=== PATIENT | female | born 1940 | race Caucasian/White ===

== ENCOUNTER 2017-11-03 13:00 | Outpatient (RCR) | payer MEDICARE, SELFPAY ==
--- NOTE | 2017-10-14 14:42 | HMH.PTOPWND ---
Rehab Outpt Wound Evaluation Rehab OP Wound Evaluation Start: 10/14/17 13:56 Freq: Status: Active Protocol: Document 10/14/17 14:34 PHOMICA (Rec: 10/14/17 14:42 PHORNE [id number]) Electronically Signed By Jan Nichols, PT 10/14/17 14:34 Subjective/History History History Pt presents with c/o right lower leg increased edema and itching x ~2 wks. She reports she has had several episodes of these symptoms and previously has a fissure in her right lower leg that was leaking fluid. She reports PMH of CCY, SHANE, left breast lumpectomy x 2 due to breast cancer, rectal cancer treated with chemo and radiation, DVT in left LE, CVI, pulmonary embolism sedrick, Pacemaker, A-fib with nerve ablation performed , pulmonary HTN. Subjective Subjective Currently no c/o pain. Lymphedema Eval Classification of Lymphedema Secondary Lymphedema Yes Stemmer's sign Stemmer's Sign no Stage of Lymphedema Lymphedema stages Stage I (Pitting edema, reduces w/ elevation, no fibrosis) Skin Changes Dry Skin Yes Taut, Shiny Skin Yes Redness Yes Affected Extremities Areas Affected by Lymphedema/Edema Right Lower Extremity Manual Lymphatic Drainage Treatment Area MLD Treatment Area Right Lower Extremity Wound Problems/Impairments Impairments Problems/Impairmments Palpation Tenderness Impaired Endurance Impaired Gait Pattern Impaired Walking Impaired Standing Increased Edema Lymphedema Present Wound Care Needs Impaired Self Care/Self Management Prognosis Rehab Potential Fair Clinical Impression Consistent with Diagnosis Yes Short Term Goals Number of Weeks 4 Decreased Palpation Tenderness Yes: to min Patient to Understand Lymphedema Yes Treatment and Exercises Decrease Girth Measurments by (cm) Yes: 5 cm 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
== END 2017-11-03 13:01 | disposition home or self-care (01) ==
LOC: PT 13:00
PROVIDERS: Family Provider Family Medicine; PCP Family Medicine; Visit Provider Internal Medicine
DX: I87.2 Venous insufficiency (chronic) (peripheral) (principal)
CPT/HCPCS: 97140; 97162; 97760

== ENCOUNTER → 2018-07-09 10:50 | Outpatient (CLI) | payer MEDICARE, SELFPAY ==
[2018-07-10 17:19] LABS: C difficile Toxins AB, EIA Negative (Negative)
== END ==
PROVIDERS: Visit Provider Internal Medicine
DX: R19.7 Diarrhea, unspecified (principal)
CPT/HCPCS: 87324

== ENCOUNTER → 2018-10-13 13:54 | Outpatient (CLI) | payer MEDICARE, SELFPAY ==
--- NOTE | 2018-10-13 13:56 | XR_ITS ---
XR DEXA axial skeleton HISTORY: ITS.REASON: POST MENOAPSUAL ORDERING PHYSICIAN: Jose Bernal PATIENT AGE: 78 years COMPARISON: None FINDINGS: The BMD measured at the Left femoral neck is 0.657 g/cm squared with a T score of -2.7. This is considered Osteoporotic according to the World Health Organization criteria. Fracture risk is High. Treatment is advised. The L1 L4 density has a T score of 3.0 likely secondary to osteosclerosis of the endplates. IMPRESSION: Osteoporosis with high fracture risk. Treatment is advised. Recommend follow-up exam september 2019
== END ==
PROVIDERS: PCP Internal Medicine; Visit Provider Internal Medicine
DX: Z78.0 Asymptomatic menopausal state (principal)
CPT/HCPCS: 77080

== ENCOUNTER → 2019-02-19 13:44 | Outpatient (CLI) | payer MEDICARE, SELFPAY ==
[2019-02-19 13:55] LABS: Basophils # 0.1 K/mm3 (0-0.2); Basophils % 0.7 % (0.1-2.0); Eosinophils # 0.1 K/mm3 (0.0-0.4); Eosinophils % 2.1 % (0.1-12.0); Hematocrit 41.4 % (37.0-47.0); Hemoglobin 12.3 g/dL (12.2-16.2); Lymphocytes # 1.2 K/mm3 (0.7-4.5); Lymphocytes % 18.5 % (10-50); Mean Corpuscular HGB Conc 29.8 g/dL (31.8-35.4); Mean Corpuscular Hemoglobin 29.9 pg (27.0-31.2); Mean Corpuscular Volume 100.5 fl (81-99); Monocytes # 0.4 K/mm3 (0.1-1.0); Monocytes % 6.4 % (1.7-9.3); Neutrophils # 4.8 K/mm3 (1.8-7.8); Neutrophils % 72.3 % (37.0-80.0); Platelet Count 247 K/mm3 (142-424); Red Blood Count 4.12 M/mm3 (4.20-5.40); Red Cell Distribution Width 15.1 % (11.5-17.5); White Blood Count 6.6 K/mm3 (4.8-10.8)
== END ==
PROVIDERS: Visit Provider Internal Medicine
DX: K92.1 Melena (principal)
CPT/HCPCS: 36415; 85025

== ENCOUNTER → 2019-11-01 11:21 | Outpatient (CLI) | payer MEDICARE, SELFPAY ==
[2019-11-01 15:24] LABS: Coronavirus 19 IgG Antibody Negative (Negative); Coronavirus 19 IgM Antibody Negative (Negative)
== END ==
PROVIDERS: Visit Provider Ophthalmology
DX: Z01.818 Encounter for other preprocedural examination (principal)
CPT/HCPCS: 36415; 86328

== ENCOUNTER 2019-11-02 07:49 | Day surgery (SDC) | payer MEDICARE, SELFPAY ==
[2019-10-27 10:17] VITALS: BMI 40.4
--- NOTE | 2019-10-29 09:46 | SUR.PREOP ---
10/29/2019 @ 5795--PHONE CALL MADE TO PATIENT. PATIENT UNDERSTANDS THAT LAB WORK AND COVID TESTING NEEDS TO BE COMPLETED @ 1130 ON 11/01/2019. PATIENT UNDERSTANDS IF LAB WORK AND COVID-19 TESTS ARE NOT COMPLETED BY 12PM ON THAT DATE, THE SURGERY SCHEDULED WILL BE CANCELLED AND RESCHEDULED FOR ANOTHER TIME.
[2019-11-02 08:18] VITALS: BP 137/66; PULSE 90; RESP 18; TEMP 36.1; O2SAT 96
[2019-11-02 09:15] VITALS: BP 113/75; PULSE 77; RESP 22; O2SAT 100
[2019-11-02 09:20] VITALS: BP 138/75; PULSE 75; RESP 22; O2SAT 99
[2019-11-02 09:25] VITALS: BP 134/75; PULSE 75; RESP 20; O2SAT 100
[2019-11-02 09:30] VITALS: BP 135/65; PULSE 76; RESP 20; O2SAT 100
[2019-11-02 09:34] VITALS: BP 142/69; PULSE 93; RESP 18; TEMP 36.2; O2SAT 98
== END 2019-11-02 09:45 | disposition home or self-care (01) ==
LOC: OR 07:51
PROVIDERS: PCP Internal Medicine; Visit Provider Ophthalmology
DX: H25.813 Combined forms of age-related cataract, bilateral (principal); H53.8 Other visual disturbances; H02.839 Dermatochalasis of unspecified eye, unspecified eyelid; Z79.899 Other long term (current) drug therapy; Z79.01 Long term (current) use of anticoagulants; Z88.1 Allergy status to other antibiotic agents; Z88.5 Allergy status to narcotic agent; Z88.2 Allergy status to sulfonamides
CPT/HCPCS: 66984; V2632

== ENCOUNTER → 2019-12-06 11:19 | Outpatient (CLI) | payer MEDICARE, SELFPAY ==
[2019-12-06 12:52] LABS: Coronavirus 19 IgG Antibody Negative (Negative); Coronavirus 19 IgM Antibody Negative (Negative)
== END ==
PROVIDERS: Visit Provider Ophthalmology
DX: Z01.818 Encounter for other preprocedural examination (principal)
CPT/HCPCS: 36415; 86328

== ENCOUNTER 2019-12-07 06:44 | Day surgery (SDC) | payer MEDICARE, SELFPAY ==
[2019-12-02 16:26] VITALS: BMI 40.3
[2019-12-07 07:26] VITALS: BP 115/59; PULSE 78; RESP 18; TEMP 36.8; O2SAT 97
[2019-12-07 07:49] VITALS: BP 166/76; PULSE 75; RESP 20; O2SAT 100
[2019-12-07 07:54] VITALS: BP 171/85; PULSE 76; RESP 20; O2SAT 100
[2019-12-07 07:59] VITALS: BP 166/92; PULSE 75; RESP 18; O2SAT 99
[2019-12-07 08:04] VITALS: BP 160/86; PULSE 74; RESP 18; O2SAT 99
[2019-12-07 08:08] VITALS: BP 145/86; PULSE 75; RESP 16; TEMP 36.2; O2SAT 99
== END 2019-12-07 08:23 | disposition home or self-care (01) ==
LOC: OR 06:46
PROVIDERS: PCP Internal Medicine; Visit Provider Ophthalmology
DX: H26.9 Unspecified cataract (principal); I48.91 Unspecified atrial fibrillation; Z95.0 Presence of cardiac pacemaker; Z90.710 Acquired absence of both cervix and uterus; Z90.10 Acquired absence of unspecified breast and nipple; Z90.49 Acquired absence of other specified parts of digestive tract; Z90.6 Acquired absence of other parts of urinary tract; Z88.2 Allergy status to sulfonamides; Z88.1 Allergy status to other antibiotic agents; Z88.5 Allergy status to narcotic agent; Z88.8 Allergy status to other drugs, medicaments and biological substances; Z79.899 Other long term (current) drug therapy
CPT/HCPCS: 66984; V2632

== ENCOUNTER → 2020-01-27 06:50 | Outpatient (CLI) | payer MEDICARE, SELFPAY ==
--- NOTE | 2020-01-27 06:51 | CA_ITS ---
APPROVED REPORT EXAM: Comprehensive 2D, Doppler, and color-flow Echocardiogram Patient Accounting Representative: Vida Eldridge RDCS Ht: 5 ft 8 in Wt: 268lbs BSA: 2.31 BP: 119/74 mmHg Indications: PP,AF,SOA 2D Dimensions LVOT 2.27 cm (M/F) 1.5-2.5 M-Mode Dimensions RVDd 3.18 cm (0.9-2.6) LVDd 5.38 cm (3.5-5.7) LVDs 4.39 cm (3.5-5.7) IVSd 0.99 cm (0.6-1.1) PWd 0.76 cm (0.6-1.1) EF (Teich) 37.80% FS 18.40% EDV (Teich) 140.10 mL ESV (Teich) 87.20 mL Aortic Valve LVOT Max 98.00 (70-110 cm/s) LVOT VTI 16.17 cm Left Ventricle Technically difficult study because of the patient factors and poor acoustic windows. Endocardial surfaces are poorly visualized. Left atrium is mildly enlarged, left ventricle is normal size, mild concentric left ventricular hypertrophy, visually estimated ejection fraction approximately 45 to 50%, there is no obvious regional wall motion abnormality. Diastolic parameters are inconclusive. Right Ventricle Right atrium and right ventricular normal size and contractility, there is pacemaker leads in right ventricle. Aortic Valve Aortic valve is thickened and calcified leaflet, display good mobility, there is no aortic stenosis or aortic insufficiency. Mitral Valve Mitral valve is minimally thickened, there is mild mitral regurgitation. Tricuspid Valve Tricuspid valve is grossly normal, there is mild tricuspid regurgitation, tricuspid regurgitation jet loss is inadequate for calculation of the right ventricular systolic pressure. Pulmonic Valve Pulmonic valve is poorly visualized. Great Vessels Aortic root is normal size. Pericardium No significant pericardial effusion noted. Conclusion 1. Mildly enlarged left atrium, normal left ventricular size, mild concentric left ventricular hypertrophy, visually estimated ejection fraction 45 to 50%, endocardial surfaces are very poorly visualized, diastolic parameters are inconclusive. 2. Mild mitral and tricuspid regurgitation. 3. No significant pericardial effusion noted. Electronically signed by : Mateo Be, 01/27/2020 15:51:57
--- NOTE | 2020-01-27 06:51 | NM_ITS ---
APPROVED REPORT Exam: Nuclear Stress Test Indication: a-fib Patient Location: Outpatient Stress Tech: Keyanna Carternkson NM Tech:GEOVANNI Torres RT(R)(N) Ht: 5 ft 8 in Wt: 271 lbs Bra Size: 50DDD HR: 75 bpm BP: 123/65 mmHg BSA: 2.33 m2 BMI: 41.2 History: A-FIB Procedure: Patient received a 0.4 mg of intravenous Lexiscan, resting heart rate 75 bpm, resting blood pressure 123/65 mmHg, with Lexiscan maximum heart rate achived was 75 bpm which is Less than 85 % of the maximum predicted heart rate and blood pressure was 118/50 mmHg. With Lexiscan, patient denied any complaint of chest pain. Electrocardiogram Resting electrocardiogram showed electronically paced rhythm, with Lexiscan there is less than 1.[address] segment depression noted from the baseline EKG. The EKG portion of the Lexiscan is nondiagnostic. Cardiac Stress and Resting SPECT Images: Cardiac Stress and Resting SPECT images were obtained using technetium 99m Myoview 29.9 mCi stress and 10.58 mCi at rest. Gated SPECT with analysis of segmental wall motion and calculation of the ejection fraction also done. Cardiac stress and resting SPECT images show a fixed defect involving the posterolateral wall is likely secondary to prior myocardial infarction, computer ejection fraction is 32% with marked posterolateral wall hypokinesis. Right ventricle is normal size and contractility. Conclusion: 1. The EKG portion of the Lexiscan Myoview is nondiagnostic. 2. Scintigraphic evidence of myocardial scarring involving the posterolateral wall. Computer ejection fraction is 32% with segmental wall motion abnormality described above, right ventricle is normal size and contractility. 3. Abnormal Lexiscan Myoview study. Electronically signed by : Mateo Be, 01/27/2020 15:43:10
--- NOTE | 2020-01-27 06:51 | CA_ITS ---
APPROVED REPORT Exam: Pharmacologic Technologist: Federica Red, Ht: 5 ft 8 in Wt: 268 lbs BSA: 2.31 m2 HR: 75 bpm BP: 123/65 mmHg Rhythm: VENTRICULAR PACED RHYTHM Medical History Medical History: Atrial Fibrillation, HTN Medications: Levothyroxine,,,,, Warfarin,,,,, Metoprolol,,,,, TopIRAMATE,,,,, SyMBICORT,,,,, Vit D3,,,,, TorSEMIDE,,,,, DOcusate,,,,, ANASTROZOLE,,,,, Calicum,,,,, Alendronate,,,,, DiOSMIN,,,,, Allergies: METAXALONE, ATROPINE, HYCOSAMINE, LIDOCAINE, OXYCODONE, MORPHINE Previous Cardiac Procedures: Ablation, Pacemaker Stress Test Details Test: LEXISCAN HR Resting HR: 75 bpm Max Heart Rate (APMHR): 140 bpm Max HR Achieved: 86 bpm Target HR (85% APMHR): 119 bpm % of APMHR: 61 Recovery HR: 75 bpm BP Resting BP: 123.0/65.0 mmHg Max BP: 123.0/65.0 mmHg Recovery BP: 112.0/45.0 mmHg ECG Resting ECG: V. PACED RHYTHM Clinical Exercise duration: 04:03 min Highest Stage Achieved: Exercise capacity: 1.0 METs Stress ECG Conclusion DURING INFUSION PATIENT HAD HEADACHE AND MALAISE BUT NO CHEST PAIN. OCCASIONAL PVC. NO SIGNIFICANT ST-T CHANGES. UNREMARKABLE LEXISCAN STRESS. MYOVIEW IMAGES REPORTED SEPARATELY Electronically signed by : Mateo Be, 01/27/2020 15:38:51
--- NOTE | 2020-01-27 09:26 | HMH.ITSHM ---
Current Home Medications as stated by this patient Sofía Alonzo or account maintenance representative. [] alendrnate anastrozole symbicort levothyroxine ildefonso
== END ==
PROVIDERS: PCP Internal Medicine; Visit Provider Urology
DX: I10 Essential (primary) hypertension (principal); I48.91 Unspecified atrial fibrillation; R06.00 Dyspnea, unspecified; Z86.711 Personal history of pulmonary embolism; Z95.0 Presence of cardiac pacemaker
CPT/HCPCS: 78452; 93017; 93306; A9502; J2785

== ENCOUNTER → 2020-02-03 10:25 | Outpatient (CLI) | payer MEDICARE, SELFPAY ==
--- NOTE | 2020-02-03 10:27 | MM_ITS ---
PROCEDURE: MM DIG SCREENING MAMM BI W/CAD Digital Breast Tomosynthesis Included CLINICAL INDICATION: SCREENING There is a history of lumpectomy left breast for malignancy with follow-up radiation therapy and chemotherapy. There is a history of breast cancer patient's 2 sisters. COMPARISON: MG MAMMO DIAGNOSTIC DIGITAL TOMOSYNTHESIS LEFT W CAD from 02/21/2017 MG MAMMO DIAGNOSTIC DIGITAL TOMOSYNTHESIS BILATERAL W CAD from 08/21/2017 MG MAMMO DIAGNOSTIC LEFT W CAD from 02/23/2018 MG MAMMO DIAGNOSTIC DIGITAL TOMOSYNTHESIS BILATERAL W CAD from 08/24/2018 TECHNIQUE: Standard CC and MLO images and 3D Tomosynthesis was obtained. R2 CAD reviewed. FINDINGS: Moderate somewhat heterogenic fibroglandular densities are seen in the central portions of both breasts. There is moderate postlumpectomy scarring upper outer quadrant left breast with at least 4 biopsy clips seen tube which are likely from the previous lumpectomy the other 2 from additional biopsies were which were performed. Stable multiple calcification are seen in left breast most of which are secondary to previous secretory disease. There are few benign-appearing microcalcifications right breast. There is a biopsy clip right breast. There are wires from a cardiac device left axilla seen at the edge of the field of view. There is no new or suspicious lesion in either breast. Too numerous to count microcalcifications are seen left breast but kayla images are most helpful in evaluation of the calcifications and also the postlumpectomy scarring. IMPRESSION: Stable exam with stable multiple calcifications and postlumpectomy scarring left breast and no new suspicious lesions seen BI-RAD Category: 2 Benign Finding(s) FOLLOW-UP: 1YR 1 Year Follow-up (A letter has been sent to the patient regarding results of the study.) Dictated by: Dr. Axel Alcaraz MD 02/06/2020 20:18 Dr. Axel Alcaraz MD in [place] 02/06/2020 20:18
== END ==
PROVIDERS: PCP Internal Medicine; Visit Provider Internal Medicine
DX: Z12.31 Encounter for screening mammogram for malignant neoplasm of breast (principal)
CPT/HCPCS: 77063; 77067

== ENCOUNTER 2020-02-08 08:16 | Day surgery (SDC) | payer MEDICARE, SELFPAY ==
[2020-02-08] VITALS (13 sets, daily range): BP systolic 132–179; BP diastolic 69–94; PULSE 75–85; RESP 16–20; TEMP 36.6; O2SAT 94–100; BMI 41.9
--- NOTE | 2020-02-08 09:00 | IR_ITS ---
APPROVED REPORT Patient Location: Outpatient PROCEDURES Left heart catheterization Left ventriculogram Selective coronary angiogram INDICATION Systolic congestive heart failure with ejection fraction of 32%, High risk abnormal Myoview Informed consent was obtained prior to the procedure. COMPLICATIONS NONE Estimated Blood Loss: LESS THAN 10 ML TECHNIQUE One percent lidocaine used to anesthetize the right anterior aspect of the wrist. The right radial artery was accessed via the Seldinger technique. A 6 Guine[place] sheath was placed in the right radial artery. 2.5 mg of verapamil, 800 mcg of nitroglycerin, 1mg Lidocaine and 5000 U Heparin were given through the arterial sheath. The trap catheter was also used to perform left heart catheterization, left ventriculogram and selective coronary angiogram. At the end of the procedure the sheath was removed good hemostasis was achieved using Traclet band, patient was transferred to the postop holding area in stable condition. 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 Schedule patient for biventricular pacemaker/cardiac resynchronization therapy Electronically signed by : Bashir Mckay, 02/08/2020 11:12:56
[2020-02-08 09:42] LABS: Basophils % 0.5 % (0.1-2.0); Eosinophils # 0.2 K/mm3 (0.0-0.4); Eosinophils % 2.2 % (0.1-12.0); Hemoglobin 13.2 g/dL (12.2-16.2); Lymphocytes # 1.1 K/mm3 (0.7-4.5); Lymphocytes % 15.9 % (10-50); Mean Corpuscular HGB Conc 34.6 g/dL (31.8-35.4); Mean Corpuscular Hemoglobin 33.9 pg (27.0-31.2); Mean Corpuscular Volume 97.9 fl (81-99); Mean Platelet Volume 8.5 fl (7.4-10.4); Monocytes # 0.4 K/mm3 (0.1-1.0); Monocytes % 6.3 % (1.7-9.3); Neutrophils # 5.3 K/mm3 (1.8-7.8); Neutrophils % 75.2 % (37.0-80.0); Platelet Count 155 K/mm3 (142-424); Red Blood Count 3.88 M/mm3 (4.20-5.40); Red Cell Distribution Width 14.4 % (11.5-17.5)
[2020-02-08 09:49] LABS: Chloride 105 mmol/L (98-107); Potassium 4.3 mmoL/L (3.5-5.1); Sodium 141 mmol/L (136-145)
[2020-02-08 09:52] LABS: Anion Gap 14.3 mEq/L (5-15); Blood Urea Nitrogen 24 mg/dl (7-17); Carbon Dioxide 26 mmol/L (22.0-30.0); Creatinine Clearance Estimated 32 mL/min (50-200); Estimated Glomerular Filt Rate 36 ml/min (>60); GFR (African American) 44 ML/MIN (>60)
[2020-02-08 09:53] LABS: Calcium 9.9 mg/dl (8.4-10.2); Glucose 112 mg/dl (74-100)
[2020-02-08 10:23] LABS: Coronavirus 19 IgG Antibody Negative (Negative)
[2020-02-08 11:59] LABS: Coronavirus 19 IgM Antibody Negative (Negative)
== END 2020-02-08 14:08 | disposition home or self-care (01) ==
LOC: CATHLAB 08:17
PROVIDERS: PCP Internal Medicine; Visit Provider Internal Medicine
DX: I11.0 Hypertensive heart disease with heart failure; I50.22 Chronic systolic (congestive) heart failure; G47.33 Obstructive sleep apnea (adult) (pediatric); I42.9 Cardiomyopathy, unspecified; I48.20 Chronic atrial fibrillation, unspecified; R06.00 Dyspnea, unspecified; R94.31 Abnormal electrocardiogram [ECG] [EKG]; R94.39 Abnormal result of other cardiovascular function study; Z82.49 Family history of ischemic heart disease and other diseases of the circulatory system; Z85.3 Personal history of malignant neoplasm of breast; Z86.39 Personal history of other endocrine, nutritional and metabolic disease; Z86.711 Personal history of pulmonary embolism; Z95.0 Presence of cardiac pacemaker
CPT/HCPCS: 80048; 85025; 86328; 93458; 99152; C1725; C1760; C1769; J1644; Q9967

== ENCOUNTER → 2020-02-21 12:40 | Outpatient (CLI) | payer MEDICARE, SELFPAY ==
--- NOTE | 2020-02-21 12:40 | NM_ITS ---
APPROVED REPORT NM Technologist: GEOVANNI Miller, RT (R)(N) Indication Abnormal ECG Dyspnea Hypertension/HCVD Cardiomyopathy Procedure The above named patient was injected with 26.8 mCi of Tc99m tagged red blood cells. Impression Resting MUGA scan showed an ejection fraction of 54% with no regional wall motion abnormality. Conclusion Resting MUGA scan showed an ejection fraction of 54% with no regional wall motion abnormality. Electronically signed by : Mateo Be, 02/21/2020 17:37:10
== END ==
PROVIDERS: PCP Internal Medicine; Visit Provider Nurse Practitioner Family
DX: G47.33 Obstructive sleep apnea (adult) (pediatric) (principal); I10 Essential (primary) hypertension; I42.9 Cardiomyopathy, unspecified; I48.91 Unspecified atrial fibrillation; R06.00 Dyspnea, unspecified; R94.31 Abnormal electrocardiogram [ECG] [EKG]; R94.39 Abnormal result of other cardiovascular function study; Z01.810 Encounter for preprocedural cardiovascular examination; Z82.49 Family history of ischemic heart disease and other diseases of the circulatory system; Z85.3 Personal history of malignant neoplasm of breast; Z86.39 Personal history of other endocrine, nutritional and metabolic disease; Z86.711 Personal history of pulmonary embolism; Z95.0 Presence of cardiac pacemaker
CPT/HCPCS: 78473; A9512; A9560; J1642

== ENCOUNTER → 2020-03-23 10:18 | Outpatient (CLI) | payer MEDICARE, SELFPAY ==
[2020-03-23 11:06] LABS: Basophils # 0.1 K/mm3 (0-0.2); Basophils % 0.6 % (0.1-2.0); Eosinophils # 0.2 K/mm3 (0.0-0.4); Eosinophils % 2.7 % (0.1-12.0); Hematocrit 39.2 % (37.0-47.0); Hemoglobin 12.9 g/dL (12.2-16.2); Lymphocytes # 1.7 K/mm3 (0.7-4.5); Lymphocytes % 21.3 % (10-50); Mean Corpuscular HGB Conc 32.8 g/dL (31.8-35.4); Mean Corpuscular Hemoglobin 32.5 pg (27.0-31.2); Mean Corpuscular Volume 98.9 fl (81-99); Mean Platelet Volume 7.9 fl (7.4-10.4); Monocytes # 0.5 K/mm3 (0.1-1.0); Monocytes % 6.6 % (1.7-9.3); Neutrophils # 5.5 K/mm3 (1.8-7.8); Neutrophils % 68.9 % (37.0-80.0); Platelet Count 234 K/mm3 (142-424); Red Blood Count 3.96 M/mm3 (4.20-5.40); Red Cell Distribution Width 14.5 % (11.5-17.5)
[2020-03-23 12:03] LABS: NT Pro Brain Natriuretic Pep. 1470 pg/mL (0-450)
[2020-03-23 16:26] LABS: Chloride 107 mmol/L (98-107); Potassium 4.3 mmoL/L (3.5-5.1); Sodium 142 mmol/L (136-145)
[2020-03-23 16:29] LABS: Anion Gap 13.3 mEq/L (5-15); Blood Urea Nitrogen 39 mg/dl (7-17); Carbon Dioxide 26 mmol/L (22.0-30.0); Estimated Glomerular Filt Rate 33 ml/min (>60); GFR (African American) 40 ML/MIN (>60)
[2020-03-23 16:30] LABS: Calcium 9.7 mg/dl (8.4-10.2); Glucose 111 mg/dl (74-100)
== END ==
PROVIDERS: Urology; Visit Provider Internal Medicine Cardiovascular Disease
DX: R06.00 Dyspnea, unspecified (principal); R60.9 Edema, unspecified; I10 Essential (primary) hypertension; I48.91 Unspecified atrial fibrillation; R60.0 Localized edema; Z86.711 Personal history of pulmonary embolism; Z95.0 Presence of cardiac pacemaker; Z01.810 Encounter for preprocedural cardiovascular examination
CPT/HCPCS: 36415; 80048; 83880; 85025

== ENCOUNTER → 2020-10-04 10:31 | Outpatient (CLI) | payer MEDICARE, SELFPAY | PROVIDERS: Visit Provider Internal Medicine Gastroenterology | DX: Z01.812 Encounter for preprocedural laboratory examination (principal); Z11.52 Encounter for screening for COVID-19; Z85.048 Personal history of other malignant neoplasm of rectum, rectosigmoid junction, and anus | CPT/HCPCS: U0003 ==

== ENCOUNTER 2020-10-06 10:18 | Day surgery (SDC) | payer MEDICARE, SELFPAY ==
[2020-09-26 08:31] VITALS: BMI 40.8
[2020-10-06] VITALS (7 sets, daily range): BP systolic 84–143; BP diastolic 40–95; PULSE 74–77; RESP 18; TEMP 36.3–36.5; O2SAT 93–100
--- NOTE | 2020-10-06 11:59 | P.PN_ITS ---
[facility] Anesthesia Checklist - Structural Data Admitted From: Home Planned Operative Procedure/s: colonoscopy Consent for Planned Operative Procedure(s) Verified: Yes - Airway Assessment C-Spine Mobility Assessed: Yes TMJ Mobility Assessed: Yes Dentition: Poor Dentition - Neurological Assessment Level of Consciousness: Awake, Alert, Appropriate - Anesthesia Plan Anesthesia Risk discussed: Yes Anesthesia Plan: Verified ASA Class: III Anesthesia Type: MAC [facility] History I have reviewed the patient's past medical history: Yes Medical History: Reports:: Atrial Fibrillation, Cancer (breast, anus), Deep Vein Thrombosis, Hypertension, Internal Pacemaker, Pulmonary Embolism Denies:: Diabetes Mellitus Type 1, Diabetes Mellitus Type 2, MRSA, Seizures *Have you ever received a pneumonia vaccine?: Yes *Have you received a flu vaccine this season?: Yes Other Medical History: Reports: Arthritis, Cataracts (right and left eye ), Hypothyroidism, Radiation Therapy, Thyroid Disease Anesthesia experience/problems:: none Laterality Cases: Left: Lumpectomy, Bilateral: Cataract, Other Other Surgeries: Yes: Cardiac Catheterization, Cardiac Surgery (cardiac ablation), Cholecystectomy, Colonoscopy, Hysterectomy-Total, Pacemaker Amputation: No Fractures: No - *Social History Last grade of school completed: High school graduate Smoking Status: Never smoker Alcohol Intake: never Alcohol Intake Frequency:: other Substance Use Type: denies use *Occupational Status:: retired Housing: apartment Household Members: none *Travel in the last 8 weeks: None Family Hx:: Coronary Artery Disease, Hyperlipidemia
--- NOTE | 2020-10-06 12:19 | HMH.PROC ---
[facility] Procedure Note Procedure Note:: Colonoscopy Procedure Report: Colonoscopy with cold biopsies and cold snare polypectomy Endoscopist: Zak Bello II, MD Referring physician: Jose Bernal MD Date of Procedure: October 06, 2020 Equipment: Olympus 190 variable stiffness pediatric colonoscope Sedation: MAC sedation Indication: Mrs. Alonzo is an 80-year-old female with a history of anal cell carcinoma. She did have surgery followed by radiation therapy and chemotherapy. She remains on a single chemotherapeutic drug. She was treated by Dr. Halima Finn MD (colorectal surgery) and Dr. Phillip (oncology) in [place]. She is transferring care to [facility]. The patient does have chronic diarrhea. She does have bowel and bladder control issues which have been longstanding. She did have InterStim twice that failed. She reports no rectal bleeding, weight loss or family history of colon cancer. Her last colonoscopy was in 2014 (6 years ago) at which time the anal cancer was discovered and this was prior to her treatment. Procedure: Prior to the procedure, a history and physical exam was performed, and patient's medications and allergies were reviewed. The risks, benefits and alternatives of the sedation and procedure were discussed with the patient. All questions were answered and informed consent was obtained. The patient was brought to the procedure room. Patient identification and proposed procedure were verified by the physician and the nurse. The patient was placed in a left lateral decubitus position and the scope was passed under direct vision. Throughout the procedure, the patient's blood pressure, pulse, and oxygen saturations were monitored continuously. The colonoscopy was accomplished without difficulty. The patient tolerated the procedure well. Findings: On digital rectal examination there was normal to slightly decreased rectal tone. There were no external hemorrhoids. There was no palpable mass, polyp or significant anal fibrosis. The colonoscope was introduced through the anal canal to the rectum and advanced to the cecum. The ileocecal valve and appendiceal orifice were identified. The scope was advanced a short distance into the ileum which appeared grossly normal. The scope was then withdrawn into the colon. There was a single diminutive 3 to 4 mm polyp in the ascending colon removed via cold snare polypectomy. Cold biopsies were taken from the right colon x4 to rule out microscopic colitis. The remaining cecum, ascending, transverse, descending and sigmoid: Were grossly normal. Within the rectum there was loss of vascular pattern with reduced rectal vault (stiffness) and distal telangiectasias consistent with radiation proctitis. There were grade 1-2 internal hemorrhoids. There was mild serration at the pectinate line but no masses or polyps. Because of the stiffness in the rectum, retroflexion was difficult and retroflexion was performed but there were changes of radiation proctitis on the retroflexed view. The preparation was excellent throughout with [place] Preparation Score of 9. The cecal time was 12 minutes. Impression: 1. Diminutive ascending colon polyp 2. Radiation proctitis Plan: I will follow-up the biopsies. I do feel that the patient has bowel and bladder control issues that are probably pelvic floor/neuromuscular. She has failed sacral nerve modulation/InterStim. I would encourage bulk fiber supplementation (FiberCon). If the biopsies show evidence of microscopic colitis, I would initiate additional treatment. I am not convinced that she will require any further surveillance colonoscopy.
== END 2020-10-06 13:35 | disposition home or self-care (01) ==
LOC: OUTP 10:21
PROVIDERS: PCP Internal Medicine; Visit Provider Internal Medicine Gastroenterology
PROC: 0DJD8ZZ Inspection of Lower Intestinal Tract, Via Natural or Artificial Opening Endoscopic (ICD-10-PCS; CPT 45378; principal; 2020-10-06 11:30)
DX: K63.5 Polyp of colon (principal); K62.7 Radiation proctitis; Z85.040 Personal history of malignant carcinoid tumor of rectum; K64.0 First degree hemorrhoids; Z85.3 Personal history of malignant neoplasm of breast; I48.91 Unspecified atrial fibrillation; I10 Essential (primary) hypertension; Z86.718 Personal history of other venous thrombosis and embolism; Z95.0 Presence of cardiac pacemaker; Z86.711 Personal history of pulmonary embolism; Z90.49 Acquired absence of other specified parts of digestive tract; Z90.710 Acquired absence of both cervix and uterus
CPT/HCPCS: 45380; 45385; 88305

== ENCOUNTER → 2021-01-15 14:40 | Outpatient (POV) | payer MEDICARE, SELFPAY | PROVIDERS: Visit Provider Nurse Practitioner Family | DX: Z00.00 Encounter for general adult medical examination without abnormal findings (principal) ==

== ENCOUNTER → 2021-02-01 09:12 | Outpatient (CLI) | payer MEDICARE, MEDICAID, SELFPAY ==
--- NOTE | 2021-02-01 09:15 | XR_ITS ---
PROCEDURE: XR DEXA AXIAL SKELETON CLINICAL HISTORY: POST-MENOPAUSAL COMPARISON: CR DEXAAX XR DEXA axial skeleton from 10/13/2018 FINDINGS: The right hip BMD is 0.69 with a T-score of -1.4. The left hip BMD is 0.703 with a T-score of -1.3. The lumbar spine BMD is 1.258 with a T-score of 1.9. Previously the lowest density was within the left femoral neck with T-score of -2.7 IMPRESSION: This patient is considered osteopenic according to the World Health Organization criteria. Bone density is between 10 and 25 percent below young normal. Fracture risk is moderate. Treatment is advised. Based on these results a follow-up exam is recommended in 2 year. Dictated by: Aly Beavers MD 02/01/2021 14:23 Aly Beavers MD in [place] 02/01/2021 14:23
--- NOTE | 2021-02-01 09:15 | MM_ITS ---
PROCEDURE: MM DIG SCREENING MAMM BI W/CAD Digital Breast Tomosynthesis Included The CLINICAL INDICATION: SCREENING COMPARISON: MG MAMMO DIAGNOSTIC DIGITAL TOMOSYNTHESIS LEFT W CAD from 02/22/2016 MG MAMMO DIAGNOSTIC LEFT W CAD from 02/23/2018 MG MAMMO DIAGNOSTIC DIGITAL TOMOSYNTHESIS BILATERAL W CAD from 08/24/2018 MG MM DIG SCREENING MAMM BI W/CAD from 02/03/2020 TECHNIQUE: Standard CC and MLO images and 3D Tomosynthesis was obtained. R2 CAD reviewed. FINDINGS: The breasts are heterogeneously dense which may obscure small masses.. There are numerous areas of calcification in the left breast with post lumpectomy scarring in the upper outer quadrant and multiple biopsy clips present. Biopsy clip right breast also noted. Wires from a pacemaker noted in the left axillary region. Architectural distortion noted in the biopsy site in the upper outer quadrant. Overall no significant change with no evidence of malignancy IMPRESSION: No change with no evidence of malignancy BI-RAD Category: 2 Benign Finding FOLLOW-UP: 1 YR 1 Year Follow-up (A letter has been sent to the patient regarding results of the study.) Dictated by: Aly Beavers MD 02/14/2021 13:46 Aly Beavers MD in [place] 02/14/2021 13:46
== END ==
PROVIDERS: PCP Internal Medicine; Visit Provider Internal Medicine
DX: Z12.31 Encounter for screening mammogram for malignant neoplasm of breast (principal); Z13.820 Encounter for screening for osteoporosis; Z78.0 Asymptomatic menopausal state
CPT/HCPCS: 77063; 77067; 77080

== ENCOUNTER → 2021-03-27 12:20 | Outpatient (CLI) | payer MEDICARE, MEDICAID, SELFPAY ==
[2021-03-27 13:19] LABS: Basophils # 0.1 K/mm3 (0-0.2); Basophils % 0.8 % (0.1-2.0); Eosinophils # 0.2 K/mm3 (0.0-0.4); Eosinophils % 2.3 % (0.1-12.0); Hematocrit 37.7 % (37.0-47.0); Hemoglobin 12.1 g/dL (12.2-16.2); Lymphocytes # 1.5 K/mm3 (0.7-4.5); Lymphocytes % 20.7 % (10-50); Mean Corpuscular HGB Conc 32.1 g/dL (31.8-35.4); Mean Corpuscular Hemoglobin 32.2 pg (27.0-31.2); Mean Corpuscular Volume 100.5 fl (81-99); Mean Platelet Volume 9.2 fl (7.4-10.4); Monocytes # 0.4 K/mm3 (0.1-1.0); Monocytes % 5.2 % (1.7-9.3); Neutrophils # 5.3 K/mm3 (1.8-7.8); Neutrophils % 71.1 % (37.0-80.0); Platelet Count 220 K/mm3 (142-424); Red Blood Count 3.75 M/mm3 (4.20-5.40); Red Cell Distribution Width 14.4 % (11.5-17.5); White Blood Count 7.4 K/mm3 (4.8-10.8)
[2021-03-27 21:27] LABS: Anion Gap 16.5 mEq/L (5-15); Blood Urea Nitrogen 22 mg/dl (7-17); Calcium 9.6 mg/dl (8.4-10.2); Carbon Dioxide 23 mmol/L (22.0-30.0); Chloride 108 mmol/L (98-107); Estimated Glomerular Filt Rate 39 ml/min (>60); GFR (African American) 48 ML/MIN (>60); Glucose 116 mg/dl (74-100); Potassium 4.5 mmoL/L (3.5-5.1); Sodium 143 mmol/L (136-145)
== END ==
PROVIDERS: Visit Provider Urology
DX: R06.00 Dyspnea, unspecified (principal); Z45.018 Encounter for adjustment and management of other part of cardiac pacemaker; Z01.812 Encounter for preprocedural laboratory examination; Z11.52 Encounter for screening for COVID-19
CPT/HCPCS: 36415; 80048; 85025; C9803; U0003; U0005

== ENCOUNTER 2021-03-28 09:57 | Day surgery (SDC) | payer MEDICARE, MEDICAID, SELFPAY ==
[2021-03-28] VITALS (11 sets, daily range): BP systolic 106–149; BP diastolic 55–78; PULSE 60–76; RESP 16–20; TEMP 36.2–36.8; O2SAT 91–98; BMI 44.2
--- NOTE | 2021-03-28 | IR_ITS ---
APPROVED REPORT Patient Location: Outpatient Voice And Data Technician: GEOVANNI Smith RT (R) PROCEDURES Pocket Revision Removal of old Pacemaker Implant of Permanent Pacemaker INDICATION Recall of Emery Generator Informed consent was obtained prior to the procedure. COMPLICATIONS NONE Estimated Blood Loss: LESS THAN 10 ML TECHNIQUE 1% lidocaine with epinephrine used to anesthetize the left anterior aspect of the chest. Scalpel was used to make the initial cutaneous incision and then used to dissect down to the existing pacemaker generator. The generator was removed from the existing pocket. Digital manipulation was required along with intermittent usage of scalpel in order to revise the pocket. The leads were removed from the old generator. The new generator was screwed to the existing leads and secured into place. Electronic interrogation proved acceptable thresholds and voltage within the lead. Antibiotics were used to flush the pocket and the pacemaker was secured using 3-0 silk into the newly revised pocket. Monocryl was used to close the subcutaneous tissue and then saravanan were placed on the cutaneous area in order to approximate the incision. Patient was transferred to the postop holding area in stable condition. INTERROGATION Generator Model number: Triblio MRI DR IS-1 L311 Generator Serial number: [id number] Atrial lead model number: 4470 Atrial lead serial number: [id number] P-wave: 1.0 mv Impedence: 554 ohlms Threshold: 2.0 @ 0.4 ms Left Ventricular lead model number: 4457 Left Ventricular lead serial number: [id number] R-wave: Impedence: Threshold: Pacing Parameters: Mode: VVIR Base/Max Track: 70/PM No diaphragmatic stimulation at 10 volts. IMPRESSION 1% lidocaine with epinephrine used to anesthetize the left anterior aspect of the chest. Scalpel was used to make the initial cutaneous incision and then used to dissect down to the existing pacemaker generator. The generator was removed from the existing pocket. Digital manipulation was required along with intermittent usage of scalpel in order to revise the pocket. The leads were removed from the old generator. The new generator was screwed to the existing leads and secured into place. Electronic interrogation proved acceptable thresholds and voltage within the lead. Antibiotics were used to flush the pocket and the pacemaker was secured using 3-0 silk into the newly revised pocket. Monocryl was used to close the subcutaneous tissue and then saravanan were placed on the cutaneous area in order to approximate the incision. Patient was transferred to the postop holding area in stable condition. PLAN 1. Post Op Wound Care Electronically signed by : Bashir Mckay MD 04/05/2021 09:48:55
== END 2021-03-28 13:59 | disposition home or self-care (01) ==
LOC: CATHLAB 09:58
PROVIDERS: PCP Internal Medicine; Visit Provider Internal Medicine
DX: Z45.010 Encounter for checking and testing of cardiac pacemaker pulse generator [battery] (principal); I42.9 Cardiomyopathy, unspecified; G47.33 Obstructive sleep apnea (adult) (pediatric); I48.20 Chronic atrial fibrillation, unspecified; Z79.01 Long term (current) use of anticoagulants
CPT/HCPCS: 33228; C1785; J2704

== ENCOUNTER → 2021-04-04 13:51 | Outpatient (CLI) | payer MEDICARE, MEDICAID, SELFPAY ==
[2021-04-04 14:37] LABS: INR 1.11 (0.9-1.1); Prothrombin Time 12.4 seconds (10.1-12.5)
== END ==
PROVIDERS: Visit Provider Internal Medicine
DX: Z51.81 Encounter for therapeutic drug level monitoring (principal); Z79.01 Long term (current) use of anticoagulants; I48.91 Unspecified atrial fibrillation
CPT/HCPCS: 36415; 85610

== ENCOUNTER → 2021-04-09 14:01 | Outpatient (CLI) | payer MEDICARE, MEDICAID, SELFPAY ==
[2021-04-09 14:28] LABS: INR 2.29 (0.9-1.1); Prothrombin Time 24.3 seconds (10.1-12.5)
[2021-04-09 16:27] LABS: Basophils # 0.1 K/mm3 (0-0.2); Basophils % 0.7 % (0.1-2.0); Eosinophils # 0.1 K/mm3 (0.0-0.4); Eosinophils % 1.5 % (0.1-12.0); Hematocrit 32.5 % (37.0-47.0); Hemoglobin 10.1 g/dL (12.2-16.2); Lymphocytes # 0.8 K/mm3 (0.7-4.5); Lymphocytes % 9.8 % (10-50); Mean Corpuscular HGB Conc 31.2 g/dL (31.8-35.4); Mean Corpuscular Hemoglobin 31.5 pg (27.0-31.2); Monocytes # 0.5 K/mm3 (0.1-1.0); Monocytes % 5.7 % (1.7-9.3); Neutrophils # 6.8 K/mm3 (1.8-7.8); Neutrophils % 82.2 % (37.0-80.0); Platelet Count 347 K/mm3 (142-424); Red Blood Count 3.22 M/mm3 (4.20-5.40); Red Cell Distribution Width 14.9 % (11.5-17.5); White Blood Count 8.3 K/mm3 (4.8-10.8)
== END ==
PROVIDERS: Visit Provider Internal Medicine
DX: R06.09 Other forms of dyspnea (principal); R53.82 Chronic fatigue, unspecified; Z51.81 Encounter for therapeutic drug level monitoring; Z79.01 Long term (current) use of anticoagulants
CPT/HCPCS: 36415; 85025; 85610

== ENCOUNTER → 2021-04-11 14:20 | Outpatient (CLI) | payer MEDICARE, MEDICAID, SELFPAY ==
[2021-04-11 16:11] LABS: Reticulocyte % (Auto) 2.9 % (0.9-3.2)
[2021-04-11 19:24] LABS: Vitamin B12 599 pg/mL (239-931)
[2021-04-11 19:41] LABS: Folate 9.44 ng/mL
== END ==
PROVIDERS: Visit Provider Internal Medicine
DX: R71.8 Other abnormality of red blood cells
CPT/HCPCS: 36415; 82607; 82746; 85044

== ENCOUNTER → 2021-04-16 12:29 | Outpatient (CLI) | payer MEDICARE, MEDICAID, SELFPAY ==
[2021-04-16 13:35] LABS: INR 3.58 (0.9-1.1); Prothrombin Time 36.8 seconds (10.1-12.5)
== END ==
PROVIDERS: Visit Provider Internal Medicine
DX: Z51.81 Encounter for therapeutic drug level monitoring (principal); Z79.01 Long term (current) use of anticoagulants; I48.91 Unspecified atrial fibrillation
CPT/HCPCS: 36415; 85610

== ENCOUNTER → 2021-04-30 12:31 | Outpatient (CLI) | payer MEDICARE, MEDICAID, SELFPAY ==
--- NOTE | 2021-04-30 13:25 | XR_ITS ---
PROCEDURE: XR CHEST 2V CLINICAL HISTORY: dyspnea COMPARISON: CR CXR CHEST(2 VIEWS-NOT PORTABLE) from 06/24/2014 FINDINGS: There is cardiomegaly without failure. No lobar consolidation or collapse. There is a bipolar pacemaker present from left subclavian approach. There are degenerative changes of the thoracic spine. The lungs are clear without infiltrates, suspicious nodules, or pleural effusions. No acute bony abnormalities. IMPRESSION: Cardiomegaly otherwise negative Dictated by: Aly Beavers MD 04/30/2021 14:22 Aly Beavers MD in [place] 04/30/2021 14:22
[2021-04-30 13:45] LABS: INR 2.14 (0.9-1.1); Prothrombin Time 22.9 seconds (10.1-12.5)
== END ==
PROVIDERS: PCP Internal Medicine; Referring Provider Nurse Practitioner Family; Visit Provider Internal Medicine
DX: R06.00 Dyspnea, unspecified (principal); Z51.81 Encounter for therapeutic drug level monitoring; Z79.01 Long term (current) use of anticoagulants; I48.91 Unspecified atrial fibrillation
CPT/HCPCS: 36415; 71046; 85610

== ENCOUNTER → 2021-06-15 13:46 | Outpatient (CLI) | payer MEDICARE, MEDICAID, SELFPAY ==
[2021-06-15 14:37] LABS: Basophils % 0.5 % (0.1-2.0); Eosinophils # 0.1 K/mm3 (0.0-0.4); Eosinophils % 1.5 % (0.1-12.0); Hematocrit 41.7 % (37.0-47.0); Hemoglobin 12.5 g/dL (12.2-16.2); Lymphocytes # 0.8 K/mm3 (0.7-4.5); Lymphocytes % 12.2 % (10-50); Mean Corpuscular HGB Conc 30.1 g/dL (31.8-35.4); Mean Corpuscular Hemoglobin 31.3 pg (27.0-31.2); Mean Platelet Volume 8.7 fl (7.4-10.4); Monocytes # 0.4 K/mm3 (0.1-1.0); Monocytes % 5.5 % (1.7-9.3); Neutrophils # 5.3 K/mm3 (1.8-7.8); Neutrophils % 80.3 % (37.0-80.0); Platelet Count 204 K/mm3 (142-424); Red Cell Distribution Width 15.5 % (11.5-17.5); White Blood Count 6.6 K/mm3 (4.8-10.8)
[2021-06-15 14:47] LABS: INR 1.86 (0.9-1.1); Prothrombin Time 20.1 seconds (10.1-12.5)
== END ==
PROVIDERS: Visit Provider Internal Medicine
DX: Z51.81 Encounter for therapeutic drug level monitoring (principal); Z79.01 Long term (current) use of anticoagulants; I48.0 Paroxysmal atrial fibrillation
CPT/HCPCS: 36415; 85025; 85610

== ENCOUNTER → 2021-07-04 13:42 | Outpatient (CLI) | payer MEDICARE, MEDICAID, SELFPAY ==
[2021-07-04 14:33] LABS: INR 4.69 (0.9-1.1)
[2021-07-04 15:03] LABS: Prothrombin Time 47.3 seconds (10.1-12.5)
== END ==
PROVIDERS: PCP Internal Medicine; Visit Provider Internal Medicine
DX: Z51.81 Encounter for therapeutic drug level monitoring (principal); Z79.01 Long term (current) use of anticoagulants; I48.91 Unspecified atrial fibrillation
CPT/HCPCS: 36415; 85610

== ENCOUNTER → 2021-07-06 13:36 | Outpatient (CLI) | payer MEDICARE, MEDICAID, SELFPAY ==
[2021-07-06 14:51] LABS: INR 2.63 (0.9-1.1); Prothrombin Time 27.7 seconds (10.1-12.5)
== END ==
PROVIDERS: PCP Internal Medicine; Visit Provider Internal Medicine
DX: Z51.81 Encounter for therapeutic drug level monitoring (principal); Z79.01 Long term (current) use of anticoagulants; I48.91 Unspecified atrial fibrillation
CPT/HCPCS: 36415; 85610

== ENCOUNTER → 2021-08-15 14:42 | Outpatient (CLI) | payer MEDICARE, MEDICAID, SELFPAY ==
[2021-08-15 15:09] LABS: INR 4.42 (0.9-1.1); Prothrombin Time 44.7 seconds (10.1-12.5)
== END ==
PROVIDERS: Visit Provider Internal Medicine
DX: Z51.81 Encounter for therapeutic drug level monitoring (principal); Z79.01 Long term (current) use of anticoagulants; I48.91 Unspecified atrial fibrillation
CPT/HCPCS: 36415; 85610

== ENCOUNTER → 2021-08-17 13:16 | Outpatient (CLI) | payer MEDICARE, MEDICAID, SELFPAY ==
[2021-08-17 13:56] LABS: INR 3.72 (0.9-1.1); Prothrombin Time 38.1 seconds (10.1-12.5)
== END ==
PROVIDERS: Visit Provider Internal Medicine
DX: Z51.81 Encounter for therapeutic drug level monitoring (principal); Z79.01 Long term (current) use of anticoagulants; I48.91 Unspecified atrial fibrillation
CPT/HCPCS: 36415; 85610

== ENCOUNTER → 2021-08-20 14:56 | Outpatient (CLI) | payer MEDICARE, MEDICAID, SELFPAY ==
[2021-08-20 15:57] LABS: INR 1.68 (0.9-1.1); Prothrombin Time 18.3 seconds (10.1-12.5)
== END ==
PROVIDERS: Visit Provider Internal Medicine
DX: Z51.81 Encounter for therapeutic drug level monitoring (principal); Z79.01 Long term (current) use of anticoagulants; I48.91 Unspecified atrial fibrillation
CPT/HCPCS: 36415; 85610

== ENCOUNTER → 2021-08-24 14:16 | Outpatient (CLI) | payer MEDICARE, MEDICAID, SELFPAY ==
[2021-08-24 15:35] LABS: INR 1.31 (0.9-1.1); Prothrombin Time 14.5 seconds (10.1-12.5)
== END ==
PROVIDERS: PCP Internal Medicine; Visit Provider Internal Medicine
DX: Z51.81 Encounter for therapeutic drug level monitoring (principal); Z79.01 Long term (current) use of anticoagulants; I48.91 Unspecified atrial fibrillation
CPT/HCPCS: 36415; 85610

== ENCOUNTER → 2021-08-27 14:17 | Outpatient (CLI) | payer MEDICARE, MEDICAID, SELFPAY ==
[2021-08-27 15:18] LABS: INR 2.26 (0.9-1.1)
== END ==
PROVIDERS: PCP Internal Medicine; Visit Provider Internal Medicine
DX: Z51.81 Encounter for therapeutic drug level monitoring (principal); Z79.01 Long term (current) use of anticoagulants; I48.91 Unspecified atrial fibrillation
CPT/HCPCS: 36415; 85610

== ENCOUNTER → 2021-09-04 13:36 | Outpatient (CLI) | payer MEDICARE, MEDICAID, SELFPAY ==
[2021-09-04 14:44] LABS: Prothrombin Time 41.7 seconds (10.1-12.5)
== END ==
PROVIDERS: Visit Provider Internal Medicine
DX: Z51.81 Encounter for therapeutic drug level monitoring (principal); Z79.01 Long term (current) use of anticoagulants; I48.91 Unspecified atrial fibrillation
CPT/HCPCS: 36415; 85610

== ENCOUNTER → 2021-09-18 14:02 | Outpatient (CLI) | payer MEDICARE, MEDICAID, SELFPAY ==
[2021-09-18 14:50] LABS: INR 1.73 (0.9-1.1); Prothrombin Time 18.8 seconds (10.1-12.5)
== END ==
PROVIDERS: Visit Provider Internal Medicine
DX: Z51.81 Encounter for therapeutic drug level monitoring (principal); Z79.01 Long term (current) use of anticoagulants; I48.91 Unspecified atrial fibrillation
CPT/HCPCS: 36415; 85610

== ENCOUNTER → 2021-10-02 14:34 | Outpatient (CLI) | payer MEDICARE, MEDICAID, SELFPAY ==
[2021-10-02 15:34] LABS: INR 1.49 (0.9-1.1); Prothrombin Time 16.3 seconds (10.1-12.5)
== END ==
PROVIDERS: Internal Medicine
DX: Z51.81 Encounter for therapeutic drug level monitoring (principal); Z79.01 Long term (current) use of anticoagulants; I48.91 Unspecified atrial fibrillation
CPT/HCPCS: 36415; 85610

== ENCOUNTER → 2021-10-09 15:10 | Outpatient (CLI) | payer MEDICARE, MEDICAID, SELFPAY ==
[2021-10-09 15:46] LABS: INR 3.21 (0.9-1.1); Prothrombin Time 33.3 seconds (10.1-12.5)
[2021-10-09 17:06] LABS: Chol/HDL Ratio 4.2 (1-3.5); Cholesterol 135 mg/dl (140-200); HDL Cholesterol 32 mg/dl (40-60); Triglycerides 92 mg/dl (30-150); VLDL Cholesterol 18 mg/dL (0-40)
[2021-10-09 17:17] LABS: Direct LDL Cholesterol 71.39 mg/dL (100-129)
[2021-10-09 17:37] LABS: Thyroid Stimulating Hormone 4.27 uIU/mL (0.465-4.68)
== END ==
PROVIDERS: PCP Internal Medicine; Visit Provider Internal Medicine
DX: I50.32 Chronic diastolic (congestive) heart failure (principal); I11.0 Hypertensive heart disease with heart failure; E03.9 Hypothyroidism, unspecified; N19 Unspecified kidney failure
CPT/HCPCS: 36415; 80061; 84443; 85610

== ENCOUNTER → 2021-10-23 14:27 | Outpatient (CLI) | payer MEDICARE, MEDICAID, SELFPAY ==
[2021-10-23 15:30] LABS: INR 2.69 (0.9-1.1); Prothrombin Time 28.2 seconds (10.1-12.5)
== END ==
PROVIDERS: PCP Internal Medicine; Visit Provider Internal Medicine
DX: Z51.81 Encounter for therapeutic drug level monitoring (principal); Z79.01 Long term (current) use of anticoagulants; I48.91 Unspecified atrial fibrillation
CPT/HCPCS: 36415; 85610

== ENCOUNTER → 2021-11-22 13:14 | Outpatient (CLI) | payer MEDICARE, MEDICAID, SELFPAY ==
[2021-11-22 14:11] LABS: INR 1.89 (0.9-1.1); Prothrombin Time 20.4 seconds (10.1-12.5)
[2021-11-22 14:31] LABS: Alanine Aminotransferase 22 U/L (12-78); Albumin Level 3.9 g/dl (3.5-5.0); Albumin/Globulin Ratio 1.3 (1.1-1.8); Alkaline Phosphatase 73 U/L (38-126); Anion Gap 12.4 mEq/L (5-15); Aspartate Amino Transferase 29 U/L (14-36); Bilirubin,Total 0.5 mg/dl (0.2-1.3); Blood Urea Nitrogen 24 mg/dl (7-17); Calcium 9.5 mg/dl (8.4-10.2); Carbon Dioxide 28 mmol/L (22.0-30.0); Chloride 105 mmol/L (98-107); Estimated Glomerular Filt Rate 43 ml/min (>60); GFR (African American) 52 ML/MIN (>60); Globulin 2.9 g/dL (1.3-3.2); Glucose 124 mg/dl (74-100); Potassium 4.4 mmoL/L (3.5-5.1); Sodium 141 mmol/L (136-145); Total Protein,Serum 6.8 g/dl (6.3-8.2)
[2021-11-22 14:47] LABS: Free T4 (Free Thyroxine) 1.19 ng/dl (0.78-2.19)
[2021-11-22 16:00] LABS: Hemoglobin A1C 5.5 % (4.0-6.0)
== END ==
PROVIDERS: PCP Internal Medicine; Visit Provider Internal Medicine
DX: I48.0 Paroxysmal atrial fibrillation (principal); I87.2 Venous insufficiency (chronic) (peripheral); N18.30 Chronic kidney disease, stage 3 unspecified; I11.0 Hypertensive heart disease with heart failure; I50.22 Chronic systolic (congestive) heart failure; Z51.81 Encounter for therapeutic drug level monitoring; Z79.01 Long term (current) use of anticoagulants; Z79.899 Other long term (current) drug therapy
CPT/HCPCS: 36415; 80053; 83036; 84439; 85610

== ENCOUNTER → 2021-11-27 14:01 | Outpatient (CLI) | payer MEDICARE, MEDICAID, SELFPAY | PROVIDERS: PCP Internal Medicine; Visit Provider Internal Medicine | DX: I11.0 Hypertensive heart disease with heart failure (principal); I50.32 Chronic diastolic (congestive) heart failure; I48.0 Paroxysmal atrial fibrillation; R60.9 Edema, unspecified; I87.2 Venous insufficiency (chronic) (peripheral); N18.30 Chronic kidney disease, stage 3 unspecified | CPT/HCPCS: 36415; 82533 ==

== ENCOUNTER → 2021-12-14 13:16 | Outpatient (CLI) | payer MEDICARE, MEDICAID, SELFPAY ==
[2021-12-14 14:19] LABS: Basophils % 0.6 % (0.1-2.0); Eosinophils # 0.2 K/mm3 (0.0-0.4); Eosinophils % 2.7 % (0.1-12.0); Hematocrit 39.1 % (37.0-47.0); Hemoglobin 12.6 g/dL (12.2-16.2); Lymphocytes # 1.1 K/mm3 (0.7-4.5); Lymphocytes % 18.1 % (10-50); Mean Corpuscular HGB Conc 32.1 g/dL (31.8-35.4); Mean Corpuscular Hemoglobin 32.4 pg (27.0-31.2); Mean Corpuscular Volume 100.8 fl (81-99); Mean Platelet Volume 8.4 fl (7.4-10.4); Monocytes # 0.4 K/mm3 (0.1-1.0); Neutrophils # 4.5 K/mm3 (1.8-7.8); Neutrophils % 72.7 % (37.0-80.0); Platelet Count 206 K/mm3 (142-424); Red Blood Count 3.88 M/mm3 (4.20-5.40); Red Cell Distribution Width 13.4 % (11.5-17.5); White Blood Count 6.2 K/mm3 (4.8-10.8)
[2021-12-14 14:23] LABS: Prothrombin Time 25.4 seconds (10.1-12.5)
[2021-12-14 14:51] LABS: Blood Urea Nitrogen 19 mg/dl (7-17); Calcium 9.5 mg/dl (8.4-10.2); Carbon Dioxide 29 mmol/L (22.0-30.0); Chloride 106 mmol/L (98-107); Chol/HDL Ratio 4.9 (1-3.5); Cholesterol 171 mg/dl (140-200); Estimated Glomerular Filt Rate 43 ml/min (>60); GFR (African American) 52 ML/MIN (>60); Glucose 109 mg/dl (74-100); HDL Cholesterol 35 mg/dl (40-60); Magnesium 1.9 mg/dl (1.6-2.3); Sodium 139 mmol/L (136-145); Triglycerides 95 mg/dl (30-150); VLDL Cholesterol 19 mg/dL (0-40)
[2021-12-14 15:02] LABS: Direct LDL Cholesterol 97.13 mg/dL (100-129)
== END ==
PROVIDERS: Nurse Practitioner; PCP Internal Medicine; Visit Provider Internal Medicine
DX: I10 Essential (primary) hypertension (principal); Z51.81 Encounter for therapeutic drug level monitoring; Z79.01 Long term (current) use of anticoagulants; I48.91 Unspecified atrial fibrillation
CPT/HCPCS: 36415; 80048; 80061; 83735; 85025; 85610

== ENCOUNTER → 2022-01-17 14:39 | Outpatient (CLI) | payer MEDICARE, MEDICAID, SELFPAY ==
[2022-01-17 15:47] LABS: INR 3.82 (0.9-1.1); Prothrombin Time 39.1 seconds (10.1-12.5)
== END ==
PROVIDERS: PCP Internal Medicine; Visit Provider Internal Medicine
DX: Z51.81 Encounter for therapeutic drug level monitoring (principal); Z79.01 Long term (current) use of anticoagulants; I48.91 Unspecified atrial fibrillation
CPT/HCPCS: 36415; 85610

== ENCOUNTER → 2022-02-06 13:41 | Outpatient (CLI) | payer MEDICARE, MEDICAID, SELFPAY ==
--- NOTE | 2022-02-06 13:45 | MM_ITS ---
PROCEDURE INFORMATION: Exam: MG Bilateral Screening 3D Mammography Exam date and time: 02/06/2022 1:39 PM Age: 82 years old Clinical indication: Screening examination . Personal history of left breast cancer.Positive family history of breast cancer: Sister TECHNIQUE: Imaging protocol: Bilateral Screening tomosynthesis and 2D mammography including computer-aided detection (CAD) when performed. COMPARISON: 1. MG MM DIG SCREENING MAMM BI W/CAD 02/01/2021 10:02 AM 2. MG MM DIG SCREENING MAMM BI W/CAD 02/03/2020 10:31 AM FINDINGS: MAMMOGRAPHY: Breast composition: The breasts are heterogeneously dense, which may obscure small masses. Mass: None. Architectural distortion: Stable post operative architectural distortion in the left upper outer quadrant due to prior lumpectomy for carcinoma. Calcifications: No suspicious calcifications. Asymmetric density: None. Skin thickening: None. Axillary adenopathy: None. Other findings: . IMPRESSION: No mammographic evidence of malignancy. Annual screening is recommended unless otherwise clinically indicated. ASSESSMENT: BI-RADS Category 2: Benign
== END ==
PROVIDERS: PCP Internal Medicine; Visit Provider Internal Medicine
DX: Z12.31 Encounter for screening mammogram for malignant neoplasm of breast (principal)
CPT/HCPCS: 77063; 77067

== ENCOUNTER → 2022-02-13 13:44 | Outpatient (CLI) | payer MEDICARE, MEDICAID, SELFPAY ==
[2022-02-13 15:02] LABS: INR 2.92 (0.9-1.1); Prothrombin Time 29.7 seconds (10.1-12.5)
== END ==
PROVIDERS: PCP Internal Medicine; Visit Provider Internal Medicine
DX: Z51.81 Encounter for therapeutic drug level monitoring (principal); Z79.01 Long term (current) use of anticoagulants; I48.91 Unspecified atrial fibrillation
CPT/HCPCS: 36415; 85610

== ENCOUNTER 2022-02-13 14:00 | Outpatient (RCR) | payer MEDICARE, MEDICAID, SELFPAY | END 2022-02-13 15:00 | disposition home or self-care (01) | LOC: PT 14:00 | PROVIDERS: PCP Internal Medicine; Visit Provider Internal Medicine | DX: R60.0 Localized edema (principal); I89.0 Lymphedema, not elsewhere classified | CPT/HCPCS: 29580; 97140; 97163; 97164; 97597; 97760 ==

== ENCOUNTER → 2022-03-19 13:37 | Outpatient (CLI) | payer MEDICARE, MEDICAID, SELFPAY ==
[2022-03-19 14:43] LABS: INR 3.26 (0.9-1.1); Prothrombin Time 32.9 seconds (10.1-12.5)
[2022-03-19 15:18] LABS: Magnesium 1.8 mg/dl (1.6-2.3)
[2022-03-19 15:23] LABS: Hemoglobin A1C 5.5 % (4.0-6.0)
[2022-03-19 15:31] LABS: Free T4 (Free Thyroxine) 1.21 ng/dl (0.78-2.19)
== END ==
PROVIDERS: PCP Internal Medicine; Visit Provider Internal Medicine
DX: E03.9 Hypothyroidism, unspecified (principal); I48.0 Paroxysmal atrial fibrillation; I50.32 Chronic diastolic (congestive) heart failure; R60.9 Edema, unspecified; I11.0 Hypertensive heart disease with heart failure; Z79.899 Other long term (current) drug therapy
CPT/HCPCS: 36415; 82533; 83036; 83735; 84439; 85610

== ENCOUNTER → 2022-04-02 14:02 | Outpatient (CLI) | payer MEDICARE, MEDICAID, SELFPAY ==
[2022-04-02 14:37] LABS: INR 2.47 (0.9-1.1); Prothrombin Time 25.3 seconds (10.1-12.5)
== END ==
PROVIDERS: PCP Internal Medicine; Visit Provider Internal Medicine
DX: Z51.81 Encounter for therapeutic drug level monitoring (principal); Z79.01 Long term (current) use of anticoagulants; I48.91 Unspecified atrial fibrillation
CPT/HCPCS: 36415; 85610

== ENCOUNTER → 2022-05-01 13:42 | Outpatient (CLI) | payer MEDICARE, MEDICAID, SELFPAY ==
[2022-05-01 14:44] LABS: Prothrombin Time 18.8 seconds (10.1-12.5)
== END ==
PROVIDERS: PCP Internal Medicine; Visit Provider Internal Medicine
DX: Z51.81 Encounter for therapeutic drug level monitoring (principal); Z79.01 Long term (current) use of anticoagulants; I48.91 Unspecified atrial fibrillation
CPT/HCPCS: 36415; 85610

== ENCOUNTER → 2022-05-15 14:28 | Outpatient (CLI) | payer MEDICARE, MEDICAID, SELFPAY ==
[2022-05-15 17:10] LABS: Prothrombin Time 50.7 seconds (10.1-12.5)
[2022-05-15 17:11] LABS: INR 5.15 (0.9-1.1)
== END ==
PROVIDERS: PCP Internal Medicine; Visit Provider Internal Medicine
DX: Z51.81 Encounter for therapeutic drug level monitoring (principal); Z79.01 Long term (current) use of anticoagulants; I48.91 Unspecified atrial fibrillation
CPT/HCPCS: 36415; 85610

== ENCOUNTER → 2022-05-29 13:38 | Outpatient (CLI) | payer MEDICARE, MEDICAID, SELFPAY ==
[2022-05-29 14:17] LABS: INR 1.96 (0.9-1.1); Prothrombin Time 20.4 seconds (10.1-12.5)
== END ==
PROVIDERS: PCP Internal Medicine; Visit Provider Internal Medicine
DX: Z51.81 Encounter for therapeutic drug level monitoring (principal); Z79.01 Long term (current) use of anticoagulants; I48.91 Unspecified atrial fibrillation
CPT/HCPCS: 36415; 85610

== ENCOUNTER → 2022-06-05 17:09 | Outpatient (CLI) | payer MEDICARE, MEDICAID, SELFPAY | PROVIDERS: PCP Internal Medicine; Visit Provider Internal Medicine | DX: N39.0 Urinary tract infection, site not specified (principal); B96.29 Other Escherichia coli [E. coli] as the cause of diseases classified elsewhere | CPT/HCPCS: 87086; 87088; 87186 ==

== ENCOUNTER → 2022-06-12 13:22 | Outpatient (CLI) | payer MEDICARE, MEDICAID, SELFPAY ==
[2022-06-12 14:21] LABS: INR 2.98 (0.9-1.1); Prothrombin Time 30.3 seconds (10.1-12.5)
== END ==
PROVIDERS: PCP Internal Medicine; Visit Provider Internal Medicine
DX: Z51.81 Encounter for therapeutic drug level monitoring (principal); Z79.01 Long term (current) use of anticoagulants; I48.91 Unspecified atrial fibrillation
CPT/HCPCS: 36415; 85610

== ENCOUNTER → 2022-06-21 13:24 | Outpatient (CLI) | payer MEDICARE, MEDICAID, SELFPAY ==
--- NOTE | 2022-06-21 13:32 | CA_ITS ---
FINAL REPORT TECHNIQUE: Color Doppler, duplex Doppler and sauceda scale sonography of the bilateral neck arterial vasculature was performed. Velocities were measured in the carotid arteries. Stenosis evaluation based on the validated velocity criteria. CLINICAL HISTORY: DIZZINESS,HTN,OBESITY FINDINGS: The peak systolic velocity of the right common carotid artery is 121 cm/s. The peak systolic velocity of the right internal carotid artery is 55 cm/s and end diastolic velocity 14 cm/s. The ICA/CCA ratio is 0.5. A mild amount of plaque is present. The right external carotid artery is patent. The right vertebral artery is patent with antegrade flow. The peak systolic velocity of the left common carotid artery is 96 cm/s. The peak systolic velocity of the left internal carotid artery is 83 cm/s and end diastolic velocity 21 cm/s. The ICA/CCA ratio is 0.9. A mild amount of plaque is present. The left external carotid artery is patent.The left vertebral artery is patent with antegrade flow. IMPRESSION: Less than 50% bilateral carotid stenosis. Bilateral patent vertebral arteries with antegrade flow. If indicated, CTA or MRA could further evaluate. Reviewed, Interpreted and Dictated by Vanesa Dixon MD Transcribed by Amanda Villa Authenticated and [facility]
== END ==
PROVIDERS: PCP Internal Medicine; Visit Provider Internal Medicine
DX: I48.0 Paroxysmal atrial fibrillation (principal); I50.32 Chronic diastolic (congestive) heart failure; R09.89 Other specified symptoms and signs involving the circulatory and respiratory systems; R06.09 Other forms of dyspnea
CPT/HCPCS: 93880

== ENCOUNTER → 2022-07-16 14:46 | Outpatient (CLI) | payer MEDICARE, MEDICAID, SELFPAY ==
[2022-07-16 15:32] LABS: INR 1.61 (0.9-1.1); Prothrombin Time 16.9 seconds (10.1-12.5)
== END ==
PROVIDERS: PCP Internal Medicine; Visit Provider Internal Medicine
DX: Z51.81 Encounter for therapeutic drug level monitoring (principal); Z79.01 Long term (current) use of anticoagulants; I48.91 Unspecified atrial fibrillation
CPT/HCPCS: 36415; 85610

== ENCOUNTER → 2022-08-15 13:05 | Outpatient (CLI) | payer MEDICARE, MEDICAID, SELFPAY ==
[2022-08-15 14:43] LABS: INR 1.77 (0.9-1.1); Prothrombin Time 18.5 seconds (10.1-12.5)
[2022-08-15 15:12] LABS: 25-OH Vitamin D, Total 39.6 ng/mL (30-100)
[2022-08-15 15:46] LABS: Vitamin B12 477 pg/mL (239-931)
== END ==
PROVIDERS: PCP Internal Medicine; Visit Provider Internal Medicine
DX: R53.83 Other fatigue (principal); E56.9 Vitamin deficiency, unspecified; I48.91 Unspecified atrial fibrillation; Z51.81 Encounter for therapeutic drug level monitoring; Z79.01 Long term (current) use of anticoagulants
CPT/HCPCS: 36415; 82306; 82607; 85610

== ENCOUNTER → 2022-08-29 13:30 | Outpatient (CLI) | payer MEDICARE, MEDICAID, SELFPAY ==
[2022-08-29 14:05] LABS: INR 2.65 (0.9-1.1); Prothrombin Time 27.1 seconds (10.1-12.5)
== END ==
PROVIDERS: PCP Internal Medicine; Visit Provider Internal Medicine
DX: Z51.81 Encounter for therapeutic drug level monitoring (principal); Z79.01 Long term (current) use of anticoagulants; I48.91 Unspecified atrial fibrillation
CPT/HCPCS: 36415; 85610

== ENCOUNTER → 2022-10-02 14:23 | Outpatient (CLI) | payer MEDICARE, MEDICAID, SELFPAY ==
[2022-10-02 15:49] LABS: INR 2.06 (0.9-1.1); Prothrombin Time 21.4 seconds (10.1-12.5)
[2022-10-02 15:55] LABS: Basophils % 0.3 % (0.1-2.0); Eosinophils # 0.2 K/mm3 (0.0-0.4); Eosinophils % 3.3 % (0.1-12.0); Hematocrit 38.7 % (37.0-47.0); Hemoglobin 12.2 g/dL (12.2-16.2); Lymphocytes # 1.2 K/mm3 (0.7-4.5); Lymphocytes % 19.7 % (10-50); Mean Corpuscular HGB Conc 31.4 g/dL (31.8-35.4); Mean Corpuscular Hemoglobin 31.3 pg (27.0-31.2); Mean Corpuscular Volume 99.5 fl (81-99); Mean Platelet Volume 8.7 fl (7.4-10.4); Monocytes # 0.4 K/mm3 (0.1-1.0); Monocytes % 6.7 % (1.7-9.3); Neutrophils # 4.3 K/mm3 (1.8-7.8); Neutrophils % 70.1 % (37.0-80.0); Platelet Count 201 K/mm3 (142-424); Red Blood Count 3.89 M/mm3 (4.20-5.40); Red Cell Distribution Width 14.3 % (11.5-17.5); White Blood Count 6.1 K/mm3 (4.8-10.8)
[2022-10-02 16:44] LABS: Alanine Aminotransferase 21 U/L (12-78); Albumin Level 3.8 g/dl (3.5-5.0); Albumin/Globulin Ratio 1.4 (1.1-1.8); Alkaline Phosphatase 99 U/L (38-126); Anion Gap 17.2 mEq/L (5-15); Aspartate Amino Transferase 33 U/L (14-36); Bilirubin,Total 0.3 mg/dl (0.2-1.3); Blood Urea Nitrogen 20 mg/dl (7-17); Calcium 9.3 mg/dl (8.4-10.2); Carbon Dioxide 27 mmol/L (22.0-30.0); Chloride 99 mmol/L (98-107); Chol/HDL Ratio 4.6 (1-3.5); Cholesterol 138 mg/dl (140-200); Estimated Glomerular Filt Rate 53 ml/min (>60); GFR (African American) 64 ML/MIN (>60); Globulin 2.8 g/dL (1.3-3.2); Glucose 103 mg/dl (74-100); HDL Cholesterol 30 mg/dl (40-60); Magnesium 1.9 mg/dl (1.6-2.3); Potassium 4.2 mmoL/L (3.5-5.1); Sodium 139 mmol/L (136-145); Total Protein,Serum 6.6 g/dl (6.3-8.2); Triglycerides 122 mg/dl (30-150); VLDL Cholesterol 24 mg/dL (0-40)
[2022-10-02 16:55] LABS: Direct LDL Cholesterol 74.98 mg/dL (100-129)
[2022-10-02 17:16] LABS: Thyroid Stimulating Hormone 4.93 uIU/mL (0.465-4.68)
== END ==
PROVIDERS: PCP Internal Medicine; Visit Provider Internal Medicine
DX: I50.32 Chronic diastolic (congestive) heart failure (principal); I87.2 Venous insufficiency (chronic) (peripheral); E03.9 Hypothyroidism, unspecified; I48.0 Paroxysmal atrial fibrillation; I10 Essential (primary) hypertension; R60.9 Edema, unspecified; E78.5 Hyperlipidemia, unspecified
CPT/HCPCS: 36415; 80053; 80061; 83735; 84443; 85025; 85610

== ENCOUNTER → 2022-11-01 15:16 | Outpatient (CLI) | payer MEDICARE, MEDICAID, SELFPAY ==
[2022-11-01 16:25] LABS: INR 1.82 (0.9-1.1)
== END ==
PROVIDERS: PCP Internal Medicine; Visit Provider Internal Medicine
DX: Z51.81 Encounter for therapeutic drug level monitoring (principal); Z79.01 Long term (current) use of anticoagulants; I48.91 Unspecified atrial fibrillation
CPT/HCPCS: 36415; 85610

== ENCOUNTER 2022-11-12 15:28 | Emergency (ER) | payer MEDICARE, MEDICAID, SELFPAY ==
[2022-11-12] VITALS (9 sets, daily range): BP systolic 121–175; BP diastolic 39–84; PULSE 56–64; RESP 19–20; TEMP 36.7–36.8; O2SAT 95–98; BMI 42.5
[2022-11-12 15:55] LABS: Basophils % 0.5 % (0.1-2.0); Eosinophils # 0.2 K/mm3 (0.0-0.4); Eosinophils % 2.7 % (0.1-12.0); Hematocrit 39.7 % (37.0-47.0); Hemoglobin 12.5 g/dL (12.2-16.2); Lymphocytes # 1.8 K/mm3 (0.7-4.5); Lymphocytes % 24.4 % (10-50); Mean Corpuscular HGB Conc 31.4 g/dL (31.8-35.4); Mean Corpuscular Hemoglobin 30.9 pg (27.0-31.2); Mean Corpuscular Volume 98.4 fl (81-99); Mean Platelet Volume 8.8 fl (7.4-10.4); Monocytes # 0.5 K/mm3 (0.1-1.0); Monocytes % 6.6 % (1.7-9.3); Neutrophils # 4.9 K/mm3 (1.8-7.8); Neutrophils % 65.7 % (37.0-80.0); Platelet Count 201 K/mm3 (142-424); Red Blood Count 4.03 M/mm3 (4.20-5.40); Red Cell Distribution Width 14.7 % (11.5-17.5); White Blood Count 7.4 K/mm3 (4.8-10.8)
[2022-11-12 16:01] LABS: Chloride 104 mmol/L (98-107); Potassium 4.1 mmoL/L (3.5-5.1); Sodium 141 mmol/L (136-145)
[2022-11-12 16:03] LABS: Alanine Aminotransferase 26 U/L (12-78); Amylase 73 U/L (30-110); Aspartate Amino Transferase 36 U/L (14-36); Blood Urea Nitrogen 21 mg/dl (7-17); Creatinine Clearance Estimated 36 mL/min (50-200); Estimated Glomerular Filt Rate 43 ml/min (>60); GFR (African American) 52 ML/MIN (>60)
[2022-11-12 16:04] LABS: Albumin Level 3.9 g/dl (3.5-5.0); Albumin/Globulin Ratio 1.1 (1.1-1.8); Alkaline Phosphatase 87 U/L (38-126); Anion Gap 17.1 mEq/L (5-15); Bilirubin,Total 0.4 mg/dl (0.2-1.3); Calcium 9.4 mg/dl (8.4-10.2); Carbon Dioxide 24 mmol/L (22.0-30.0); Globulin 3.4 g/dL (1.3-3.2); Glucose 120 mg/dl (74-100); Lipase 144 U/L (23-300); Total Protein,Serum 7.3 g/dl (6.3-8.2)
[2022-11-12 16:05] LABS: Lactic Acid 3.1 mmol/L (0.7-2.1)
[2022-11-12 16:07] LABS: Activated Partial Thrombo Time 52.9 seconds (22.8-30.6); INR 4.58 (0.9-1.1)
[2022-11-12 16:10] LABS: Microscopic, Urine URINE MICROSCOPIC (MICROSCOPIC)
[2022-11-12 16:12] LABS: Prothrombin Time 45.4 seconds (10.1-12.5)
--- NOTE | 2022-11-12 16:15 | CT_ITS ---
PROCEDURE INFORMATION: Exam: CT Abdomen And Pelvis With Contrast Exam date and time: 11/12/2022 5:13 PM Age: 82 years old Clinical indication: Prior surgery; Surgery date: 6+ months; Surgery type: Hysterectomy, cholecystectomy, appendectomy, urinary stent in bladder, abdominal aortic stent; Patient HX: Bloody stool just lighter captain, pain w bowel movement; Additional info: Brbpr TECHNIQUE: Imaging protocol: Computed tomography of the abdomen and pelvis with contrast. Radiation optimization: All CT scans at this facility use at least one of these dose optimization techniques: automated exposure control; mA and/or kV adjustment per patient size (includes targeted exams where dose is matched to clinical indication); or iterative reconstruction. Contrast material: ISOVUE; Contrast volume: 100 ml; Contrast route: IV; REPORTING DATA: Count of CT and Cardiac NM exams in prior 12 months: This patient has received 0 known CTs and 0 known cardiac nuclear medicine studies in the 12 months prior to the current study. COMPARISON: CR XR CHEST 2V 04/30/2021 1:56 PM FINDINGS: Liver: Heterogeneous liver. Gallbladder and bile ducts: Surgically absent gallbladder Pancreas: Normal. No ductal dilation. Spleen: Normal. No splenomegaly. Adrenal glands: Normal. No mass. 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 Stomach and bowel: Moderate colonic stool burden. Stool in rectal vault. Nonobstructive bowel gas pattern. No conspicuous rectal wall thickening, perirectal fat stranding or fluid collection. Appendix: No evidence of appendicitis. Intraperitoneal space: Unremarkable. No free air. No significant fluid collection. Vasculature: Inferior vena cava filter grossly in place. Atherosclerotic calcification of aortoiliac arteries. Lymph nodes: Unremarkable. No enlarged lymph nodes. Urinary bladder: Unremarkable as visualized. Reproductive: Unremarkable as visualized. Bones/joints: Degenerative changes at multiple levels of thoracolumbar spine. Soft tissues: Unremarkable. IMPRESSION: 1. 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 2. Stool in rectal vault. Otherwise visualized rectum grossly unremarkable. 3. Inferior vena cava filter grossly in place. COMMENTS: For patients with an IVC filter, recommend assessment for a management plan for the patient's IVC filter. If there is no established management plan, recommend referral to an interventional clinician on a nonemergent basis for evaluation.
--- NOTE | 2022-11-12 16:17 | HMH.EDGENADL ---
Discharge Plan Disposition Patient Disposition: Home, Self-Care Condition: Fair Chief Complaint: Abdominal Pain Prescriptions Prescriptions: No Action torsemide 20 mg tablet 40 mg PO DAILY topiramate 50 mg tablet 50 mg PO DAILY 90 Days levothyroxine 88 mcg tablet 88 mcg PO DAILY 90 Days warfarin 4 mg tablet 5 mg PO WEEKLY 90 Days Rx Instructions: takes Lvd-Lqy-Kvx-Fri-Friday anastrozole 1 mg tablet 1 mg PO DAILY 90 Days cholecalciferol (vitamin D3) 1,000 unit capsule 1,000 unit PO ONCE warfarin 3 MG tablet 3 mg PO WEEKLY Rx Instructions: takesn Friday- docusate sodium 100 MG capsule 100 mg PO DAILY alendronate 10 mg tablet 70 mg PO WEEKLY enoxaparin 40 mg/0.4 mL syringe 120 mg SQ DAILY PRN (Reason: Blood thinner) Label Comments: bridge for procedure losartan 50 mg tablet See Rx Instructions .ROUTE .COMPLEX Rx Instructions: TAKE 1 TABLET EVERY DAY metoprolol succinate 50 mg tablet extended release 24 hr See Rx Instructions .ROUTE .COMPLEX Rx Instructions: TAKE 1 TABLET EVERY DAY spironolactone 25 mg tablet 25 mg PO DAILY Referrals Follow up/Referrals: Jose Bernal MD [Primary Care Provider] - See instructions Activity Restrictions/Add. Instructions Additional Instructions/Restrictions: Hold your Coumadin for the next 2 days follow-up with your doctor in 2 days Clinical Impressions Clinical Impression: Warfarin toxicity, Hematochezia due to medication Instructions Patient Instructions: Gastrointestinal Bleeding Discharge ED Provider: Oscar Parmar General Adult HPI General Chief complaint: Abdominal Pain Stated complaint: abd pain, bloody stool Time Seen by Provider: 11/12/22 17:56 Mode of Arrival: Ambulatory Source of Information: Patient Limitations: No Limitations Description of Symptoms (Recalled from ER Triage Doc. by RN): 82 F presents from home with her home health aid with c/o rectal bleeding that began this AM while straining for a BM. She reports rectal pain, lower abdominal pain, and she does take blood thinner daily. Patient denies nausea, vomiting, fever, chills, dysuria. History of Present Illness HPI narrative: This is an 82-year-old female who is taking warfarin for atrial fibrillation who presents to the emergency room with an episode of bright red blood per rectum. According to her aide she has had several episodes in the recent past melanotic stool. No abdominal pain no nausea vomiting no fevers or chills no hematuria. Related Data Home Medications Medication Instructions Recorded Confirmed anastrozole 1 mg tablet 1 mg PO DAILY chemotherapy 90 days 12/30/17 11/12/22 cholecalciferol (vitamin D3) 25 1,000 unit PO ONCE Supplement 12/30/17 11/12/22 mcg (1,000 unit) capsule levothyroxine 88 mcg tablet 88 mcg PO DAILY thyroid 90 days 12/30/17 11/12/22 topiramate 50 mg tablet 50 mg PO DAILY migraines 90 days 12/30/17 11/12/22 warfarin 4 mg tablet 5 mg PO WEEKLY Blood thinner 90 12/30/17 11/12/22 days warfarin 3 mg tablet 3 mg PO WEEKLY Blood thinner 10/27/19 11/12/22 docusate sodium 100 mg capsule 100 mg PO DAILY constipation' 12/07/19 11/12/22 alendronate 10 mg tablet 70 mg PO WEEKLY bones 02/15/20 11/12/22 enoxaparin 40 mg/0.4 mL 120 mg SQ DAILY PRN Blood thinner 03/09/21 11/12/22 subcutaneous syringe torsemide 20 mg tablet 40 mg PO DAILY swelling 04/30/21 11/12/22 losartan 50 mg tablet See Rx Instructions .Route 11/12/22 11/12/22 .COMPLEX High blood pressure metoprolol succinate 50 mg See Rx Instructions .Route 11/12/22 11/12/22 tablet,extended release 24 hr .COMPLEX Heart rhythm spironolactone 25 mg tablet 25 mg PO DAILY Fluid 11/12/22 11/12/22 Allergies Allergy/AdvReac Type Severity Reaction Status Date / Time atropine [From ] Allergy Unknown Verified 06/14/22 14:28 hyoscyamine [From ] Allergy Unknown Veri
[2022-11-12 16:19] LABS: Appearance,Urine CLOUDY (Clear); Blood, Urine 3+ (Negative); Color,Urine DK YELLOW (Yellow); Glucose,Urine (UA) TRACE (Negative); Ketones,Urine TRACE (Negative); Leukocyte Esterase,Urine 2+ (Negative); Nitrate,Urine Negative (Negative); PH,Urine 5.5 (5.0-8.5); Protein,Urine 3+ (Negative); Specific Gravity, Urine >= 1.030 (1.005-1.030)
[2022-11-12 16:32] LABS: Bacteria,Urine 3+ /lpf; Bilirubin,Urine 1+ (Negative); WBC,Urine 20-50 #/hpf (0-3)
--- NOTE | 2022-11-12 18:35 | PC.NURSE ---
radiology states that scan is in lock status
[2022-11-12 19:52] LABS: Reflex Lactic Add Lactic Reflex
== END 2022-11-12 19:13 | disposition home or self-care (01) ==
PROVIDERS: Emergency Provider Emergency Medicine; PCP Internal Medicine
DX: T45.511A Poisoning by anticoagulants, accidental (unintentional), initial encounter (principal); K92.1 Melena; N39.0 Urinary tract infection, site not specified; R82.79 Other abnormal findings on microbiological examination of urine; R74.02 Elevation of levels of lactic acid dehydrogenase [LDH]; I48.91 Unspecified atrial fibrillation; Z79.01 Long term (current) use of anticoagulants
CPT/HCPCS: 74177; 80053; 81001; 82150; 83605; 83690; 85025; 85610; 85730; 87086; 96360; 99285; Q9967

== ENCOUNTER → 2022-11-15 15:37 | Outpatient (CLI) | payer MEDICARE, MEDICAID, SELFPAY ==
[2022-11-15 16:21] LABS: Basophils % 0.2 % (0.1-2.0); Eosinophils # 0.2 K/mm3 (0.0-0.4); Eosinophils % 1.7 % (0.1-12.0); Hematocrit 37.7 % (37.0-47.0); Hemoglobin 11.9 g/dL (12.2-16.2); Lymphocytes # 1.2 K/mm3 (0.7-4.5); Lymphocytes % 13.3 % (10-50); Mean Corpuscular HGB Conc 31.4 g/dL (31.8-35.4); Mean Corpuscular Hemoglobin 30.5 pg (27.0-31.2); Mean Corpuscular Volume 97.2 fl (81-99); Mean Platelet Volume 8.4 fl (7.4-10.4); Monocytes # 0.5 K/mm3 (0.1-1.0); Monocytes % 5.7 % (1.7-9.3); Neutrophils # 6.9 K/mm3 (1.8-7.8); Neutrophils % 79.1 % (37.0-80.0); Platelet Count 184 K/mm3 (142-424); Red Blood Count 3.88 M/mm3 (4.20-5.40); Red Cell Distribution Width 14.8 % (11.5-17.5); White Blood Count 8.7 K/mm3 (4.8-10.8)
[2022-11-15 16:34] LABS: INR 2.28 (0.9-1.1); Prothrombin Time 23.5 seconds (10.1-12.5)
== END ==
PROVIDERS: PCP Internal Medicine; Visit Provider Internal Medicine
DX: I48.0 Paroxysmal atrial fibrillation (principal); K62.5 Hemorrhage of anus and rectum; T45.511A Poisoning by anticoagulants, accidental (unintentional), initial encounter
CPT/HCPCS: 36415; 85025; 85610

== ENCOUNTER → 2022-11-18 14:20 | Outpatient (CLI) | payer MEDICARE, MEDICAID, SELFPAY ==
[2022-11-18 15:46] LABS: INR 1.51 (0.9-1.1); Prothrombin Time 15.9 seconds (10.1-12.5)
== END ==
PROVIDERS: PCP Internal Medicine; Visit Provider Internal Medicine
DX: Z51.81 Encounter for therapeutic drug level monitoring (principal); Z79.01 Long term (current) use of anticoagulants; I48.91 Unspecified atrial fibrillation
CPT/HCPCS: 36415; 85610

== ENCOUNTER → 2022-12-19 10:41 | Outpatient (CLI) | payer MEDICARE, MEDICAID, SELFPAY ==
--- NOTE | 2022-12-19 10:46 | CA_ITS ---
APPROVED REPORT EXAM: Comprehensive 2D, Doppler, and color-flow Echocardiogram Retinal Surgeon: Marie Recio RT(R) Ht: 5 ft 8 in Wt: 265lbs BSA: 2.30 BP: 152/70 mmHg Indications: BATRES, HTN, CM, abn EKG, pacemaker, AFIB, ARIN, CHF, BATRES, morbid obesity. 2D Dimensions LVOT 1.85 cm (M/F) 1.5-2.5 M-Mode Dimensions RVDd 2.56 cm (0.9-2.6) LA Diam 4.84 cm (1.9-4.0) LVDd 5.56 cm (3.5-5.7) Ao Diam 2.78 cm (2.0-3.7) LVDs 4.13 cm (3.5-5.7) IVSd 0.85 cm (0.6-1.1) PWd 0.90 cm (0.6-1.1) EF (Teich) 50.10% FS 25.70% EDV (Teich) 151.20 mL ESV (Teich) 75.50 mL Tricuspid Valve TR P. Velocity 253.00 cm/s RAP Estimate 10.00 mmHg RVSP 35.50 mmHg Left Ventricle The left ventricle is normal size. The left ventricular systolic function is normal. The left ventricular ejection fraction is within the normal range. There is normal left ventricular wall thickness. Regional wall motion abnormalities are difficult to estimate due to technically difficult study LVEF is 55%. Right Ventricle The right ventricle is mildly dilated. The right ventricular systolic function is normal. Atria Left atrium is mildly dilated. The right atrium size is normal. Aortic Valve The aortic valve leaflets are mildly thickened. There is no aortic valvular stenosis. No aortic regurgitation is present. Mitral Valve The mitral valve is normal in structure. Mild mitral regurgitation. Tricuspid Valve The tricuspid valve leaflets are thin and pliable. Mild tricuspid regurgitation. RVSP = 25 - 30 mmHg Pulmonic Valve The pulmonary valve is normal in structure. Trace pulmonic regurgitation. Great Vessels The aortic root is normal in size. IVC is normal in size and collapses >50% with inspiration. Pericardium There is no pericardial effusion. Other Information Technically limited study due to difficult accoustic windows. Conclusion Normal biventricular systolic function. Mildly dilated RV. Mild TR and MR. Electronically signed by : Lisa Johnson, 12/20/2022 10:45:51
== END ==
PROVIDERS: PCP Internal Medicine; Visit Provider Internal Medicine
DX: G47.33 Obstructive sleep apnea (adult) (pediatric) (principal); I42.8 Other cardiomyopathies; I48.91 Unspecified atrial fibrillation; I50.30 Unspecified diastolic (congestive) heart failure; R94.31 Abnormal electrocardiogram [ECG] [EKG]; Z86.711 Personal history of pulmonary embolism; Z95.0 Presence of cardiac pacemaker; R06.09 Other forms of dyspnea; I11.0 Hypertensive heart disease with heart failure
CPT/HCPCS: 93306

== ENCOUNTER → 2022-12-27 15:17 | Outpatient (CLI) | payer MEDICARE, MEDICAID, SELFPAY ==
[2022-12-27 16:44] LABS: Thyroid Stimulating Hormone 2.22 uIU/mL (0.465-4.68)
== END ==
PROVIDERS: PCP Internal Medicine; Visit Provider Internal Medicine
DX: E03.9 Hypothyroidism, unspecified (principal)
CPT/HCPCS: 84443

== ENCOUNTER → 2023-02-11 12:58 | Outpatient (CLI) | payer MEDICARE, MEDICAID, SELFPAY ==
--- NOTE | 2023-02-11 13:01 | CA_ITS ---
FINAL REPORT TECHNIQUE: Arterial duplex Doppler evaluation of the right lower extremity with spectral analysis. CLINICAL HISTORY: Edema RLE, pain in RLE COMPARISON: None FINDINGS: The exam was technically difficult due to patient's size. Right lower extremity, flow velocities (cm per second): Common femoral artery: 159.3 Proximal SFA: 175.4 Distal SFA: 104 Popliteal: 86.5 Anterior tibial artery: 75.4 Posterior tibial artery: 79 The ankle-brachial index is 0.87, which indicates peripheral vascular disease in the leg. IMPRESSION: No levels of stenosis or occlusion are identified visually. However the depressed GAVIN suggests mild to moderate arterial occlusive disease, and the waveform in the popliteal arteries and distal vessels are either monophasic or biphasic, also suggestive of distal peripheral arterial vascular disease. Reviewed, Interpreted and Dictated by Magdiel Parish MD Transcribed by Nay Vicente Authenticated and [facility]
--- NOTE | 2023-02-11 13:01 | CA_ITS ---
FINAL REPORT TECHNIQUE: Multiple transverse and longitudinal images were performed of the right femoral-popliteal deep venous system with augmentation and compression maneuvers. CLINICAL HISTORY: edema RLE, pain in RLE, obesity, lymph edema FINDINGS: Right lower extremity duplex ultrasound demonstrates normal flow in the deep venous system. There is no abnormal echogenicity to suggest thrombus. There is normal compression and augmentation. IMPRESSION: No evidence of right DVT. Reviewed, Interpreted and Dictated by Magdiel Parish MD Transcribed by Sil Powers Authenticated and [facility]
== END ==
PROVIDERS: PCP Internal Medicine; Visit Provider Internal Medicine
DX: I73.9 Peripheral vascular disease, unspecified (principal); M79.604 Pain in right leg; R60.9 Edema, unspecified; Z86.711 Personal history of pulmonary embolism
CPT/HCPCS: 93926; 93971

== ENCOUNTER → 2023-02-13 12:53 | Outpatient (POV) | payer MEDICARE, MEDICAID, SELFPAY | PROVIDERS: Visit Provider Specialist/Technologist | DX: Z00.00 Encounter for general adult medical examination without abnormal findings (principal) ==

== ENCOUNTER → 2023-02-20 09:21 | Outpatient (CLI) | payer MEDICARE, MEDICAID, SELFPAY ==
--- NOTE | 2023-02-20 09:24 | MM_ITS ---
PROCEDURE INFORMATION: Exam: MG Bilateral Screening 3D Mammography Exam date and time: 02/20/2023 9:48 AM Age: 83 years old Clinical indication: Screening examination. History of left breast cancer.Positive family history of breast cancer TECHNIQUE: Imaging protocol: Bilateral Screening tomosynthesis and 2D mammography including computer-aided detection (CAD) when performed. COMPARISON: MG MM DIG SCREENING MAMM BI W/CAD 02/06/2022 1:45 PM FINDINGS: MAMMOGRAPHY: Breast composition: The breasts are heterogeneously dense, which may obscure small masses. Mass: None. Architectural distortion: Stable post operative architectural distortion in the left upper outer quadrant due to prior lumpectomy for carcinoma. Calcifications: No suspicious calcifications. Asymmetric density: None. Skin thickening: None. Axillary adenopathy: None. IMPRESSION: No mammographic evidence of malignancy. Annual screening is recommended unless otherwise clinically indicated. ASSESSMENT: BI-RADS Category 2: Benign
--- NOTE | 2023-02-20 09:25 | XR_ITS ---
FINAL REPORT TECHNIQUE: Bone densitometry calculations of the lumbar spine and left hip were obtained. CLINICAL HISTORY: POST MENOPAUSAL COMPARISON: 02/01/2021 FINDINGS: Using L1-4, the bone mineral density of the spine is 1.261 g/cm2, corresponding to T-score of 1.9 and a Z score of four-point. This is within the range of normal. Using the left hip, the bone mineral density of the femoral neck is 0.679 g/cm2, corresponding to a T-score of -1.5 and a Z-score of 0.9 this is within the range of osteopenia. Using the right hip, the bone mineral density of the femoral neck is 0.562 g/cm2, corresponding to a T-score of -2.6 and a Z-score of -0.1. This is within the range of osteoporosis. NOTE: T-score: Standard deviation compared with peak bone mass of young adult mean. *Following the recommendations of the International Society of Bone densitometry, classification of hip BMD is based on the lower of two T-scores; total hip or femoral neck. IMPRESSION: 1. Bone mineral density of the lumbar spine within the range of normal. 2. Bone mineral density of the left femoral neck within the range of osteopenia. 3. Bone mineral density of the right femoral neck within the range of osteoporosis. Reviewed, Interpreted and Dictated by Mary Abreu MD Transcribed by Danni Giraldo Authenticated and . [facility]
== END ==
PROVIDERS: PCP Internal Medicine; Visit Provider Internal Medicine
DX: Z12.31 Encounter for screening mammogram for malignant neoplasm of breast (principal); Z78.0 Asymptomatic menopausal state
CPT/HCPCS: 77063; 77067; 77080

== ENCOUNTER → 2023-03-19 07:59 | Day surgery (SDC) | payer MEDICARE, MEDICAID, SELFPAY ==
[2023-03-19 08:05] VITALS: BMI 42.5
== END ==
PROVIDERS: PCP Internal Medicine; Visit Provider Internal Medicine
DX: Z53.09 Procedure and treatment not carried out because of other contraindication (principal)

== ENCOUNTER 2023-03-26 08:54 | Day surgery (SDC) | payer MEDICARE, MEDICAID, SELFPAY ==
[2023-03-26] VITALS (16 sets, daily range): BP systolic 143–233; BP diastolic 26–125; PULSE 58–61; RESP 16–18; TEMP 37; O2SAT 95–99; BMI 42.5
--- NOTE | 2023-03-26 07:12 | IR_ITS ---
APPROVED REPORT Patient Location: Outpatient Temperature Regulator: GEOVANNI No RT (R) PROCEDURES Catheter placed in the abdominal aorta Abdominal aortography Repositioning of the catheter in the abdominal aorta Bilateral iliofemoral runoff INDICATION Mando class III claudication, Abnormal GAVIN Informed consent was obtained prior to the procedure. COMPLICATIONS None Estimated Blood Loss: Less than 10 mls TECHNIQUE 1% lidocaine used to anesthetize the left femoral groin. The left femoral artery was accessed via the Seldinger technique. Under fluoroscopic guidance a pigtail catheter was placed in the distal abdominal aorta were distal abdominal aortography was performed. The catheter was then repositioned and bilateral iliofemoral runoff was performed. Following this the apparatus was removed the patient was transferred to the postop holding in stable condition for sheath removal ANGIOGRAPHIC RESULTS Distal abdominal aorta is normal Bilateral common internal and external iliac arteries are widely patent Bilateral common femoral arteries are widely patent Bilateral profunda femoris arteries are widely patent Bilateral superficial femoral arteries are widely patent Bilateral popliteal arteries are widely patent The right leg infrageniculate vasculature comprises of a patent proximal anterior tibialis artery and peroneal artery. The posterior tibialis artery appears to be occluded in its proximal mid segment. Distally the posterior tibialis artery reconstitutes via collaterals from the peroneal artery and then supplies the the right foot The left infrageniculate vasculature consists of approximately patent anterior and posterior tibialis arteries and peroneal arteries. There is slow flow down all 3 vessels but there appears to be two-vessel runoff into the left foot from the posterior tibialis artery and the peroneal artery IMPRESSION Peripheral artery disease as described above which the disease is confined to the infrageniculate level. PLAN 1. Medical management. There is nothing percutaneous nor surgical which would be appropriate to revascularize the bilateral infrageniculate disease. 2. Physical therapy with risk factor modification Electronically signed by : Bashir Mckay MD 03/26/2023 11:59:51
[2023-03-26 09:33] LABS: Basophils % 0.3 % (0.1-2.0); Eosinophils # 0.2 K/mm3 (0.0-0.4); Eosinophils % 2.5 % (0.1-12.0); Hematocrit 39.1 % (37.0-47.0); Hemoglobin 13.1 g/dL (12.2-16.2); Lymphocytes # 1.4 K/mm3 (0.7-4.5); Lymphocytes % 17.3 % (10-50); Mean Corpuscular HGB Conc 33.5 g/dL (31.8-35.4); Mean Corpuscular Volume 101.2 fl (81-99); Mean Platelet Volume 8.6 fl (7.4-10.4); Monocytes # 0.5 K/mm3 (0.1-1.0); Monocytes % 6.2 % (1.7-9.3); Neutrophils # 5.8 K/mm3 (1.8-7.8); Neutrophils % 73.6 % (37.0-80.0); Platelet Count 195 K/mm3 (142-424); Red Blood Count 3.87 M/mm3 (4.20-5.40); Red Cell Distribution Width 13.9 % (11.5-17.5); White Blood Count 7.9 K/mm3 (4.8-10.8)
[2023-03-26 09:42] LABS: Anion Gap 16.9 mEq/L (5-15); Blood Urea Nitrogen 21 mg/dl (7-17); Calcium 9.7 mg/dl (8.4-10.2); Carbon Dioxide 26 mmol/L (22.0-30.0); Chloride 100 mmol/L (98-107); Creatinine Clearance Estimated 36 mL/min (50-200); Estimated Glomerular Filt Rate 43 ml/min (>60); GFR (African American) 52 ML/MIN (>60); Glucose 131 mg/dl (74-100); Potassium 3.9 mmoL/L (3.5-5.1); Sodium 139 mmol/L (136-145)
== END 2023-03-26 15:22 | disposition home or self-care (01) ==
PROVIDERS: PCP Internal Medicine; Visit Provider Internal Medicine
DX: G47.33 Obstructive sleep apnea (adult) (pediatric) (principal); I11.0 Hypertensive heart disease with heart failure; I42.9 Cardiomyopathy, unspecified; I48.91 Unspecified atrial fibrillation; I50.33 Acute on chronic diastolic (congestive) heart failure; M79.604 Pain in right leg; R06.00 Dyspnea, unspecified; R60.9 Edema, unspecified; R93.89 Abnormal findings on diagnostic imaging of other specified body structures; R94.31 Abnormal electrocardiogram [ECG] [EKG]; Z95.0 Presence of cardiac pacemaker; Z79.899 Other long term (current) drug therapy; I70.213 Atherosclerosis of native arteries of extremities with intermittent claudication, bilateral legs; I77.1 Stricture of artery
CPT/HCPCS: 36247; 36248; 75716; 80048; 85025; 99152; C1725; C1769; C1894; J1644; Q9966

== ENCOUNTER 2023-04-03 08:54 | Outpatient (CLI) | payer MEDICARE, MEDICAID, SELFPAY ==
[2023-04-03 10:09] VITALS: BMI 42.5
[2023-04-03 10:45] LABS: Albumin Level 4.7 g/dl (3.5-5.0)
[2023-04-03 11:22] VITALS: BP 128/50; PULSE 60; RESP 16; TEMP 36.8; O2SAT 98
[2023-04-03 11:45] VITALS: BP 128/54; PULSE 60; RESP 16; TEMP 36.8; O2SAT 99
== END 2023-04-03 12:00 | disposition home or self-care (01) ==
LOC: INF 08:56
PROVIDERS: PCP Internal Medicine; Visit Provider Internal Medicine
DX: M81.0 Age-related osteoporosis without current pathological fracture (principal)
CPT/HCPCS: 82040; 96374; J3489

== ENCOUNTER 2023-04-08 09:16 | Day surgery (SDC) | payer MEDICARE, MEDICAID, SELFPAY ==
[2023-04-08] VITALS (9 sets, daily range): BP systolic 111–152; BP diastolic 64–100; PULSE 60–86; RESP 15–18; TEMP 37; O2SAT 95–100; BMI 37.6
--- NOTE | 2023-04-08 07:06 | IR_ITS ---
APPROVED REPORT Patient Location: Outpatient Home Health Billing Specialist: GEOVANNI Erwin RT (R) PROCEDURES 1. Pocket Revision 2. Placement of left ventricular sensing pacing lead into the coronary sinus. 3. Placement of biventricular pacemaker generator with cardiac resynchronization therapy. INDICATION Wide QRS > 120 ms, Pacemaker induced cardiomyopathy, Worsening congestive heart failure [place] Heart Association class III-IV Informed consent was obtained prior to the procedure. COMPLICATIONS None Estimated Blood Loss: Less than 10 mls TECHNIQUE 1% lidocaine with epinephrine used to anesthetize the left anterior aspect of the chest. Scalpel was used to make the initial cutaneous incision and to dissect down into the fascia. The generator was removed from the existing pocket. Digital manipulation was required along with intermittent usage of scalpel in order to revise the pocket. The leads were removed from the old generator. The patient was then placed in Trendelenburg position and the subclavian vein was accessed 1 time via the Selinger technique. A 9.5 Thai sheath was placed under fluoroscopic guidance into the subclavian vein. The dilator was removed from the sheath. Under fluoroscopic guidance the coronary sinus was cannulated and confirmed with an injection of contrast. An 0.014 wire was then placed distally in the inferior posterior segment of the left ventricle via the coronary sinus and the left ventricular lead was advanced. After achieving excellent thresholds and interrogation numbers the sheath was then peeled away and the lead was then secured into place using silk suture. Ancef was used to flush the pocket and the 3 leads were attached to the [employer]-P generator. The generator was then secured into place by heavy silk suture. Monocryl was used to close the subcutaneous layers while saravanan were used to close the subcutaneous layers while saravanan were used to close the cutaneous layer. A pressure dressing was placed and the patient was transferred to the postop holding area in stable condition for postoperative care. INTERROGATION Generator Model number: Jen Martinez EDGAR, [id number] Generator Serial number: [id number] Atrial lead model number: 4470 Atrial lead serial number: [id number] Right Ventricular lead model number: 4457 Right Ventricular lead serial number: [id number] R-wave: 2.0mV Impedence: 360 ohms Threshold: 0.75V@0.4ms Left Ventricular lead model number: Cherie 86 cm, 1458Q Left Ventricular lead serial number: [id number] R-wave: Impedence: 840 ohms Threshold: 1.25V@1.0ms Pacing Parameters: Mode: VVI Base/Max Track: 70 ppm / 130 ppm No diaphragmatic stimulation at 10 volts. IMPRESSION 1. Successful pocket revision for biventricular pacemaker generator with cardiac resynchronization therapy. 2. Successful placement of left ventricular sensing pacing lead via the coronary sinus. 3. Successful permanent cardiac resynchronization therapy pacemaker device. PLAN 1. post op wound care, follow up office visit Electronically signed by : Bashir Mckay MD 04/14/2023 14:57:05
[2023-04-08 09:55] LABS: Basophils % 0.3 % (0.1-2.0); Eosinophils # 0.2 K/mm3 (0.0-0.4); Eosinophils % 2.3 % (0.1-12.0); Hematocrit 40.3 % (37.0-47.0); Hemoglobin 13.4 g/dL (12.2-16.2); Lymphocytes # 1.4 K/mm3 (0.7-4.5); Lymphocytes % 17.9 % (10-50); Mean Corpuscular HGB Conc 33.2 g/dL (31.8-35.4); Mean Corpuscular Hemoglobin 33.2 pg (27.0-31.2); Mean Platelet Volume 7.4 fl (7.4-10.4); Monocytes # 0.4 K/mm3 (0.1-1.0); Monocytes % 5.1 % (1.7-9.3); Neutrophils % 74.4 % (37.0-80.0); Platelet Count 232 K/mm3 (142-424); Red Blood Count 4.03 M/mm3 (4.20-5.40); Red Cell Distribution Width 13.6 % (11.5-17.5); White Blood Count 8.1 K/mm3 (4.8-10.8)
[2023-04-08 09:56] LABS: Chloride 100 mmol/L (98-107)
[2023-04-08 09:57] LABS: Potassium 3.7 mmoL/L (3.5-5.1); Sodium 138 mmol/L (136-145)
[2023-04-08 10:00] LABS: Anion Gap 13.7 mEq/L (5-15); Blood Urea Nitrogen 21 mg/dl (7-17); Carbon Dioxide 28 mmol/L (22.0-30.0); Creatinine Clearance Estimated 53 mL/min (50-200); Estimated Glomerular Filt Rate 33 ml/min (>60); GFR (African American) 40 ML/MIN (>60); Glucose 126 mg/dl (74-100)
--- NOTE | 2023-04-08 14:03 | XR_ITS ---
FINAL REPORT CLINICAL HISTORY: Confirm pacemaker/AID placement COMPARISON: 04/30/2021 FINDINGS: SINGLE-VIEW CHEST The heart size is normal. The mediastinum is normal. Left chest wall pacer is identified. There are overlying skin saravanan. There is mild bibasilar atelectasis. There is no pneumothorax. IMPRESSION: Mild bibasilar atelectasis. Pacemaker as above. Reviewed, Interpreted and Dictated by Magdiel Parish MD Transcribed by Sil Powers Authenticated and [facility]
== END 2023-04-08 15:38 | disposition home or self-care (01) ==
PROVIDERS: PCP Internal Medicine; Visit Provider Internal Medicine
DX: Z45.018 Encounter for adjustment and management of other part of cardiac pacemaker (principal); I48.20 Chronic atrial fibrillation, unspecified; I50.22 Chronic systolic (congestive) heart failure; D68.51 Activated protein C resistance; Z95.828 Presence of other vascular implants and grafts; I87.2 Venous insufficiency (chronic) (peripheral); Z79.01 Long term (current) use of anticoagulants; I42.9 Cardiomyopathy, unspecified; I11.0 Hypertensive heart disease with heart failure
CPT/HCPCS: 33225; 33229; 71045; 80048; 85025; 99152; 99153; C1713; C1769; C1894; C2621; J2704; Q9967

== ENCOUNTER 2023-07-16 10:25 | Outpatient (CLI) | payer MEDICARE, MEDICAID, SELFPAY ==
--- NOTE | 2023-07-16 10:35 | XR_ITS ---
FINAL REPORT TECHNIQUE: Chest PA & Lateral CLINICAL HISTORY: Pacemaker check. PATIENT STATES SHE FEELS LIKE IT STICKING OUT. COMPARISON: 04/08/2023 FINDINGS: 2 views of the chest were performed. The heart size is normal. The mediastinum is within normal limits. There is a biventricular pacemaker present, as seen on the prior film. There is no acute cardiopulmonary process. There are no pleural effusions. There is no pneumothorax. The bony thorax appears intact. IMPRESSION: No acute cardiopulmonary process. Reviewed, Interpreted and Dictated by Magdiel Parish MD Transcribed by Nay Vicente Authenticated and [facility]
== END 2023-07-16 23:59 ==
LOC: RAD 10:27
PROVIDERS: PCP Internal Medicine; Visit Provider Nurse Practitioner Family
DX: I48.91 Unspecified atrial fibrillation (principal); Z95.0 Presence of cardiac pacemaker
CPT/HCPCS: 71046

== ENCOUNTER 2023-09-16 14:03 | Outpatient (CLI) | payer MEDICARE, MEDICAID, SELFPAY ==
[2023-09-16 14:48] LABS: Basophils # 0.1 K/mm3 (0-0.2); Basophils % 1.1 % (0.1-2.0); Eosinophils # 0.2 K/mm3 (0.0-0.4); Eosinophils % 2.9 % (0.1-12.0); Hematocrit 39.4 % (37.0-47.0); Hemoglobin 12.2 g/dL (12.2-16.2); Lymphocytes % 15.9 % (10-50); Mean Corpuscular Hemoglobin 32.6 pg (27.0-31.2); Mean Corpuscular Volume 105.1 fl (81-99); Mean Platelet Volume 9.6 fl (7.4-10.4); Monocytes # 0.5 K/mm3 (0.1-1.0); Monocytes % 7.1 % (1.7-9.3); Neutrophils # 4.7 K/mm3 (1.8-7.8); Platelet Count 185 K/mm3 (142-424); Red Blood Count 3.75 M/mm3 (4.20-5.40); Red Cell Distribution Width 14.8 % (11.5-17.5); White Blood Count 6.4 K/mm3 (4.8-10.8)
[2023-09-16 15:05] LABS: Alanine Aminotransferase 18 U/L (12-78); Albumin/Globulin Ratio 1.4 (1.1-1.8); Alkaline Phosphatase 60 U/L (38-126); Aspartate Amino Transferase 28 U/L (14-36); Bilirubin,Total 0.7 mg/dl (0.2-1.3); Blood Urea Nitrogen 12 mg/dl (7-17); Calcium 9.7 mg/dl (8.4-10.2); Carbon Dioxide 29 mmol/L (22.0-30.0); Chloride 105 mmol/L (98-107); Chol/HDL Ratio 3.6 (1-3.5); Cholesterol 120 mg/dl (140-200); Estimated Glomerular Filt Rate 47 ml/min (>60); GFR (African American) 57 ML/MIN (>60); Globulin 2.8 g/dL (1.3-3.2); Glucose 97 mg/dl (74-100); HDL Cholesterol 33 mg/dl (40-60); Sodium 142 mmol/L (136-145); Total Protein,Serum 6.8 g/dl (6.3-8.2); Triglycerides 118 mg/dl (30-150); VLDL Cholesterol 24 mg/dL (0-40)
[2023-09-16 15:17] LABS: Direct LDL Cholesterol 60.32 mg/dL (100-129)
[2023-09-17 19:34] LABS: Vitamin B12 299 pg/mL (239-931)
[2023-09-17 19:37] LABS: Folate 8.86 ng/mL
== END 2023-09-16 23:59 | disposition home or self-care (01) ==
LOC: LAB.DROPOF 14:04
PROVIDERS: PCP Internal Medicine; Visit Provider Internal Medicine
DX: I50.32 Chronic diastolic (congestive) heart failure (principal); I48.91 Unspecified atrial fibrillation; I87.2 Venous insufficiency (chronic) (peripheral); I10 Essential (primary) hypertension; E03.9 Hypothyroidism, unspecified; J45.30 Mild persistent asthma, uncomplicated; Z85.3 Personal history of malignant neoplasm of breast
CPT/HCPCS: 80053; 80061; 82607; 82746; 84443; 85025

== ENCOUNTER 2023-09-23 09:36 | Outpatient (CLI) | payer MEDICARE, MEDICAID, SELFPAY | END 2023-09-23 23:59 | disposition home or self-care (01) | PROVIDERS: PCP Internal Medicine; Visit Provider Internal Medicine | DX: R05.9 Cough, unspecified (principal); R06.2 Wheezing | CPT/HCPCS: 94010 ==

== ENCOUNTER 2023-12-01 08:14 | Outpatient (CLI) | payer MEDICARE, MEDICAID, SELFPAY ==
[2023-12-01] MEDS: ALBUTEROL 0.083% 2.5 MG/3 ML NEB IH (08:58)
== END 2023-12-01 23:59 | disposition home or self-care (01) ==
LOC: RT 08:15
PROVIDERS: PCP Internal Medicine; Visit Provider Internal Medicine
DX: R06.00 Dyspnea, unspecified (principal); R06.2 Wheezing; I48.20 Chronic atrial fibrillation, unspecified
CPT/HCPCS: 94060; J7613

== ENCOUNTER 2024-03-03 10:02 | Outpatient (CLI) | payer MEDICARE, MEDICAID, SELFPAY ==
--- NOTE | 2024-03-03 10:02 | MM_ITS ---
PROCEDURE INFORMATION: Exam: MG Bilateral Screening 3D Mammography Exam date and time: 03/03/2024 9:50 AM Age: 84 years old Clinical indication: Screening mammogram TECHNIQUE: Imaging protocol: Bilateral Screening tomosynthesis and 2D mammography including computer-aided detection (CAD) when performed. COMPARISON: 1. MG MM DIG SCREENING MAMM BI W/CAD 02/20/2023 9:48 AM 2. MG MM DIG SCREENING MAMM BI W/CAD 02/06/2022 1:45 PM 3. MG MM DIG SCREENING MAMM BI W/CAD 02/01/2021 10:02 AM FINDINGS: MAMMOGRAPHY: Breast composition: Mass: None. Architectural distortion: Stable postoperative architectural distortion in the left upper outer quadrant. Calcifications: Stable benign-appearing calcifications are present. No new or suspicious cluster of microcalcifications have developed. Asymmetric density: No new or suspicious asymmetric density is present Skin thickening: None. Axillary adenopathy: None. Other findings: Left cardiac pacemaker IMPRESSION: No mammographic evidence of malignancy. Recommend annual screening mammography unless otherwise clinically indicated. ASSESSMENT: BI-RADS category 2: Benign.
[2024-03-03 10:46] VITALS: BMI 39.5
[2024-03-03 10:47] VITALS: BP 145/77; PULSE 62; RESP 20; TEMP 36.6; O2SAT 97
[2024-03-03] MEDS: ZOLEDRONIC ACID/MANNITOL-WATER 5 MG/100 ML PGGYBK.BTL 400 MG IV (10:48)
[2024-03-03] MEDS: SODIUM CHLORIDE 0.9% 50ML BAG 50 ML IV (11:03)
[2024-03-03] MEDS: SODIUM CHLORIDE 0.9% 10ML FLUSH SYRINGE 10 ML IV (11:04)
[2024-03-03 11:16] LABS: Albumin Level 4.2 g/dl (3.5-5.0)
[2024-03-03 11:19] LABS: Calcium 9.7 mg/dl (8.4-10.2); Creatinine Clearance Estimated 71 mL/min (50-200); Estimated Glomerular Filt Rate 47 ml/min (>60); GFR (African American) 57 ML/MIN (>60)
[2024-03-03 11:20] VITALS: BP 138/79; PULSE 59; RESP 20; O2SAT 98
== END 2024-03-03 11:20 | disposition home or self-care (01) ==
LOC: RAD 10:02
PROVIDERS: PCP Internal Medicine; Visit Provider Internal Medicine
DX: Z12.31 Encounter for screening mammogram for malignant neoplasm of breast (principal); M81.0 Age-related osteoporosis without current pathological fracture; Z79.899 Other long term (current) drug therapy
CPT/HCPCS: 77063; 77067; 82040; 82310; 82565; 96374; J3489

== ENCOUNTER 2024-03-21 05:57 | Observation (INO) | payer MEDICARE, MEDICAID, SELFPAY ==
[2024-03-21] VITALS (18 sets, daily range): BP systolic 96–130; BP diastolic 48–73; PULSE 67–80; RESP 18–20; TEMP 36.6–36.8; O2SAT 87–100; BMI 39.8; BMI 41.2
--- NOTE | 2024-03-21 05:59 | XR_ITS ---
PROCEDURE INFORMATION: Exam: XR Chest Exam date and time: 03/21/2024 6:10 AM Age: 84 years old Clinical indication: Pain; Chest pressure; Additional info: Cp TECHNIQUE: Imaging protocol: Radiologic exam of the chest. Views: 1 view. COMPARISON: CR XR CHEST 2V 07/16/2023 10:41 AM FINDINGS: Tubes, catheters and devices: Two lead right heart pacemaker. Lungs: Chronic interstitial changes. No acute process noted. Pleural spaces: Unremarkable. No pleural effusion. No pneumothorax. Heart/Mediastinum: Unremarkable. No cardiomegaly. Diaphragm: Elevation the right hemidiaphragm. Bones/joints: Unremarkable. IMPRESSION: Two lead right heart pacemaker. Elevation the right hemidiaphragm. Chronic interstitial changes. No acute process noted.
--- NOTE | 2024-03-21 06:02 | ECG_ITS ---
APPROVED REPORT Exam: Resting ECG HR:69 bpm ECG Measurements Heart Rate 69 AXES QRSd 138 QRS 269 QT 433 T 71 QTc 453 Conclusion ELECTRONIC VENTRICULAR PACEMAKER ABNORMAL RHYTHM ECG UNCONFIRMED REPORT Electronically signed by : SUMAN MARTELL, 03/22/2024 06:37:39
--- NOTE | 2024-03-21 06:11 | [facility].EDCP ---
Discharge Plan Disposition Patient Disposition: Admitted Chief Complaint: Chest Pain Prescriptions Prescriptions: No Action cefdinir 300 mg capsule 300 mg PO BID Qty: 30 1RF triamcinolone acetonide 0.1 % cream 1 applic topical TID PRN (Reason: Dermatitis on legs) Qty: 453.6 0RF albuterol sulfate 90 mcg/actuation HFA aerosol inhaler 2 puff inhalation Q6H PRN (Reason: shortness of breath or wheezing) Qty: 8.5 2RF ceftriaxone 500 mg recon soln 500 mg IM ONCE Qty: 1 0RF anastrozole 1 mg tablet See Rx Instructions .ROUTE .COMPLEX Qty: 90 1RF Dose Instruction: TAKE 1 TABLET EVERY DAY Rx Instructions: TAKE 1 TABLET EVERY DAY betamethasone dipropionate 0.05 % cream 1 applic topical BID PRN (Reason: skin irritation) Qty: 45 5RF nystatin-triamcinolone 100,000-0.1 unit/g-% cream 1 applic topical TID PRN (Reason: Buttock irritation) Qty: 60 3RF Eliquis 5 mg tablet 5 mg PO BID Qty: 180 1RF cholecalciferol (vitamin D3) 25 mcg (1,000 unit) capsule 2,000 unit PO ONCE Qty: 90 1RF dapagliflozin propanediol [Farxiga] 10 mg tablet 10 mg PO DAILY 90 Days Qty: 90 1RF levothyroxine 112 mcg tablet 112 mcg PO DAILY Qty: 90 1RF losartan 50 mg tablet See Rx Instructions .ROUTE .COMPLEX Qty: 90 1RF Rx Instructions: TAKE 1 TABLET EVERY DAY metolazone 5 mg tablet 5 mg PO DIRECTED 90 Days Qty: 90 1RF Rx Instructions: Take one tab on MON/WED/FRI only metoprolol succinate [Toprol XL] 25 mg tablet extended release 24 hr 25 mg PO DAILY Qty: 90 1RF rosuvastatin 20 mg tablet 20 mg PO DAILY Qty: 90 1RF spironolactone 25 mg tablet 25 mg PO DAILY Qty: 90 1RF Referrals Follow up/Referrals: Jose Bernal MD [Primary Care Provider] - See instructions Clinical Impressions Clinical Impression: Unstable angina Print Language Print Language: Citizen Of [place] Discharge ED Provider: Davin Lancaster <Davin Lancaster MD - Last Filed: 03/21/24 07:00> General Chief Complaint: Chest Pain Stated Complaint: CP Time Seen by Provider: 03/21/24 05:57 History of Present Illness HPI narrative: 84-year-old female with history of hyperlipidemia, atrial fibrillation, cardiac pacemaker, factor V Leiden, HFpEF, on 2 L nasal cannula at home presents to the ER with concerns of chest pain. 3 hours prior to arrival patient woke up with sudden onset stabbing sharp chest pain and nausea. The pain was nonradiating. Patient reports she waited to call EMS until nearly 5:30 AM. On EMS arrival, her blood pressure was in the 160s and she reported 10 out of 10 pain. I reviewed the ECGs from EMS which do not demonstrate acute ischemic changes, rate was 69, paced, on both ECGs. EMS reports they administered 3 to 24 mg of aspirin as well as 2 doses of nitro spray, the last of which was administered 10 minutes prior to arrival. Patient reported steady improvement of her chest pain, and on my assessment is reporting pain 4 out of 10. Her blood pressure with EMS and also improved and on arrival in the ER is 122/63. Patient reports she is not having vomiting or diarrhea, no dizziness, she states since getting the nitro she has developed a mild headache. She is not having any neurologic deficits. She reports she has been taking her home medications as prescribed, has not missed any doses. She reports she takes metaxalone for fluid 3 days a week. Patient reports no symptoms of being ill recently, no fevers or chills, no dysuria or hematuria, no other associated symptoms. She is a patient of Dr. Alonso. Related Data Previous Rx's ?Medication ?Instructions ?Recorded albuterol sulfate 90 mcg/actuation 2 puff inhalation Q6H PRN 12/31/23 aerosol inhaler shortness of breath or wheezing #8.5 grams anastrozole 1 mg tablet See Rx Instructions .Route 02/02/24 .COMPLEX #90 tabs betamethasone dipropionate 0.05 % 1 applic topical BID PRN skin 02/02/24 topical cream irritation #45 grams nystatin-triamcinolone 100,000 1 applic topical TID PRN Buttock 02/02/24 unit/g-0.1 % topical cream irritation #60 grams apixaban 5 mg tablet (Eliquis) 5 mg PO BID #180 tabs 02/06/24 cholecalciferol (vitamin D3) 25 2,000 unit PO ONCE Supplement #90 02/06/24 mcg (1,000 unit) capsule caps dapagliflozin propanediol 10 mg 10 mg PO DAILY 90 days #90 tabs 02/06/24 tablet (Farxiga) levothyroxine 112 mcg tablet 112 mcg PO DAILY #90 tabs 02/06/24 losartan 50 mg tablet See Rx Instructions .Route 02/06/24 .COMPLEX High blood pressure #90 tabs metolazone 5 mg tablet 5 mg PO DIRECTED 90 days #90 02/06/24 tabs metoprolol succinate 25 mg 25 mg PO DAILY #90 tabs 02/06/24 tablet,extended release 24 hr (Toprol XL) rosuvastatin 20 mg tablet 20 mg PO DAILY #90 tabs 02/06/24 spironolactone 25 mg tablet 25 mg PO DAILY #90 tabs 02/06/24 cefdinir 300 mg capsule 300 mg PO BID #30 caps 02/12/24 triamcinolone acetonide 0.1 % 1 applic topical TID PRN 02/12/24 topical cream Dermatitis on legs #453.6 grams Allergies Allergy/AdvReac Type Severity Reaction Status Date / Time atropine [From ] Allergy Unknown Verified 02/12/24 11:43 hyoscyamine [From ] Allergy Unknown Verified 02/12/24 11:43 lidocaine [LIDOCAINE] Allergy Unknown I-RASH Verified 02/12/24 11:43 metaxalone [METAXALONE] Allergy Unknown I-RASH Verified 02/12/24 11:43 morphine [MORPHINE] Allergy Unknown I-RASH Verified 02/12/24 11:43 oxycodone [OXYCODONE] Allergy Unknown I-RASH Verified 02/12/24 11:43 oxytetracycline Allergy Unknown I-RASH Verified 02/12/24 11:43 [From TERRAMYCIN] phenobarbital [From ] Allergy Unknown Verified 02/12/24 11:43 scopolamine [From ] Allergy Unknown Verified 02/12/24 11:43 Sulfa (Sulfonamide Allergy Unknown I-RASH Verified 02/12/24 11:43 Antibiotics) [SULFA (SULFONAMIDE ANTIBIOTICS)] [facility] <Davin Lancaster MD - Last Filed: 03/21/24 07:00> [facility] Disclaimer: The information contained in this section may have been updated after the patient was seen, as this information can be updated by other users. Medical History Hyperlipidemia Factor V Leiden Claudication Abnormal Doppler ultrasound of carotid artery Pain in right leg Edema (HFpEF) heart failure with preserved ejection fraction Hematoma Dyspnea Abnormal EKG Abnormal cardiovascular stress test Cardiomyopathy Social History Smoking Status: Never smoker second hand exposure: No alcohol intake: never substance use type: denies use current occupational status: retired Travel in the last 8 weeks: Inside the [place] household members: none housing: house current occupational exposures/hazards: No caffeine: Yes Other Medical History Have you received the Flu Vaccine for this season: Yes Have you received the Pneumonia Vaccine: Yes <Davin Lancaster MD - Last Filed: 03/21/24 07:00> ROS Obtained: Yes All systems reviewed & no additional complaints except as documented Positive ROS per HPI. Physical Exam <Davin Lancaster MD - Last Filed: 03/21/24 07:00> General General appearance: alert, in no apparent distress and obese Head Head exam: atraumatic and normocephalic Eye Eye exam: Present PERRL and EOMI ENT ENT exam: Present mucous membranes moist Neck Neck exam: Present normal inspection and full ROM Chest Chest inspection: Present symmetric chest wall rise; Absent tenderness Respiratory Respiratory exam: Present normal lung sounds bilaterally; Absent respiratory distress, wheezes or stridor Cardiovascular Cardiovascular exam: Present regular rate and normal rhythm Abdominal Exam Abdominal exam: Present soft; Absent distention, tenderness, guarding or rebound Extremities Exam Extremities exam: Present full ROM; Absent edema Neurological Exam Neurological exam: Present alert and oriented X3; Absent motor sensory deficit Psychiatric Psychiatric exam: Present normal affect and normal mood Skin Skin exam: Present warm and dry HEART Score <Davin Lancaster MD - Last Filed: 03/21/24 07:00> HEART Score HEART Score assessment performed?: Yes History (anamnesis): Moderately suspicious ECG: Non-specific disturbance Age: >65 years Risk factors: 3 or more risk factors Troponin: </= normal limit HEART Score: 6 <Constantine Marquez MD - Last Filed: 03/21/24 08:05> HEART Score HEART Score: 6 Critical Care <Davin Lancaster MD - Last Filed: 03/21/24 07:00> Critical Care Time Critical Care Time: No Medical Decision Making <Davin Lancaster MD - Last Filed: 03/21/24 07:00> Medical Records Medical records reviewed: Yes I reviewed the patient's medical records. MR Comment: Most recent cardiology progress note with Nida Gonzáles from October 2023 was reviewed. At that visit, patient reported occasional shortness of breath when she walks, but improving. Plan at that time was to continue anticoagulation on Eliquis, IVC filter in place with no plans for removal since patient is high risk for recurrence and it is likely endothelialized, no change of her medications, return to clinic in 6 months Serjio Inquiry Pt receiving controlled substance: No Vital Signs Vital Signs: 03/21/24 05:57 03/21/24 06:07 03/21/24 06:18 Temperature 98.1 F Temperature Source Oral Pulse Rate 70 70 Pulse Rate [Right Radial] 70 Respiratory Rate 18 Blood Pressure 122/63 Blood Pressure [Right Arm] 122/63 Blood Pressure Mean [Right Arm] 82 Blood Pressure Source [Right Arm] Automatic Cuff Blood Pressure Position [Right Arm] Supine 02 Sat by Pulse Oximetry 98 87 L Oxygen Delivery Method Room Air Oxygen Flow Rate (LPM) 03/21/24 06:30 03/21/24 07:01 03/21/24 07:31 Temperature Temperature Source Pulse Rate 71 70 67 Pulse Rate [Right Radial] Respiratory Rate Blood Pressure 118/66 124/65 115/69 Blood Pressure [Right Arm] Blood Pressure Mean [Right Arm] Blood Pressure Source [Right Arm] Blood Pressure Position [Right Arm] 02 Sat by Pulse Oximetry 98 100 96 Oxygen Delivery Method Nasal Cannula Nasal Cannula Oxygen Flow Rate (LPM) 2 Lab Data Labs: Lab Results 03/21/24 06:07: WBC 9.7, RBC 3.78 L, Hgb 12.1 L, Hct 37.2, MCV 98.4, MCH 31.9 H, MCHC 32.4, RDW 14.1, Plt Count 173, MPV 8.5, Neut % (Auto) 83.4 H, Lymph % (Auto) 10.4, [place] % (Auto) 4.8, Eos % (Auto) 1.0, Baso % (Auto) 0.4, Neut # (Auto) 8.1 H, Lymph # (Auto) 1.0, [place] # (Auto) 0.5, Eos # (Auto) 0.1, Baso # (Auto) 0.0, Sodium 141, Potassium 4.5, Chloride 106, Carbon Dioxide 28, Anion Gap 11.5, BUN 28 H, Creatinine 1.20 H, Estimated Creat Clear 65, Estimated GFR 43 L, Est GFR ( Amer) 52 L, Glucose 135 H, Calcium 9.4, Total Bilirubin 0.9, AST 58 H, ALT 26, Alkaline Phosphatase 69, Troponin I < 0.01, NT-Pro-B Natriuret Pep 884 H, Total Protein 7.4, Albumin 4.2, Globulin 3.2, Albumin/Globulin Ratio 1.3 03/21/24 06:38: D-Dimer 0.67 H 03/21/24 06:07 03/21/24 06:07 Response Orders (Tests/Meds): ED MEDICATIONS Generic Name Dose Route Start Last Admin Trade Name Freq PRN Reason Stop Dose Admin Nitroglycerin 0.4 mg 03/21/24 05:59 Nitroglycerin 0.4mg Sl Tablet SL 03/22/24 05:59 Q5MINP PRN Chest Pain Discontinued Medications Generic Name Dose Route Start Last Admin Trade Name Freq PRN Reason Stop Dose Admin Acetaminophen 1,000 mg 03/21/24 06:54 03/21/24 07:22 Acetaminophen 500mg Tab PO 03/21/24 06:55 1,000 mg ONCE ONE Administration Ondansetron HCl 4 mg 03/21/24 06:10 03/21/24 06:23 Ondansetron 4mg/2ml Vial IV 03/21/24 06:11 4 mg ONCE ONE Administration ORDERS Category Date Time Status XR chest portable Stat Exams 03/21/24 05:59 Completed Complete Blood Count Auto Diff Stat Lab 03/21/24 06:07 Completed Comprehensive Metabolic Panel Stat Lab 03/21/24 06:07 Completed D-Dimer Stat Lab 03/21/24 06:38 Completed HIV (1&2) Antibody Rapid Stat Lab 03/21/24 06:15 Ordered Hep C Ab with Reflex to RNA Stat Lab 03/21/24 06:15 Ordered NT Pro Brain Natriuretic Pep. Stat Lab 03/21/24 06:07 Completed Troponin I Q3H Lab 03/21/24 09:00 Ordered Troponin I Q3H Lab 03/21/24 12:00 Ordered Troponin I Stat Lab 03/21/24 06:07 Completed MDM Narrative Medical Decision Narrative: In summary, this 84-year-old female with comorbidities as listed in the HPI which increase her overall morbidity presents to the emergency department today with chest pain, nausea. On initial evaluation patient is hemodynamically stable on arrival with improving chest pain, cardiopulmonary exam overall reassuring, abdominal exam benign, patient is fully alert and oriented, blood pressure that was reportedly hypertensive when EMS initially arrived is now normotensive. Differential diagnosis includes but is not limited to ACS, PE, I considered esophageal spasm, viral syndrome, pneumothorax, pneumonia, electrolyte abnormality, dehydration. Based on these concerns, I ordered serum labs, cardiac workup, D-dimer, chest. ECG personally interpreted demonstrates paced rhythm, rate 69, QTc 453, appears to be left axis deviation though it is difficult to interpret, no STEMI. As needed nitro ordered for the patient. Labs personally reviewed demonstrate no leukocytosis, mild anemia, platelets normal, CMP with mild baseline kidney dysfunction, creatinine 1.20 today, previously 1.1. Slight AST elevation nonspecific and nonactionable at this time, initial troponin undetectably low less than 0.01, BNP improved from prior at 884. XR personally interpreted demonstrates enlarged cardiac silhouette, no lobar infiltrate, no pneumothorax, mild bibasilar atelectasis versus pulmonary edema, questionable slight right pleural effusion. Radiology read pending Repeat ECG demonstrates paced rhythm, rate 69, no dynamic changes, QTc 475, no STEMI. On reassessment, patient reports her chest pain continues to improve, additional nitro has not been administered. She is complaining of nitro headaches and Tylenol administered. D-dimer pending, ultimately patient will require admission for concerns of unstable angina however awaiting completion of laboratory workup prior to admission. Patient handed off to Dr. Marquez in stable condition. <Constantine Marquez MD - Last Filed: 03/21/24 08:05> Vital Signs Vital Signs: 03/21/24 05:57 03/21/24 06:07 03/21/24 06:18 Temperature 98.1 F Temperature Source Oral Pulse Rate 70 70 Pulse Rate [Right Radial] 70 Respiratory Rate 18 Blood Pressure 122/63 Blood Pressure [Right Arm] 122/63 Blood Pressure Mean [Right Arm] 82 Blood Pressure Source [Right Arm] Automatic Cuff Blood Pressure Position [Right Arm] Supine 02 Sat by Pulse Oximetry 98 87 L Oxygen Delivery Method Room Air Oxygen Flow Rate (LPM) 03/21/24 06:30 03/21/24 07:01 03/21/24 07:31 Temperature Temperature Source Pulse Rate 71 70 67 Pulse Rate [Right Radial] Respiratory Rate Blood Pressure 118/66 124/65 115/69 Blood Pressure [Right Arm] Blood Pressure Mean [Right Arm] Blood Pressure Source [Right Arm] Blood Pressure Position [Right Arm] 02 Sat by Pulse Oximetry 98 100 96 Oxygen Delivery Method Nasal Cannula Nasal Cannula Oxygen Flow Rate (LPM) 2 Lab Data Labs: Lab Results 03/21/24 06:07: WBC 9.7, RBC 3.78 L, Hgb 12.1 L, Hct 37.2, MCV 98.4, MCH 31.9 H, MCHC 32.4, RDW 14.1, Plt Count 173, MPV 8.5, Neut % (Auto) 83.4 H, Lymph % (Auto) 10.4, [place] % (Auto) 4.8, Eos % (Auto) 1.0, Baso % (Auto) 0.4, Neut # (Auto) 8.1 H, Lymph # (Auto) 1.0, [place] # (Auto) 0.5, Eos # (Auto) 0.1, Baso # (Auto) 0.0, Sodium 141, Potassium 4.5, Chloride 106, Carbon Dioxide 28, Anion Gap 11.5, BUN 28 H, Creatinine 1.20 H, Estimated Creat Clear 65, Estimated GFR 43 L, Est GFR ( Amer) 52 L, Glucose 135 H, Calcium 9.4, Total Bilirubin 0.9, AST 58 H, ALT 26, Alkaline Phosphatase 69, Troponin I < 0.01, NT-Pro-B Natriuret Pep 884 H, Total Protein 7.4, Albumin 4.2, Globulin 3.2, Albumin/Globulin Ratio 1.3 03/21/24 06:38: D-Dimer 0.67 H Response Orders (Tests/Meds): ED MEDICATIONS Generic Name Dose Route Start Last Admin Trade Name Freq PRN Reason Stop Dose Admin Nitroglycerin 0.4 mg 03/21/24 05:59 Nitroglycerin 0.4mg Sl Tablet SL 03/22/24 05:59 Q5MINP PRN Chest Pain Discontinued Medications Generic Name Dose Route Start Last Admin Trade Name Trini PRN Reason Stop Dose Admin Acetaminophen 1,000 mg 03/21/24 06:54 03/21/24 07:22 Acetaminophen 500mg Tab PO 03/21/24 06:55 1,000 mg ONCE ONE Administration Ondansetron HCl 4 mg 03/21/24 06:10 03/21/24 06:23 Ondansetron 4mg/2ml Vial IV 03/21/24 06:11 4 mg ONCE ONE Administration ORDERS Category Date Time Status XR chest portable Stat Exams 03/21/24 05:59 Completed Complete Blood Count Auto Diff Stat Lab 03/21/24 06:07 Completed Comprehensive Metabolic Panel Stat Lab 03/21/24 06:07 Completed D-Dimer Stat Lab 03/21/24 06:38 Completed HIV (1&2) Antibody Rapid Stat Lab 03/21/24 06:15 Ordered Hep C Ab with Reflex to RNA Stat Lab 03/21/24 06:15 Ordered NT Pro Brain Natriuretic Pep. Stat Lab 03/21/24 06:07 Completed Troponin I Q3H Lab 03/21/24 09:00 Ordered Troponin I Q3H Lab 03/21/24 12:00 Ordered Troponin I Stat Lab 03/21/24 06:07 Completed MDM Narrative Medical Decision Narrative: In summary, this 84-year-old female with comorbidities as listed in the HPI which increase her overall morbidity presents to the emergency department today with chest pain, nausea. On initial evaluation patient is hemodynamically stable on arrival with improving chest pain, cardiopulmonary exam overall reassuring, abdominal exam benign, patient is fully alert and oriented, blood pressure that was reportedly hypertensive when EMS initially arrived is now normotensive. Differential diagnosis includes but is not limited to ACS, PE, I considered esophageal spasm, viral syndrome, pneumothorax, pneumonia, electrolyte abnormality, dehydration. Based on these concerns, I ordered serum labs, cardiac workup, D-dimer, chest. ECG personally interpreted demonstrates paced rhythm, rate 69, QTc 453, appears to be left axis deviation though it is difficult to interpret, no STEMI. As needed nitro ordered for the patient. Labs personally reviewed demonstrate no leukocytosis, mild anemia, platelets normal, CMP with mild baseline kidney dysfunction, creatinine 1.20 today, previously 1.1. Slight AST elevation nonspecific and nonactionable at this time, initial troponin undetectably low less than 0.01, BNP improved from prior at 884. XR personally interpreted demonstrates enlarged cardiac silhouette, no lobar infiltrate, no pneumothorax, mild bibasilar atelectasis versus pulmonary edema, questionable slight right pleural effusion. Radiology read pending Repeat ECG demonstrates paced rhythm, rate 69, no dynamic changes, QTc 475, no STEMI. On reassessment, patient reports her chest pain continues to improve, additional nitro has not been administered. She is complaining of nitro headaches and Tylenol administered. D-dimer pending, ultimately patient will require admission for concerns of unstable angina however awaiting completion of laboratory workup prior to admission. Patient handed off to Dr. Marquez in stable condition. Constantine Marquez: Upon assumption of care patient is hemodynamically stable, in bed on home oxygen settings. Workup reviewed by me, hematologic labs are nonactionable, no significant elevated white count, no CARIDAD or critical electrolyte abnormality. D-dimer 0.67 and years criteria excludes pulmonary embolism at this point therefore imaging was considered but will be deferred. Initial troponin undetectably low however patient's pain started at approximately 3 AM this morning. Patient's pain is currently 3 out of 10 which has been significantly responsive to nitroglycerin as it was 10 out of 10 upon arrival. Given patient's comorbidities, age, and unstable angina patient is appropriate for admission at this point. The case was discussed with Dr. Enriquez regarding management patient will be admitted to hospitalist service for continued evaluation at this time.
[2024-03-21 06:18] LABS: Basophils % 0.4 % (0.1-2.0); Eosinophils # 0.1 K/mm3 (0.0-0.4); Hematocrit 37.2 % (37.0-47.0); Hemoglobin 12.1 g/dL (12.2-16.2); Lymphocytes % 10.4 % (10-50); Mean Corpuscular HGB Conc 32.4 g/dL (31.8-35.4); Mean Corpuscular Hemoglobin 31.9 pg (27.0-31.2); Mean Corpuscular Volume 98.4 fl (81-99); Mean Platelet Volume 8.5 fl (7.4-10.4); Monocytes # 0.5 K/mm3 (0.1-1.0); Monocytes % 4.8 % (1.7-9.3); Neutrophils # 8.1 K/mm3 (1.8-7.8); Neutrophils % 83.4 % (37.0-80.0); Platelet Count 173 K/mm3 (142-424); Red Blood Count 3.78 M/mm3 (4.20-5.40); Red Cell Distribution Width 14.1 % (11.5-17.5); White Blood Count 9.7 K/mm3 (4.8-10.8)
[2024-03-21 06:20] LABS: Albumin Level 4.2 g/dl (3.5-5.0); Chloride 106 mmol/L (98-107); Potassium 4.5 mmoL/L (3.5-5.1); Sodium 141 mmol/L (136-145)
[2024-03-21 06:23] LABS: Alanine Aminotransferase 26 U/L (12-78); Albumin/Globulin Ratio 1.3 (1.1-1.8); Alkaline Phosphatase 69 U/L (38-126); Anion Gap 11.5 mEq/L (5-15); Aspartate Amino Transferase 58 U/L (14-36); Bilirubin,Total 0.9 mg/dl (0.2-1.3); Blood Urea Nitrogen 28 mg/dl (7-17); Carbon Dioxide 28 mmol/L (22.0-30.0); Creatinine Clearance Estimated 65 mL/min (50-200); Estimated Glomerular Filt Rate 43 ml/min (>60); GFR (African American) 52 ML/MIN (>60); Globulin 3.2 g/dL (1.3-3.2); Total Protein,Serum 7.4 g/dl (6.3-8.2)
[2024-03-21] MEDS: ONDANSETRON 4MG/2ML VIAL 4 MG IV (06:23)
[2024-03-21 06:24] LABS: Calcium 9.4 mg/dl (8.4-10.2); Glucose 135 mg/dl (74-100)
[2024-03-21 06:33] LABS: NT Pro Brain Natriuretic Pep. 884 pg/mL (0-450)
--- NOTE | 2024-03-21 06:33 | ECG_ITS ---
APPROVED REPORT Exam: Resting ECG HR:69 bpm ECG Measurements Heart Rate 69 AXES QRSd 141 QRS 241 QT 455 T 79 QTc 475 Conclusion ELECTRONIC VENTRICULAR PACEMAKER ABNORMAL RHYTHM ECG UNCONFIRMED REPORT Electronically signed by : SUMAN MARTELL, 03/23/2024 04:32:24
[2024-03-21 06:36] LABS: Troponin I < 0.01 ng/ml (0.00-0.034)
[2024-03-21 06:57] LABS: D-Dimer 0.67 ug/mL (0.0-0.5)
--- NOTE | 2024-03-21 07:08 | PC.NURSE ---
Dr. Marquez at BS speaking with pt
[2024-03-21] MEDS: ACETAMINOPHEN 500MG TAB 1000 MG PO (07:22)
--- NOTE | 2024-03-21 08:06 | PC.NURSE ---
spoke with House regarding bed
--- NOTE | 2024-03-21 08:23 | ECG_ITS ---
APPROVED REPORT Exam: Resting ECG HR:69 bpm ECG Measurements Heart Rate 69 AXES QRSd 166 QRS -67 QT 460 T 9 QTc 480 Conclusion ELECTRONIC VENTRICULAR PACEMAKER ST DEPRESSION, CONSIDER SUBENDOCARDIAL INJURY [0.1+ mV ST DEPRESSION] ABNORMAL ECG UNCONFIRMED REPORT Electronically signed by : SUMAN MARTELL, 03/22/2024 06:37:30
--- NOTE | 2024-03-21 08:53 | PC.NURSE ---
report called to [facility]
--- NOTE | 2024-03-21 08:59 | PC.NURSE ---
jimmy sent to lab
--- NOTE | 2024-03-21 09:03 | PC.NURSE ---
arrived by w/c from ED
[2024-03-21 09:45] LABS: Troponin I < 0.01 ng/ml (0.00-0.034)
[2024-03-21 10:14] LABS: HIV (1&2) Antibody Rapid NONREACTIVE (NONREACTIVE)
--- NOTE | 2024-03-21 11:13 | P.HP_ITS ---
History of Present Illness *Admission Date: 03/21/24 *Reason for visit:: chest pain *History of present illness: Ms. Alonzo is an 84-year-old female who lives by herself. Has a history of A- fib, pacemaker in situ, factor V Leiden, HFpEF, morbid obesity. She woke up this morning approximately 3 AM with acute onset of chest pain. She called her [id number] who came over to check on her. Pain was described as sharp in her chest. Had some nausea. States she felt like she needed to belch. Pain is 10 out of 10. Called EMS and they brought her to the ER for further management. Found to have elevated blood pressure on their initial evaluation. EKGs obtained that did not show any ischemic changes. Patient received 324 mg of aspirin and 2 doses of nitro spray. Pain improved to a 4 out of 10. Found to have improvement in her pain and blood pressure by arrival to the ER. Denies any vomiting, diarrhea, headache, confusion. No shortness of breath. Given her history and characterization of pain, medicine consulted for admission and further monitoring. On arrival to the floor, patient feeling somewhat better. Chest pain more or less resolved. Has had heart cath in the past, most recent per our records here 4 years ago with clean coronaries. Will monitor on telemetry. Initial troponin negative. O2 sats were 87% on arrival to the ER, currently on 2 L nasal cannula oxygen. Labs relatively unremarkable with normal white count, baseline kidney function stable. BNP marginally elevated at 884. [facility] Disclaimer: The information contained in this section may have been updated after the patient was seen, as this information can be updated by other users. Medical History Hyperlipidemia Factor V Leiden Claudication Abnormal Doppler ultrasound of carotid artery Pain in right leg Edema (HFpEF) heart failure with preserved ejection fraction Hematoma Dyspnea Abnormal EKG Abnormal cardiovascular stress test Cardiomyopathy Family History Other Family history of diabetes mellitus type II Family history of hyperlipidemia Family history of hypertension Family history of myocardial infarction Social History Smoking Status: Never smoker second hand exposure: No alcohol intake: never substance use type: denies use current occupational status: retired Travel in the last 8 weeks: Inside the [place] household members: none housing: house current occupational exposures/hazards: No caffeine: Yes Other Medical History Have you received the Flu Vaccine for this season: No Have you received the Pneumonia Vaccine: Yes Review of Systems Review of Systems Review of systems (narrative): 14 point review of systems performed, pertinent positives and negatives as per HPI Meds Home Medications and Allergies Home Medications ?Medication ?Instructions ?Recorded ?Confirmed ?Type albuterol sulfate 90 mcg/actuation 2 puff inhalation Q6H PRN 12/31/23 03/21/24 Rx aerosol inhaler shortness of breath or wheezing #8.5 grams anastrozole 1 mg tablet See Rx Instructions .Route 02/02/24 03/21/24 Rx .COMPLEX #90 tabs betamethasone dipropionate 0.05 % 1 applic topical BID PRN skin 02/02/24 03/21/24 Rx topical cream irritation #45 grams nystatin-triamcinolone 100,000 1 applic topical TID PRN Buttock 02/02/24 03/21/24 Rx unit/g-0.1 % topical cream irritation #60 grams apixaban 5 mg tablet (Eliquis) 5 mg PO BID #180 tabs 02/06/24 03/21/24 Rx cholecalciferol (vitamin D3) 25 2,000 unit PO ONCE Supplement #90 02/06/24 03/21/24 Rx mcg (1,000 unit) capsule caps dapagliflozin propanediol 10 mg 10 mg PO DAILY 90 days #90 tabs 02/06/24 03/21/24 Rx tablet (Farxiga) levothyroxine 112 mcg tablet 112 mcg PO DAILY #90 tabs 02/06/24 03/21/24 Rx losartan 50 mg tablet See Rx Instructions .Route 02/06/24 03/21/24 Rx .COMPLEX High blood pressure #90 tabs metolazone 5 mg tablet 5 mg PO DIRECTED 90 days #90 02/06/24 03/21/24 Rx tabs metoprolol succinate 25 mg 25 mg PO DAILY #90 tabs 02/06/24 03/21/24 Rx tablet,extended release 24 hr (Toprol XL) rosuvastatin 20 mg tablet 20 mg PO DAILY #90 tabs 02/06/24 03/21/24 Rx spironolactone 25 mg tablet 25 mg PO DAILY #90 tabs 02/06/24 03/21/24 Rx triamcinolone acetonide 0.1 % 1 applic topical TID PRN 02/12/24 03/21/24 Rx topical cream Dermatitis on legs #453.6 grams New Prescriptions to Start Prescriptions: Allergies Allergy/AdvReac Type Severity Reaction Status Date / Time atropine [From ] Allergy Unknown Verified 02/12/24 11:43 hyoscyamine [From ] Allergy Unknown Verified 02/12/24 11:43 lidocaine [LIDOCAINE] Allergy Unknown I-RASH Verified 02/12/24 11:43 metaxalone [METAXALONE] Allergy Unknown I-RASH Verified 02/12/24 11:43 morphine [MORPHINE] Allergy Unknown I-RASH Verified 02/12/24 11:43 oxycodone [OXYCODONE] Allergy Unknown I-RASH Verified 02/12/24 11:43 oxytetracycline Allergy Unknown I-RASH Verified 02/12/24 11:43 [From TERRAMYCIN] phenobarbital [From ] Allergy Unknown Verified 02/12/24 11:43 scopolamine [From ] Allergy Unknown Verified 02/12/24 11:43 Sulfa (Sulfonamide Allergy Unknown I-RASH Verified 02/12/24 11:43 Antibiotics) [SULFA (SULFONAMIDE ANTIBIOTICS)] Exam Data for Last 24 hours Vital signs and Labs for Last 24 Hours: Temp Pulse Resp BP Pulse Ox O2 Del Method O2 Flow Rate 98.2 F 70 20 130/63 100 Room Air 2 03/21/24 09:13 03/21/24 09:13 03/21/24 09:13 03/21/24 09:13 03/21/24 09:13 03/21/24 09:00 03/21/24 07:31 Laboratory Results - last 24 hr 03/21/24 06:07: WBC 9.7, RBC 3.78 L, Hgb 12.1 L, Hct 37.2, MCV 98.4, MCH 31.9 H, MCHC 32.4, RDW 14.1, Plt Count 173, MPV 8.5, Neut % (Auto) 83.4 H, Lymph % (Auto) 10.4, [place] % (Auto) 4.8, Eos % (Auto) 1.0, Baso % (Auto) 0.4, Neut # (Auto) 8.1 H, Lymph # (Auto) 1.0, [place] # (Auto) 0.5, Eos # (Auto) 0.1, Baso # (Auto) 0.0, Sodium 141, Potassium 4.5, Chloride 106, Carbon Dioxide 28, Anion Gap 11.5, BUN 28 H, Creatinine 1.20 H, Estimated Creat Clear 65, Estimated GFR 43 L, Est GFR ( Amer) 52 L, Glucose 135 H, Calcium 9.4, Total Bilirubin 0.9, AST 58 H, ALT 26, Alkaline Phosphatase 69, Troponin I < 0.01, NT-Pro-B Natriuret Pep 884 H, Total Protein 7.4, Albumin 4.2, Globulin 3.2, Albumin/Globulin Ratio 1.3, HIV 1&2 Antibody Rapid Nonreactive 03/21/24 06:38: D-Dimer 0.67 H 03/21/24 09:00: Troponin I < 0.01 I & O for Last 24 hours: Intake & Output 03/18/24 03/19/24 03/20/24 03/21/24 23:59 23:59 23:59 23:59 Intake Total 460 / 460 Balance 460 / 460 Weight 115.836 kg Constitutional Constitutional: no acute distress, morbidly obese and cooperative *Routine HEENT Exam Head: Present normocephalic Eye: Present EOMI and PERRL ENT: Present mucous membranes moist *Routine Neck Exam Neck: Present supple; Absent lymphadenopathy Routine Chest/Breast/Axilla Exam Chest wall: Present pacemaker *Routine Respiratory Exam Respiratory: Present CTA bilaterally; Absent respiratory distress, rhonchi, wheezes or crackles *Routine Cardiovascular Exam Cardiovascular: Present RRR *Routine Abdominal Exam Abdominal: Present soft and normoactive bowel sounds; Absent tenderness *Routine Rectal Exam Rectal:: deferred *Routine Genitalia Exam Genitalia:: deferred *Routine Extremities Exam Extremities: Present edema (Trace bilateral lower extremity); Absent cyanosis or clubbing *Routine Skin Exam Skin: Present intact, warm and rash Comments: Chronic stasis changes to lower extremities *Routine Neurological Exam Neurological: Present alert, oriented X3 and moving all extremities; Absent altered mental status Assessment and Plan *Assessment and plan (1) Unstable angina: Status: Acute Category: Medical Code(s): I20.0 - Unstable angina (2) Hypertension: Status: Acute Category: Medical Code(s): I10 - Essential (primary) hypertension (3) Hyperlipidemia: Status: Acute Qualifiers: Hyperlipidemia type: mixed hyperlipidemia Qualified Code(s): E78.2 - Mixed hyperlipidemia Category: Medical Code(s): E78.5 - Hyperlipidemia, unspecified (4) Atrial fibrillation: Status: Chronic Qualifiers: Atrial fibrillation type: unspecified chronic Qualified Code(s): I48.20 - Chronic atrial fibrillation, unspecified Category: Medical Code(s): I48.91 - Unspecified atrial fibrillation (5) Cardiac pacemaker in situ: Status: Chronic Category: Medical Code(s): Z95.0 - Presence of cardiac pacemaker (6) History of pulmonary embolism: Status: Chronic Category: Medical Code(s): Z86.711 - Personal history of pulmonary embolism (7) Peripheral artery disease: Status: Acute Category: Medical Code(s): I73.9 - Peripheral vascular disease, unspecified (8) Lymphedema: Status: Chronic Category: Medical Code(s): I89.0 - Lymphedema, not elsewhere classified (9) Chronic venous insufficiency of lower extremity: Status: Chronic Category: Medical Code(s): I87.2 - Venous insufficiency (chronic) (peripheral) (10) Factor V Leiden: Status: Acute Category: Medical Code(s): D68.51 - Activated protein C resistance (11) (HFpEF) heart failure with preserved ejection fraction: Status: Acute Category: Medical Code(s): I50.30 - Unspecified diastolic (congestive) heart failure Plan 84-year-old female who presented to the ER with acute onset of chest pain that woke her this morning. Concern for unstable angina. Discussed case with ER physician, request admission for further monitoring, serial labs, cardiology eval. I agreed to admit for further management. Heart score at least 5, necessitating admission and cardiology evaluation. Problems addressed as follows: Unstable angina Hypertension Hyperlipidemia -EKG reviewed, no ST changes, initial troponin negative, serial troponins pending -Monitor on telemetry -Cardiology consulted, evaluate patient in the morning -Continue home losartan 50 mg daily, metolazone 5 mg daily, metoprolol succinate 25 mg daily, spironolactone 25 mg daily, dapagliflozin 10 mg daily -Reviewed chart, previous cath in 2019 with clean coronaries -Continue Crestor 20 mg daily, lipid panel pending for the morning -Consider as needed nitroglycerin sublingual if has further chest pain Factor 5 Leiden: History of PE. Continue Eliquis 5 mg twice daily. Morbid obesity, complicates all aspects of her care Full code Eliquis 5 mg twice daily Cardiac diet, n.p.o. at midnight
[2024-03-21] MEDS: FUROSEMIDE 40MG/4ML VIAL 40 MG IV (12:34)
[2024-03-21] MEDS: DAPAGLIFLOZIN 10 MG PO (12:35)
[2024-03-21] MEDS: LEVOTHYROXINE 112 MCG PO (12:35)
[2024-03-21] MEDS: PAT OWN MED ***SPIRONOLACTONE 25MG 25 MG PO (12:35)
[2024-03-21] MEDS: ELIQUIS 5 MG PO ×2 (12:36→20:57)
[2024-03-21] MEDS: PAT OWN MED ***METOPROLOL SUCCINATE XL 25MG 25 MG PO (12:36)
[2024-03-21] MEDS: LOSARTAN 50 MG 50 EACH PO (12:37)
[2024-03-21 13:08] LABS: Troponin I < 0.01 ng/ml (0.00-0.034)
--- NOTE | 2024-03-21 18:06 | PC.NURSE ---
PT HAS DONE FAIR TODAY.. SHE DID HAVE ONE EPISODE OF INCONTINENCE THIS SHIFT. VSS. REMAINS ON ROOM AIR. NO FURTHER C/O CHEST PAIN THIS SHIFT.
--- NOTE | 2024-03-21 18:30 | PC.NURSE ---
Patient transported to OB room 279. Patient a/o x4. Patient oriented to room. Patient does well assist x1. Bed locked in lowest position and call light within reach. Bed alarm placed on for safety measures. Fresh ice water provided. Patient voices no concerns at this time.
[2024-03-21] MEDS: ROSUVASTATIN 20 MG 1 EACH PO (20:57)
--- NOTE | 2024-03-21 21:00 | PC.NURSE ---
Pt alert in bed watchign TV. Denies any chest pain or discomfort. Patient able to make needs know and states she is aware when she has an incontinent episode and will call nurse. This nurse asked patient if she is in need of incontinence care and patient denies. Call light within reach and safety measures in place per protocol. No left arm BP or IV sticks added to patients door per protocol
--- NOTE | 2024-03-21 23:05 | PC.NURSE ---
Pt resting comfortably in bed with eyes closed , No distress noted. Respirations even and unlabored. Call light in reach
[2024-03-22] VITALS (10 sets, daily range): BP systolic 89–113; BP diastolic 46–56; PULSE 60–72; RESP 17–20; TEMP 36.4–36.7; O2SAT 94–97
--- NOTE | 2024-03-22 00:26 | PC.NURSE ---
Pt hypotensive 86/49 but is asyptomatic. Pt arouses to voice, slept at interval, and denies feeling faint or dizzy. MAP 60, call made to [facility] SCHNEIDER, order recieved for Normal Saline 500ml 100ml/hr IV. Pt updated on plan of care. Verbalizes understanding
[2024-03-22] MEDS: 0.9 % SODIUM CHLORIDE 1000ML 500 ML 100 ML IV (00:38)
--- NOTE | 2024-03-22 01:33 | PC.NURSE ---
Pt resting comfortably. Eyes closed. No sign on distress. Skin pink and visible chest rise. Call light within reach
--- NOTE | 2024-03-22 03:31 | PC.NURSE ---
Patient woke and called for nurse. This nurse went into room and patient wished for a warm blanket. Patient given a warm blanket and repositioned. Offered patient to go to restroom but she denied. Patient is appropriate and reports she knows when she has had an incontinence episode and will call if she needs changed. This nurse placed call light within reach. Safety measures in place. Pt denies any further needs
--- NOTE | 2024-03-22 04:36 | PC.NURSE ---
Pt is a/o X4. Denies pain. Lungs clear to auscultations. BS X4 all 4 quads. Patient VS WNL. Denies SOA. Remains on RA. Call Light within reach and safety measures in place. Patient reports she has rested well.
--- NOTE | 2024-03-22 05:15 | PC.NURSE ---
Patient awake in bed on phone. Pt reports she is comfortable and denies any needs. Patient has been NPO since 2299, Offered to ambulate patient to bathroom and she refused. Offered to check and change patient for incontinence and she reported she is dry at this time. Patient is a/o X4 and able to verbalize needs
[2024-03-22] MEDS: LEVOTHYROXINE 112 MCG PO (06:39)
[2024-03-22 07:08] LABS: Basophils # 0.1 K/mm3 (0-0.2); Basophils % 0.8 % (0.1-2.0); Eosinophils # 0.1 K/mm3 (0.0-0.4); Eosinophils % 2.1 % (0.1-12.0); Hematocrit 35.7 % (37.0-47.0); Hemoglobin 11.4 g/dL (12.2-16.2); Lymphocytes # 1.1 K/mm3 (0.7-4.5); Lymphocytes % 20.3 % (10-50); Mean Corpuscular Hemoglobin 31.9 pg (27.0-31.2); Mean Corpuscular Volume 99.4 fl (81-99); Mean Platelet Volume 8.6 fl (7.4-10.4); Monocytes # 0.4 K/mm3 (0.1-1.0); Neutrophils # 3.9 K/mm3 (1.8-7.8); Neutrophils % 69.8 % (37.0-80.0); Platelet Count 168 K/mm3 (142-424); Red Blood Count 3.59 M/mm3 (4.20-5.40); White Blood Count 5.6 K/mm3 (4.8-10.8)
[2024-03-22 07:21] LABS: Albumin Level 3.7 g/dl (3.5-5.0); Chloride 103 mmol/L (98-107); Potassium 4.1 mmoL/L (3.5-5.1); Sodium 138 mmol/L (136-145)
[2024-03-22 07:24] LABS: Alanine Aminotransferase 22 U/L (12-78); Albumin/Globulin Ratio 1.4 (1.1-1.8); Alkaline Phosphatase 58 U/L (38-126); Anion Gap 10.1 mEq/L (5-15); Aspartate Amino Transferase 35 U/L (14-36); Bilirubin,Total 0.6 mg/dl (0.2-1.3); Blood Urea Nitrogen 40 mg/dl (7-17); Calcium 8.7 mg/dl (8.4-10.2); Carbon Dioxide 29 mmol/L (22.0-30.0); Cholesterol 94 mg/dl (140-200); Creatinine Clearance Estimated 23 mL/min (50-200); Estimated Glomerular Filt Rate 29 ml/min (>60); GFR (African American) 35 ML/MIN (>60); Globulin 2.7 g/dL (1.3-3.2); Glucose 105 mg/dl (74-100); Total Protein,Serum 6.4 g/dl (6.3-8.2); Triglycerides 57 mg/dl (30-150); VLDL Cholesterol 11 mg/dL (0-40)
[2024-03-22 07:25] LABS: Chol/HDL Ratio 3.1 (1-3.5); HDL Cholesterol 30 mg/dl (40-60)
[2024-03-22 07:36] LABS: Direct LDL Cholesterol 40.59 mg/dL (100-129)
[2024-03-22] MEDS: PANTOPRAZOLE 40MG TABLET 40 MG PO (08:34)
--- NOTE | 2024-03-22 08:42 | PC.NURSE ---
CARDIOLOGY MADE AWARE OF CONSULT THIS AM. CAMERON STATED SHE WOULD CONTACT JIMMY MALLOY
--- NOTE | 2024-03-22 09:00 | HMH.PHAINT1 ---
Pharmacy Intervention Comments: Home medication list verified using list from outpatient pharmacy and physician office list
[2024-03-22] MEDS: METOLAZONE 5 MG 5 EACH PO (09:45)
[2024-03-22] MEDS: PAT OWN MED ***SPIRONOLACTONE 25MG 25 MG PO (09:45)
[2024-03-22] MEDS: DAPAGLIFLOZIN 10 MG PO (09:45)
[2024-03-22] MEDS: PAT OWN MED ***METOPROLOL SUCCINATE XL 25MG 25 MG PO (09:45)
[2024-03-22] MEDS: LOSARTAN 50 MG 50 EACH PO (09:45)
--- NOTE | 2024-03-22 11:22 | CA_ITS ---
APPROVED REPORT EXAM: Comprehensive 2D, Doppler, and color-flow Echocardiogram Ventilator Specialist: Elayne Us CRT Ht: 5 ft 6 in Wt: 255lbs BSA: 2.22 BP: 130/63 mmHg Indications: Congestive Heart Failure, Atrial Fibrillation, Hyperlipidemia, Hypertension/HDD, pacer, factor V, hx PE, PAD, ablation, cp, hx breast CA chemo and radiation 2D Dimensions LA Volume 84.40 mL LA Volume Index 37.20 mL/m2 (M/F) 16-34 M-Mode Dimensions RVDd 3.82 cm (0.9-2.6) LA Diam 4.31 cm (1.9-4.0) LVDd 4.10 cm (3.5-5.7) LVDs 2.90 cm (3.5-5.7) IVSd 1.29 cm (0.6-1.1) PWd 1.33 cm (0.6-1.1) EF (Teich) 56.60% FS 29.30% EDV (Teich) 74.20 mL TAPSE 1.96 (<1.7) ESV (Teich) 32.20 mL LV Diastology E Decel Time 137 (160-240 msec) E/A Ratio 2.29 MED A' 4.10 cm/s LAT A' 5.30 cm/s Aortic Valve AO Peak GR. 7.70 mmHg Mitral Valve MV E Max Eleuterio. 95.0 (40-130 cm/s) MV A Velocity 41.0 (40-130 cm/s) E/A Ratio 2.29 MV PHT 40.0 ms Pulmonary Valve PV Peak Velocity 129.0 (50-150 cm/s) Tricuspid Valve TR P. Velocity 272.00 cm/s RAP Estimate 10.00 mmHg RVSP 39.70 mmHg Left Ventricle The left ventricle is normal size. The left ventricular systolic function is normal. The left ventricular ejection fraction is within the normal range. There is increased LV wall thickness. The septum is asynchronous. Diastolic function is indeterminate. LVEF is 55%. Right Ventricle The right ventricle is mildly to moderately dilated. The right ventricular systolic function is low normal. There is a device lead in the right ventricle. Atria Left atrium is severely dilated. Right atrium is severely dilated. There is no Doppler evidence of interatrial shunt. Aortic Valve The aortic valve is mildly thickened. Trace aortic regurgitation. There is no aortic valvular stenosis. Mitral Valve The mitral valve leaflets are mildly thickened. No evidence of mitral valve stenosis. Trace mitral regurgitation. Tricuspid Valve The tricuspid valve leaflets are thin and pliable. Mild to moderate tricuspid regurgitation. RVSP is 25-30 mmHg. Pulmonic Valve The pulmonary valve is grossly normal in structure. Trace pulmonic regurgitation. Great Vessels The aortic root is normal in size. The ascending aorta is mildly dilated, measuring 4.3 cm in diameter. IVC is normal in size and collapses >50% with inspiration. Pericardium There is no pericardial effusion. Other Information Study Quality: Fair Conclusion Normal LV systolic function. Asynchronous septum. Mild to moderate RV dilation with low normal RV function. Biatrial dilation. Mild to moderate TR. RVSP 25-30 mmHg. The ascending aorta is mildly dilated, measuring 4.3 cm in diameter. Electronically signed by : Lisa Johnson MD 03/22/2024 11:51:42
--- NOTE | 2024-03-22 13:27 | CT_ITS ---
PROCEDURE INFORMATION: Exam: CTA Chest With Contrast Exam date and time: 03/22/2024 2:36 PM Age: 84 years old Clinical indication: Pain; Angina pectoris; Additional info: Aaa and HX of pe with cp TECHNIQUE: Imaging protocol: Computed tomographic angiography of the chest with contrast. Exam focused on the arteries. 3D rendering (Not supervised by radiologist): MIP and/or 3D reconstructed images were created by the technologist. Radiation optimization: All CT scans at this facility use at least one of these dose optimization techniques: automated exposure control; mA and/or kV adjustment per patient size (includes targeted exams where dose is matched to clinical indication); or iterative reconstruction. Contrast material: ISOVUE 370; Contrast volume: 75 ml; Contrast route: INTRAVENOUS (IV); COMPARISON: CR XR CHEST PORTABLE 03/21/2024 6:10 AM FINDINGS: Tubes, catheters and devices: Transvenous pacemaker leads in the heart Pulmonary arteries: No evidence of pulmonary embolus to the segmental level. 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 No dissection of the aorta. Lungs: Atelectasis in the lingula Pleural spaces: Unremarkable. No pneumothorax. No pleural effusion. Heart: Unremarkable. No cardiomegaly. No pericardial effusion. Coronary arteries: Coronary artery calcifications may indicate coronary artery disease. Lymph nodes: Unremarkable. No enlarged lymph nodes. Gallbladder and biliary ducts: Cholecystectomy Bones/joints: Unremarkable. No acute fracture. Soft tissues: Unremarkable. IMPRESSION: 1. 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 2. No evidence of pulmonary embolus to the segmental level. 3. No dissection of the aorta.
--- NOTE | 2024-03-22 13:27 | EXP.CARD.CON ---
History of Present Illness History of Present Illness Consult date: 03/22/24 Requesting physician: Christiano Enriquez Consult reason: chest pain Chief complaint: chest pain History of present illness: 84-year-old female established patient of our office with history of heart failure improved EF, paroxysmal A-fib status post permanent pacemaker implant 10 years ago, recently had upgrade to BiV pacer due to 97% RV pacing. She also has PAD, factor V Leiden mutation with history of PE status post IVC filter and a BMI of 42. Patient states on day of arrival she woke from sleep with severe 10/10 chest pain, the worst pain of my life. Symptoms were constant for 1.5 hours with no modifying factors. She did not have associated GI symptoms. On arrival to the emergency room she had normal serial troponins and EKG was unchanged from prior. She was admitted overnight for observation. D-dimer was elevated at 0.6 but no CTA was pursued as GFR was 29 and her vital signs were stable on room air. Echo today shows normal LV systolic function, biatrial dilation, moderate TR and a newly noted ascending aorta dilation at 4.3cm. Pacemaker interrogation shows no events and normal function. [facility] Disclaimer: The information contained in this section may have been updated after the patient was seen, as this information can be updated by other users. Medical History Hyperlipidemia Factor V Leiden Claudication Abnormal Doppler ultrasound of carotid artery Pain in right leg Edema (HFpEF) heart failure with preserved ejection fraction Hematoma Dyspnea Abnormal EKG Abnormal cardiovascular stress test Cardiomyopathy Family History Other Family history of diabetes mellitus type II Family history of hyperlipidemia Family history of hypertension Family history of myocardial infarction Social History Smoking Status: Never smoker second hand exposure: No alcohol intake: never substance use type: denies use current occupational status: retired Travel in the last 8 weeks: Inside the [place] household members: none housing: house current occupational exposures/hazards: No caffeine: Yes Review of Systems Constitutional Constitutional: Denies fatigue and Denies weakness Eyes Eyes: Denies loss of vision ENT Ears, Nose, Mouth, and Throat: Denies hearing loss and Denies vertigo *Cardiovascular Cardiovascular: Reports chest pain, Reports dyspnea and Denies syncope *Respiratory Respiratory: Denies cough and Reports dyspnea *Gastrointestinal Gastrointestinal: Denies change in stool character, Denies nausea and Denies vomiting *Musculoskeletal Musculoskeletal: Denies muscle weakness Integumentary/Breasts Skin/Breast: Denies changing lesions *Neurologic Neurologic: Denies loss of vision, Denies syncope, Denies vertigo and Denies weakness Endocrine Endocrine: Denies fatigue Exam Data for Last 24 hours Vital signs and Labs for Last 24 Hours: Temp Pulse Resp BP Pulse Ox O2 Del Method O2 Flow Rate 98.0 F 70 19 110/50 L 95 Room Air 2 03/22/24 07:58 03/22/24 08:00 03/22/24 07:58 03/22/24 07:58 03/22/24 07:58 03/22/24 12:45 03/21/24 07:31 Laboratory Results - last 24 hr 03/22/24 06:40: WBC 5.6 D, RBC 3.59 L, Hgb 11.4 L, Hct 35.7 L, MCV 99.4 H, MCH 31.9 H, MCHC 32.0, RDW 14.0, Plt Count 168, MPV 8.6, Neut % (Auto) 69.8, Lymph % (Auto) 20.3, [place] % (Auto) 7.0, Eos % (Auto) 2.1, Baso % (Auto) 0.8, Neut # (Auto) 3.9, Lymph # (Auto) 1.1, [place] # (Auto) 0.4, Eos # (Auto) 0.1, Baso # (Auto) 0.1, Sodium 138, Potassium 4.1, Chloride 103, Carbon Dioxide 29, Anion Gap 10.1, BUN 40 H D, Creatinine 1.70 H D, Estimated Creat Clear 23, Estimated GFR 29 L, Est GFR ( Amer) 35 L D, Glucose 105 H, Calcium 8.7, Magnesium 2.0, Total Bilirubin 0.6, AST 35 D, ALT 22, Alkaline Phosphatase 58, Total Protein 6.4, Albumin 3.7 D, Globulin 2.7, Albumin/Globulin Ratio 1.4, Triglycerides 57, Cholesterol 94 L, LDL Cholesterol Direct 40.59 L, VLDL Cholesterol 11, HDL Cholesterol 30 L, Cholesterol/HDL Ratio 3.1 I & O for Last 24 hours: Intake & Output 03/19/24 03/20/24 03/21/24 03/22/24 23:59 23:59 23:59 23:59 Intake Total 1090 / 1090 Balance 1090 / 1090 Weight 255 lb 6 oz Constitutional Constitutional: no acute distress, obese and cooperative *Routine HEENT Exam Eye: Present PERRL *Routine Respiratory Exam Respiratory: Present CTA bilaterally; Absent accessory muscle use, wheezes or crackles *Routine Cardiovascular Exam Cardiovascular: Present RRR, Normal S1 and Normal S2; Absent murmur, gallop or rubs *Routine Abdominal Exam Abdominal: Present soft; Absent tenderness *Routine Extremities Exam Extremities: Present pulses intact; Absent cyanosis or edema *Routine Skin Exam Skin: Present intact; Absent erythema or wounds *Routine Neurological Exam Neurological: Present alert and oriented X3 Routine Psychiatric Exam Psychiatric: Present cooperative Meds Home Medications and Allergies Home Medications ?Medication ?Instructions ?Recorded ?Confirmed ?Type albuterol sulfate 90 mcg/actuation 2 puff inhalation Q6H PRN 12/31/23 03/21/24 Rx aerosol inhaler shortness of breath or wheezing #8.5 grams betamethasone dipropionate 0.05 % 1 applic topical BID PRN skin 02/02/24 03/21/24 Rx topical cream irritation #45 grams nystatin-triamcinolone 100,000 1 applic topical TID PRN Buttock 02/02/24 03/21/24 Rx unit/g-0.1 % topical cream irritation #60 grams apixaban 5 mg tablet (Eliquis) 5 mg PO BID #180 tabs 02/06/24 03/21/24 Rx cholecalciferol (vitamin D3) 25 2,000 unit PO ONCE Supplement #90 02/06/24 03/21/24 Rx mcg (1,000 unit) capsule caps dapagliflozin propanediol 10 mg 10 mg PO DAILY 90 days #90 tabs 02/06/24 03/21/24 Rx tablet (Farxiga) levothyroxine 112 mcg tablet 112 mcg PO DAILY #90 tabs 02/06/24 03/21/24 Rx metoprolol succinate 25 mg 25 mg PO DAILY #90 tabs 02/06/24 03/21/24 Rx tablet,extended release 24 hr (Toprol XL) spironolactone 25 mg tablet 25 mg PO DAILY #90 tabs 02/06/24 03/21/24 Rx triamcinolone acetonide 0.1 % 1 applic topical TID PRN 02/12/24 03/21/24 Rx topical cream Dermatitis on legs #453.6 grams anastrozole 1 mg tablet 1 mg PO DAILY 03/22/24 03/22/24 History losartan 50 mg tablet 50 mg PO DAILY 03/22/24 03/22/24 History metolazone 5 mg tablet 5 mg PO MOWEFR 03/22/24 03/22/24 History rosuvastatin 20 mg tablet 20 mg PO HS 03/22/24 03/22/24 History New Prescriptions to Start Prescriptions: Allergies Allergy/AdvReac Type Severity Reaction Status Date / Time atropine [From ] Allergy Unknown Verified 02/12/24 11:43 hyoscyamine [From ] Allergy Unknown Verified 02/12/24 11:43 lidocaine [LIDOCAINE] Allergy Unknown I-RASH Verified 02/12/24 11:43 metaxalone [METAXALONE] Allergy Unknown I-RASH Verified 02/12/24 11:43 morphine [MORPHINE] Allergy Unknown I-RASH Verified 02/12/24 11:43 oxycodone [OXYCODONE] Allergy Unknown I-RASH Verified 02/12/24 11:43 oxytetracycline Allergy Unknown I-RASH Verified 02/12/24 11:43 [From TERRAMYCIN] phenobarbital [From ] Allergy Unknown Verified 02/12/24 11:43 scopolamine [From ] Allergy Unknown Verified 02/12/24 11:43 Sulfa (Sulfonamide Allergy Unknown I-RASH Verified 02/12/24 11:43 Antibiotics) [SULFA (SULFONAMIDE ANTIBIOTICS)] Assessment and Plan *Assessment and plan (1) Chest pain: Status: Acute Category: Medical Code(s): R07.9 - Chest pain, unspecified (2) Atrial fibrillation: Status: Chronic Qualifiers: Atrial fibrillation type: unspecified chronic Qualified Code(s): I48.20 - Chronic atrial fibrillation, unspecified Category: Medical Code(s): I48.91 - Unspecified atrial fibrillation (3) Cardiac pacemaker in situ: Status: Chronic Category: Medical Code(s): Z95.0 - Presence of cardiac pacemaker (4) History of pulmonary embolism: Status: Chronic Category: Medical Code(s): Z86.711 - Personal history of pulmonary embolism (5) S/P IVC filter: Status: Acute Category: Surgical Code(s): Z95.828 - Presence of other vascular implants and grafts (6) Factor V Leiden: Status: Acute Category: Medical Code(s): D68.51 - Activated protein C resistance (7) ARIN (obstructive sleep apnea): Status: Chronic Category: Medical Code(s): G47.33 - Obstructive sleep apnea (adult) (pediatric) (8) Peripheral artery disease: Status: Acute Category: Medical Code(s): I73.9 - Peripheral vascular disease, unspecified Plan Chest Pain - uncertain etiology with normal serial trop, no acute ischemic chagnes on EKG, no wall motion changes on ECHO and normal coronaries on [facility] 2019 - ECHO shows new mild ascending aortic dilation at 4.3 cm - Pacemaker interrogation shows no events - Will check CTA for evaluation of dissection/AAA and to rule out new PE AAA - 4.3cm, new dx on ECHO in setting of acute 03/04 pain episode which has now resolved - check CTA HFImpEF - EF 32% in 2018, 55% 12/19/22, 55% here - [facility] 2019 - normal cors - Meds: Losartan, Farxiga, Metoprolol, Torsemide, Aldactone, Metolazone. - Fxn Status: Mostly in wheelchair. Daily BLE Edema improved with diuretics PAF/SSS s/p PPM >10 years ago at [facility], upgrade to [facility] 2023 - cont Eliquis - download here shows normal function, no events Factor V Leiden Mutation s/p PE w/thrombectomy and IVC filter placement - approx 2007 - pt failed Warfarin therapy (toxicity with rectal bleeding) - stable on Eliquis - CT 2022 shows IVC filter still in place. Verified with Woody - not an option to remove at this point, would destroy vessel Morbid Obesity BMI 42 with BLE Lymphedema and ARIN - weight is down from 280s - diuretics PRN, use CPAP - not a candidate for Bariatric surgery - consider GLP-1 Hx of Cancer - Breast, Rectal, Bone - in remission, fecal incontinence Chronic Venous Insufficiency with chronic BLE skin changes - leg elevation, compression stockings PAD, Chronically occluded [employer] - cont Eliquis, Statin *Pt has been stable since arrival. Uncertain etiology for her 10/10 chest pain. No indication of AR but she does have a new AAA on ECHO so will check CTA. Discussed the use of contrast with GFR 29 carries risk of renal injury. Pt is agreeable to fluid bolus and verbalizes understanding of risk. Further plans pending results.
[2024-03-22] MEDS: 0.9 % SODIUM CHLORIDE 1000ML 500 ML IV (14:00)
--- NOTE | 2024-03-22 14:36 | PC.NURSE ---
OFF UNIT FOR CTA
[2024-03-22] MEDS: SODIUM CHLORIDE 0.9% 10ML SYR (RAD ONLY) 10 ML IV (14:48)
[2024-03-22] MEDS: IOPAMIDOL-370 (76%);100ML BOTTLE 75 ML IV (14:48)
[2024-03-22] MEDS: 0.9 % SODIUM CHLORIDE 50 ML VIAL IV (14:48)
--- NOTE | 2024-03-22 16:00 | PC.NURSE ---
Reassessment completed at this time. No changes this shift. A/ox4. Lungs with bilat expiratory wheezing. Bowel sounds active x4. Denies pain. 1+ edema to bilateral knees. Redness noted to BIlateral lower legs. Pulses 2+. Plan is to d/c patient.
--- NOTE | 2024-03-22 16:12 | EXP.DC.SUM ---
General Admission date:: 03/21/24 Discharge date: 03/22/24 HPI HPI HPI: Ms. Alonzo is an 84-year-old female who lives by herself. Has a history of A-fib, pacemaker in situ, factor V Leiden, HFpEF, morbid obesity. She woke up this morning approximately 3 AM with acute onset of chest pain. She called her [id number] who came over to check on her. Pain was described as sharp in her chest. Had some nausea. States she felt like she needed to belch. Pain is 10 out of 10. Called EMS and they brought her to the ER for further management. Found to have elevated blood pressure on their initial evaluation. EKGs obtained that did not show any ischemic changes. Patient received 324 mg of aspirin and 2 doses of nitro spray. Pain improved to a 4 out of 10. Found to have improvement in her pain and blood pressure by arrival to the ER. Denies any vomiting, diarrhea, headache, confusion. No shortness of breath. Given her history and characterization of pain, medicine consulted for admission and further monitoring. On arrival to the floor, patient feeling somewhat better. Chest pain more or less resolved. Has had heart cath in the past, most recent per our records here 4 years ago with clean coronaries. Will monitor on telemetry. Initial troponin negative. O2 sats were 87% on arrival to the ER, currently on 2 L nasal cannula oxygen. Labs relatively unremarkable with normal white count, baseline kidney function stable. BNP marginally elevated at 884. Hospital Course Hospital Course Hospital Course: 84-year-old female who presented to the ER with acute onset of chest pain that woke her this morning. Concern for unstable angina. Discussed case with ER physician, request admission for further monitoring, serial labs, cardiology eval. I agreed to admit for further management. Heart score at least 5, necessitating admission and cardiology evaluation. Cardiology evaluate. CCTA obtained. Problems addressed as follows: Unstable angina Hypertension Hyperlipidemia -EKG reviewed, no ST changes, serial troponins negative. Found to have 4.3 cm AAA on echo. Evaluated for dissection, CTA with no dissection or PE. Uncertain etiology of chest pain however normal serial tropes. No ischemic changes. No wall motion abnormalities on echo and normal coronaries on left heart cath 2019. Pacemaker interrogation with no events. Stable since admission with no further pain. No indication of NE at this time. Follow-up with cardiology as an outpatient for further management and assessment. Monitored on telemetry. No events. Continue home regimen as follows: losartan 50 mg daily, metolazone 5 mg daily, metoprolol succinate 25 mg daily, spironolactone 25 mg daily, dapagliflozin 10 mg daily -Continue Crestor 20 mg daily, LDL controlled at 40. Factor 5 Leiden: History of PE. Continue Eliquis 5 mg twice daily. Morbid obesity, complicates all aspects of her care Stable discharge home. Exam Data for Last 24 hours Vital signs and Labs for Last 24 Hours: Temp Pulse Resp BP Pulse Ox O2 Del Method O2 Flow Rate 98.0 F 60 17 113/48 L 97 Room Air 2 03/22/24 07:58 03/22/24 13:00 03/22/24 13:00 03/22/24 13:00 03/22/24 13:00 03/22/24 13:59 03/21/24 07:31 Laboratory Results - last 24 hr 03/22/24 06:40: WBC 5.6 D, RBC 3.59 L, Hgb 11.4 L, Hct 35.7 L, MCV 99.4 H, MCH 31.9 H, MCHC 32.0, RDW 14.0, Plt Count 168, MPV 8.6, Neut % (Auto) 69.8, Lymph % (Auto) 20.3, [place] % (Auto) 7.0, Eos % (Auto) 2.1, Baso % (Auto) 0.8, Neut # (Auto) 3.9, Lymph # (Auto) 1.1, [place] # (Auto) 0.4, Eos # (Auto) 0.1, Baso # (Auto) 0.1, Sodium 138, Potassium 4.1, Chloride 103, Carbon Dioxide 29, Anion Gap 10.1, BUN 40 H D, Creatinine 1.70 H D, Estimated Creat Clear 23, Estimated GFR 29 L, Est GFR ( Amer) 35 L D, Glucose 105 H, Calcium 8.7, Magnesium 2.0, Total Bilirubin 0.6, AST 35 D, ALT 22, Alkaline Phosphatase 58, Total Protein 6.4, Albumin 3.7 D, Globulin 2.7, Albumin/Globulin Ratio 1.4, Triglycerides 57, Cholesterol 94 L, LDL Cholesterol Direct 40.59 L, VLDL Cholesterol 11, HDL Cholesterol 30 L, Cholesterol/HDL Ratio 3.1 I & O for Last 24 hours: Intake & Output 03/19/24 03/20/24 03/21/24 03/22/24 23:59 23:59 23:59 23:59 Intake Total 1090 / 1090 Balance 1090 / 1090 Weight 115.836 kg Constitutional Constitutional: no acute distress, morbidly obese and cooperative *Routine HEENT Exam Head: Present normocephalic Eye: Present EOMI and PERRL ENT: Present mucous membranes moist *Routine Neck Exam Neck: Present supple; Absent lymphadenopathy Routine Chest/Breast/Axilla Exam Chest wall: Absent tenderness *Routine Respiratory Exam Respiratory: Present CTA bilaterally; Absent rhonchi, wheezes or crackles *Routine Cardiovascular Exam Cardiovascular: Present RRR *Routine Abdominal Exam Abdominal: Present soft and normoactive bowel sounds; Absent tenderness *Routine Rectal Exam Patient deferred: visual exam *Routine Exam Patient deferred: external exam *Routine Extremities Exam Extremities: Present edema (trace BLE); Absent cyanosis or clubbing *Routine Skin Exam Skin: Present warm; Absent rash *Routine Neurological Exam Neurological: Present alert, oriented X3 and moving all extremities; Absent altered mental status Results Data Completed and Pending Labs on day of discharge: Labs from last 24 hours 03/22/24 06:40 WBC 5.6 D RBC 3.59 L Hgb 11.4 L Hct 35.7 L MCV 99.4 H MCH 31.9 H MCHC 32.0 RDW 14.0 Plt Count 168 MPV 8.6 Neut % (Auto) 69.8 Lymph % (Auto) 20.3 [place] % (Auto) 7.0 Eos % (Auto) 2.1 Baso % (Auto) 0.8 Neut # (Auto) 3.9 Lymph # (Auto) 1.1 [place] # (Auto) 0.4 Eos # (Auto) 0.1 Baso # (Auto) 0.1 Sodium 138 Potassium 4.1 Chloride 103 Carbon Dioxide 29 Anion Gap 10.1 BUN 40 H D Creatinine 1.70 H D Estimated Creat Clear 23 Estimated GFR 29 L Est GFR ( Amer) 35 L D Glucose 105 H Calcium 8.7 Magnesium 2.0 Total Bilirubin 0.6 AST 35 D ALT 22 Alkaline Phosphatase 58 Total Protein 6.4 Albumin 3.7 D Globulin 2.7 Albumin/Globulin Ratio 1.4 Triglycerides 57 Cholesterol 94 L LDL Cholesterol Direct 40.59 L VLDL Cholesterol 11 HDL Cholesterol 30 L Cholesterol/HDL Ratio 3.1 DS: Diagnosis Discharge Diagnosis (1) Chest pain: Status: Acute Code(s): R07.9 - Chest pain, unspecified (2) Atrial fibrillation: Status: Chronic Code(s): I48.91 - Unspecified atrial fibrillation Qualifiers: Atrial fibrillation type: unspecified chronic Qualified Code(s): I48.20 - Chronic atrial fibrillation, unspecified (3) Cardiac pacemaker in situ: Status: Chronic Code(s): Z95.0 - Presence of cardiac pacemaker (4) History of pulmonary embolism: Status: Chronic Code(s): Z86.711 - Personal history of pulmonary embolism (5) S/P IVC filter: Status: Acute Code(s): Z95.828 - Presence of other vascular implants and grafts (6) Factor V Leiden: Status: Acute Code(s): D68.51 - Activated protein C resistance (7) ARIN (obstructive sleep apnea): Status: Chronic Code(s): G47.33 - Obstructive sleep apnea (adult) (pediatric) (8) Peripheral artery disease: Status: Acute Code(s): I73.9 - Peripheral vascular disease, unspecified Meds Home Medications and Allergies Home Medications ?Medication ?Instructions ?Recorded ?Confirmed ?Type albuterol sulfate 90 mcg/actuation 2 puff inhalation Q6H PRN 12/31/23 03/21/24 Rx aerosol inhaler shortness of breath or wheezing #8.5 grams betamethasone dipropionate 0.05 % 1 applic topical BID PRN skin 02/02/24 03/21/24 Rx topical cream irritation #45 grams nystatin-triamcinolone 100,000 1 applic topical TID PRN Buttock 02/02/24 03/21/24 Rx unit/g-0.1 % topical cream irritation #60 grams apixaban 5 mg tablet (Eliquis) 5 mg PO BID #180 tabs 02/06/24 03/21/24 Rx cholecalciferol (vitamin D3) 25 2,000 unit PO ONCE Supplement #90 02/06/24 03/21/24 Rx mcg (1,000 unit) capsule caps dapagliflozin propanediol 10 mg 10 mg PO DAILY 90 days #90 tabs 02/06/24 03/21/24 Rx tablet (Farxiga) levothyroxine 112 mcg tablet 112 mcg PO DAILY #90 tabs 02/06/24 03/21/24 Rx metoprolol succinate 25 mg 25 mg PO DAILY #90 tabs 02/06/24 03/21/24 Rx tablet,extended release 24 hr (Toprol XL) spironolactone 25 mg tablet 25 mg PO DAILY #90 tabs 02/06/24 03/21/24 Rx triamcinolone acetonide 0.1 % 1 applic topical TID PRN 02/12/24 03/21/24 Rx topical cream Dermatitis on legs #453.6 grams anastrozole 1 mg tablet 1 mg PO DAILY 03/22/24 03/22/24 History losartan 50 mg tablet 50 mg PO DAILY 03/22/24 03/22/24 History metolazone 5 mg tablet 5 mg PO MOWEFR 03/22/24 03/22/24 History rosuvastatin 20 mg tablet 20 mg PO HS 03/22/24 03/22/24 History New Prescriptions to Start Prescriptions: Allergies Allergy/AdvReac Type Severity Reaction Status Date / Time atropine [From ] Allergy Unknown Verified 02/12/24 11:43 hyoscyamine [From ] Allergy Unknown Verified 02/12/24 11:43 lidocaine [LIDOCAINE] Allergy Unknown I-RASH Verified 02/12/24 11:43 metaxalone [METAXALONE] Allergy Unknown I-RASH Verified 02/12/24 11:43 morphine [MORPHINE] Allergy Unknown I-RASH Verified 02/12/24 11:43 oxycodone [OXYCODONE] Allergy Unknown I-RASH Verified 02/12/24 11:43 oxytetracycline Allergy Unknown I-RASH Verified 02/12/24 11:43 [From TERRAMYCIN] phenobarbital [From ] Allergy Unknown Verified 02/12/24 11:43 scopolamine [From ] Allergy Unknown Verified 02/12/24 11:43 Sulfa (Sulfonamide Allergy Unknown I-RASH Verified 02/12/24 11:43 Antibiotics) [SULFA (SULFONAMIDE ANTIBIOTICS)] Discharge Plan Disposition Patient Disposition: Home, Self-Care Condition: Fair Follow up Plan Follow up with: Jose Bernal MD [Primary Care Provider] - 03/31/24 1:00 pm Houston Johnson MD [Staff Physician] - Enter time for follow up Prescriptions/Medication Reconciliation: Continued triamcinolone acetonide 0.1 % cream 1 applic topical TID PRN (Reason: Dermatitis on legs) Qty: 453.6 0RF albuterol sulfate 90 mcg/actuation HFA aerosol inhaler 2 puff inhalation Q6H PRN (Reason: shortness of breath or wheezing) Qty: 8.5 2RF betamethasone dipropionate 0.05 % cream 1 applic topical BID PRN (Reason: skin irritation) Qty: 45 5RF nystatin-triamcinolone 100,000-0.1 unit/g-% cream 1 applic topical TID PRN (Reason: Buttock irritation) Qty: 60 3RF Eliquis 5 mg tablet 5 mg PO BID Qty: 180 1RF cholecalciferol (vitamin D3) 25 mcg (1,000 unit) capsule 2,000 unit PO ONCE Qty: 90 1RF dapagliflozin propanediol [Farxiga] 10 mg tablet 10 mg PO DAILY 90 Days Qty: 90 1RF levothyroxine 112 mcg tablet 112 mcg PO DAILY Qty: 90 1RF metoprolol succinate [Toprol XL] 25 mg tablet extended release 24 hr 25 mg PO DAILY Qty: 90 1RF spironolactone 25 mg tablet 25 mg PO DAILY Qty: 90 1RF losartan 50 mg tablet 50 mg PO DAILY Rx Instructions: TAKE 1 TABLET EVERY DAY anastrozole 1 mg tablet 1 mg PO DAILY Rx Instructions: TAKE 1 TABLET EVERY DAY metolazone 5 mg tablet 5 mg PO MOWE Rx Instructions: Take one tab on MON/WED/FRI only rosuvastatin 20 mg tablet 20 mg PO HS Problem Reconciliation Problems Reviewed?: Yes Patient Discharge Instructions ACTIVITY: Continue current activity DIET: continue same diet Patient Instructions: DI for Angina Print Language: Mongolian Providers Primary Care Provider: Jose Bernal Admit Provider: Christiano Enriquez Attending Provider: Christiano Enriquez
[2024-03-23 05:10] LABS: HCV Ab Non Reactive (Non Reactive)
--- NOTE | 2024-03-23 13:03 | SW/DCPLANNER ---
Hospital follow up phone call: patient stated that she is doing well at home. Patient is aware of follow up appointment w/ PCP and plans to make contact w/ Cardiology today. Patient did not have any further questions/needs at this time.
== END 2024-03-22 18:00 | disposition home or self-care (01) ==
LOC: ER 08:06 → 2ND 09:03 → OB 18:20
PROVIDERS: Emergency Medicine; Admitting Provider Internal Medicine Adolescent Medicine; Emergency Provider Emergency Medicine; PCP Internal Medicine; Visit Provider Internal Medicine Adolescent Medicine
DX: I20.0 Unstable angina (principal); I11.0 Hypertensive heart disease with heart failure; E78.2 Mixed hyperlipidemia; I48.0 Paroxysmal atrial fibrillation; Z95.0 Presence of cardiac pacemaker; Z86.711 Personal history of pulmonary embolism; I70.203 Unspecified atherosclerosis of native arteries of extremities, bilateral legs; I89.0 Lymphedema, not elsewhere classified; I87.2 Venous insufficiency (chronic) (peripheral); D68.51 Activated protein C resistance; I50.33 Acute on chronic diastolic (congestive) heart failure; Z95.828 Presence of other vascular implants and grafts; G47.33 Obstructive sleep apnea (adult) (pediatric); E66.01 Morbid (severe) obesity due to excess calories; Z68.41 Body mass index [BMI] 40.0-44.9, adult; Z79.899 Other long term (current) drug therapy; I42.9 Cardiomyopathy, unspecified; I49.5 Sick sinus syndrome; Z79.01 Long term (current) use of anticoagulants
CPT/HCPCS: 36415; 71045; 71275; 80053; 80061; 83735; 83880; 84484; 85025; 85378; 86803; 87389; 93005; 93306; 99285; G0378; J1940; J2405; J7030; Q9967

== ENCOUNTER 2024-03-31 14:03 | Outpatient (CLI) | payer MEDICARE, MEDICAID, SELFPAY ==
[2024-03-31 15:01] LABS: Chloride 102 mmol/L (98-107)
[2024-03-31 15:02] LABS: Potassium 4.3 mmoL/L (3.5-5.1); Sodium 139 mmol/L (136-145)
[2024-03-31 15:04] LABS: Blood Urea Nitrogen 25 mg/dl (7-17); Estimated Glomerular Filt Rate 47 ml/min (>60); GFR (African American) 57 ML/MIN (>60)
[2024-03-31 15:05] LABS: Anion Gap 10.3 mEq/L (5-15); Calcium 9.3 mg/dl (8.4-10.2); Carbon Dioxide 31 mmol/L (22.0-30.0); Glucose 133 mg/dl (74-100)
[2024-03-31 15:33] LABS: Thyroid Stimulating Hormone 4.63 uIU/mL (0.465-4.68)
[2024-03-31 15:33] LABS: Occult Blood,Stool Negative (Negative)
== END 2024-03-31 23:59 | disposition home or self-care (01) ==
PROVIDERS: PCP Internal Medicine; Visit Provider Internal Medicine
DX: I10 Essential (primary) hypertension (principal); I50.32 Chronic diastolic (congestive) heart failure; E03.9 Hypothyroidism, unspecified; K92.1 Melena
CPT/HCPCS: 36415; 80048; 82272; 84443; G0328

== ENCOUNTER 2024-04-01 11:40 | Outpatient (CLI) | payer MEDICARE, MEDICAID, SELFPAY ==
[2024-04-01 11:56] LABS: Basophils # 0.1 K/mm3 (0-0.2); Basophils % 0.7 % (0.1-2.0); Eosinophils # 0.2 K/mm3 (0.0-0.4); Eosinophils % 2.4 % (0.1-12.0); Hematocrit 35.8 % (37.0-47.0); Hemoglobin 11.9 g/dL (12.2-16.2); Lymphocytes # 0.8 K/mm3 (0.7-4.5); Lymphocytes % 12.7 % (10-50); Mean Corpuscular HGB Conc 33.3 g/dL (31.8-35.4); Mean Corpuscular Hemoglobin 32.7 pg (27.0-31.2); Mean Corpuscular Volume 98.2 fl (81-99); Mean Platelet Volume 8.5 fl (7.4-10.4); Monocytes # 0.5 K/mm3 (0.1-1.0); Neutrophils % 77.2 % (37.0-80.0); Platelet Count 200 K/mm3 (142-424); Red Blood Count 3.64 M/mm3 (4.20-5.40); Red Cell Distribution Width 13.9 % (11.5-17.5); White Blood Count 6.5 K/mm3 (4.8-10.8)
[2024-04-01 12:40] LABS: Albumin Level 3.9 g/dl (3.5-5.0)
[2024-04-01 12:43] LABS: Alanine Aminotransferase 15 U/L (12-78); Alkaline Phosphatase 64 U/L (38-126); Aspartate Amino Transferase 23 U/L (14-36); Bilirubin,Direct 0.1 mg/dl (0.0-0.4); Bilirubin,Indirect 0.5 mg/dL (0.0-0.9); Bilirubin,Total 0.6 mg/dl (0.2-1.3); Bilirubin,Unconjugated 0.5 mg/dL (0.0-1.1); Total Protein,Serum 6.7 g/dl (6.3-8.2)
[2024-04-01 12:44] LABS: Chol/HDL Ratio 3.2 (1-3.5); Cholesterol 110 mg/dl (140-200); HDL Cholesterol 34 mg/dl (40-60); Triglycerides 97 mg/dl (30-150); VLDL Cholesterol 19 mg/dL (0-40)
[2024-04-01 12:55] LABS: Direct LDL Cholesterol 48.98 mg/dL (100-129)
== END 2024-04-01 23:59 | disposition home or self-care (01) ==
LOC: LAB 11:42
PROVIDERS: PCP Internal Medicine; Visit Provider Internal Medicine
DX: I10 Essential (primary) hypertension (principal); R07.9 Chest pain, unspecified; E78.2 Mixed hyperlipidemia
CPT/HCPCS: 36415; 80061; 80076; 85025

== ENCOUNTER 2024-04-07 11:12 | Outpatient (CLI) | payer MEDICARE, MEDICAID, SELFPAY ==
--- NOTE | 2024-04-07 | CA_ITS ---
APPROVED REPORT Exam: Pharmacologic Technologist: Jennifer Morales Ht: 5 ft 8 in Wt: 260 lbs BSA: 2.28 m2 HR: 70 bpm BP: 156/67 mmHg Stress Test Details Test: Lexiscan Reason for pharmacologic stress test: physical limitation. HR Resting HR: 70 bpm Max Heart Rate (APMHR): 136 bpm Max HR Achieved: 75 bpm Target HR (85% APMHR): 116 bpm % of APMHR: 55 Recovery HR: 70 bpm BP Resting BP: 156.0/67.0 mmHg Max BP: 156.0/67.0 mmHg Recovery BP: 144.0/62.0 mmHg ECG Resting ECG: Electronic ventricular Pacemaker Stress ECG Conclusion Symptoms: Slight headache. No CP. Arrhythmias/Ectopy: None ST-T Changes: No significant changes. Conclusion: Unremarkable Lexiscan stress. Electronically signed by : Lisa Johnson MD 04/08/2024 13:02:51
--- NOTE | 2024-04-07 11:12 | NM_ITS ---
APPROVED REPORT Exam: Nuclear Stress Test Indication: chf, htn, hyperlipidemia, fm hx, c.p., sob, palpitations Patient Location: Outpatient Stress Tech: Jennifer [facility] Tech:GEOVANNI Cummings RT (R)(N)(M) Ht: 5 ft 8 in Wt: 260 lbs Bra Size: 54ddd HR: 70 bpm BP: 156/67 mmHg BSA: 2.28 m2 TID: 1.11 BMI: 39.5 History: chf, htn, hyperlipidemia, fm hx, c.p., sob, palpitations patient could not lay on stomach for prone images. Procedure: Patient received 0.4 mg of intravenous Lexiscan, resting heart rate 70 bpm, resting blood pressure 156/67 mmHg, with Lexiscan maximum heart rate achieved was 75 bpm which is % of the maximum predicted heart rate and blood pressure was 148/61 mmHg. With Lexiscan, patient denied any complaint of chest pain. Cardiac Stress and Resting SPECT Images: Cardiac Stress and Resting SPECT images were obtained using technetium 99m Myoview 31.4 mCi stress and 10.22 mCi at rest. The patient could not lie on her abdomen. Therefore, prone stress imaging could not be performed. This may affect the diagnostic interpretation of the study findings. Resting and stress imaging in supine positions demonstrate a medium sized, mild, fixed perfusion defect in the basal to mid lateral LV wall. Gated imaging demonstrates normal global and regional LV systolic function. LVEF is calculated at 68%. Conclusion: Medium sized, mild, fixed perfusion defect in the basal to mid lateral LV wall. No evidence of reversible ischemia. Gated imaging demonstrates normal global and regional LV systolic function. LVEF is calculated at 68%. Electronically signed by : Lisa Johnson MD 04/08/2024 13:06:47
[2024-04-07] MEDS: SODIUM CHLORIDE 0.9% 10ML SYR (RAD ONLY) 10 ML IV ×2 (12:00→13:40)
[2024-04-07] MEDS: REGADENOSON 0.4MG/5ML SYRINGE 0.4 MG IV (13:40)
[2024-04-07] MEDS: ISOTOPE MYOVIEW (PER STUDY) 1 DOSE IV (14:40)
== END 2024-04-07 23:59 | disposition home or self-care (01) ==
LOC: RAD 11:12
PROVIDERS: PCP Internal Medicine; Visit Provider Internal Medicine
DX: R07.9 Chest pain, unspecified (principal); I10 Essential (primary) hypertension; E78.2 Mixed hyperlipidemia
CPT/HCPCS: 78452; 93017; 93018; A9502; J2785

== ENCOUNTER 2024-07-20 12:34 | Outpatient (CLI) | payer MEDICARE, MEDICAID, SELFPAY ==
[2024-07-20 12:48] LABS: Basophils % 0.5 % (0.1-2.0); Eosinophils # 0.2 K/mm3 (0.0-0.4); Eosinophils % 1.8 % (0.1-12.0); Hematocrit 36.1 % (37.0-47.0); Hemoglobin 11.4 g/dL (12.2-16.2); Lymphocytes # 1.5 K/mm3 (0.7-4.5); Lymphocytes % 17.8 % (10-50); Mean Corpuscular HGB Conc 31.6 g/dL (31.8-35.4); Mean Corpuscular Hemoglobin 31.4 pg (27.0-31.2); Mean Corpuscular Volume 99.4 fl (81-99); Mean Platelet Volume 10.3 fl (7.4-10.4); Monocytes # 0.7 K/mm3 (0.1-1.0); Monocytes % 8.6 % (1.7-9.3); Neutrophils % 70.8 % (37.0-80.0); Platelet Count 173 K/mm3 (142-424); Red Blood Count 3.63 M/mm3 (4.20-5.40); Red Cell Distribution Width 13.9 % (11.5-17.5); White Blood Count 8.4 K/mm3 (4.8-10.8)
[2024-07-20 14:11] LABS: Alanine Aminotransferase 21 U/L (12-78); Albumin Level 3.9 g/dl (3.5-5.0); Alkaline Phosphatase 54 U/L (38-126); Anion Gap 2.4 mEq/L (5-15); Aspartate Amino Transferase 32 U/L (14-36); Bilirubin,Direct 0.4 mg/dl (0.0-0.4); Bilirubin,Indirect 0.1 mg/dL (0.0-0.9); Bilirubin,Total 0.5 mg/dl (0.2-1.3); Bilirubin,Unconjugated 0.2 mg/dL (0.0-1.1); Blood Urea Nitrogen 18 mg/dl (7-17); Calcium 9.3 mg/dl (8.4-10.2); Carbon Dioxide 29 mmol/L (22.0-30.0); Chloride 107 mmol/L (98-107); Chol/HDL Ratio 3.6 (1-3.5); Cholesterol 150 mg/dl (140-200); Estimated Glomerular Filt Rate 53 ml/min (>60); GFR (African American) 64 ML/MIN (>60); Glucose 100 mg/dl (74-100); HDL Cholesterol 42 mg/dl (40-60); Magnesium 1.7 mg/dl (1.6-2.3); Potassium 4.4 mmoL/L (3.5-5.1); Total Protein,Serum 6.6 g/dl (6.3-8.2); Triglycerides 121 mg/dl (30-150); VLDL Cholesterol 24 mg/dL (0-40)
[2024-07-20 14:15] LABS: Sodium 134 mmol/L (136-145)
[2024-07-20 14:22] LABS: Direct LDL Cholesterol 69.01 mg/dL (100-129)
[2024-07-20 14:28] LABS: Free T4 (Free Thyroxine) 1.05 ng/dl (0.78-2.19)
[2024-07-20 14:41] LABS: Thyroid Stimulating Hormone 4.61 uIU/mL (0.465-4.68)
== END 2024-07-20 23:59 | disposition home or self-care (01) ==
LOC: LAB 12:35
PROVIDERS: PCP Internal Medicine; Visit Provider Internal Medicine
DX: I10 Essential (primary) hypertension (principal); G47.33 Obstructive sleep apnea (adult) (pediatric); R94.31 Abnormal electrocardiogram [ECG] [EKG]; R06.00 Dyspnea, unspecified
CPT/HCPCS: 36415; 80048; 80061; 80076; 83735; 84439; 84443; 85025; 94762

== ENCOUNTER 2024-09-15 13:34 | Outpatient (CLI) | payer MEDICARE, MEDICAID, SELFPAY ==
--- NOTE | 2024-09-15 | US_ITS ---
FINAL REPORT CLINICAL HISTORY: PVD, PAD, HTN, HLD FINDINGS: ANKLE-BRACHIAL PRESSURE INDICES Pressure indices are as follows: RIGHT LOWER EXTREMITY: Ankle-brachial pressure index: 1.21 Comments: Normal LEFT LOWER EXTREMITY: Ankle-brachial pressure index: 0.90 Comments: Novc-yd-zguuafpi disease IMPRESSION: No evidence of significant obstructive peripheral vascular disease of the right lower extremity. Whuy-el-foixmwip peripheral vascular disease of the left lower extremity. Reviewed, Interpreted and Dictated by Mary Abreu MD Transcribed by Anabel Velez Authenticated and [facility]
== END 2024-09-15 23:59 | disposition home or self-care (01) ==
LOC: RT 13:35
PROVIDERS: PCP Internal Medicine; Visit Provider Nurse Practitioner
DX: I73.9 Peripheral vascular disease, unspecified (principal); R09.89 Other specified symptoms and signs involving the circulatory and respiratory systems
CPT/HCPCS: 93923

== ENCOUNTER 2024-09-27 08:43 | Outpatient (CLI) | payer MEDICARE, MEDICAID, SELFPAY ==
[2024-09-27 19:15] LABS: Basophils % 0.4 % (0.1-2.0); Eosinophils # 0.1 Kmm3 (0.0-0.4); Hematocrit 38.6 % (37.0-47.0); Hemoglobin 12.2 g/dL (12.2-16.2); Lymphocytes # 1.1 K/mm3 (0.7-4.5); Lymphocytes % 16.1 % (10-50); Mean Corpuscular HGB Conc 31.6 g/dL (31.8-35.4); Mean Corpuscular Volume 101.3 fl (81-99); Monocytes # 0.7 K/mm3 (0.1-1.0); Monocytes % 9.9 % (1.7-9.3); Neutrophils # 4.9 K/mm3 (1.8-7.8); Neutrophils % 71.5 % (37.0-80.0); Nucleated Red Blood Cells # 0 10^3/uL; Nucleated Red Blood Cells % 0 %; Platelet Count 220 K/mm3 (142-424); Red Blood Count 3.81 M/mm3 (4.20-5.40); Red Cell Distribution Width 13.9 % (11.5-17.5); Red Cell Distribution Width-SD 51.5 fL; White Blood Count 6.8 K/mm3 (4.8-10.8)
[2024-09-27 20:15] LABS: Albumin Level 4.1 g/dl (3.5-5.0); Chloride 103 mmol/L (98-107); Potassium 3.9 mmoL/L (3.5-5.1); Sodium 139 mmol/L (136-145)
[2024-09-27 20:18] LABS: Alanine Aminotransferase 15 U/L (12-78); Albumin/Globulin Ratio 1.5 (1.1-1.8); Alkaline Phosphatase 70 U/L (38-126); Anion Gap 9.9 mEq/L (5-15); Aspartate Amino Transferase 25 U/L (14-36); Bilirubin,Total 0.4 mg/dl (0.2-1.3); Blood Urea Nitrogen 24 mg/dl (7-17); Calcium 9.7 mg/dl (8.4-10.2); Carbon Dioxide 30 mmol/L (22.0-30.0); Cholesterol 135 mg/dl (140-200); Estimated Glomerular Filt Rate 43 ml/min (>60); GFR (African American) 52 ML/MIN (>60); Globulin 2.8 g/dL (1.3-3.2); Glucose 75 mg/dl (74-100); HDL Cholesterol 45 mg/dl (40-60); Total Protein,Serum 6.9 g/dl (6.3-8.2); Triglycerides 90 mg/dl (30-150); VLDL Cholesterol 18 mg/dL (0-40)
[2024-09-27 20:31] LABS: Direct LDL Cholesterol 59.65 mg/dL (100-129)
[2024-09-27 21:02] LABS: Thyroid Stimulating Hormone 4.65 uIU/mL (0.465-4.68)
== END 2024-09-27 23:59 ==
LOC: LAB.DROPOF 09-29 08:43
PROVIDERS: PCP Internal Medicine; Visit Provider Internal Medicine
DX: E78.2 Mixed hyperlipidemia (principal); E03.9 Hypothyroidism, unspecified; I11.0 Hypertensive heart disease with heart failure; I50.32 Chronic diastolic (congestive) heart failure
CPT/HCPCS: 80053; 80061; 84443; 85025

== ENCOUNTER 2024-10-14 12:40 | Outpatient (CLI) | payer MEDICARE, MEDICAID, SELFPAY ==
--- NOTE | 2024-10-14 13:00 | CT_ITS ---
FINAL REPORT CLINICAL HISTORY: see BLE Lower bilateral knee-ankle discoloration. pt states that the feet used to be discolored but are not now COMPARISON: None FINDINGS: CT ABDOMEN, CT PELVIS, CTA ABDOMEN, CTA PELVIS AND CTA LOWER EXTREMITY RUNOFF COMPARISON: TECHNIQUE: Thin section axial CT with IV contrast supplemented with 3D MIP reconstruction under CT Angiogram protocol This study was performed with techniques to keep radiation doses as low as reasonably achievable, (ALARA). Individualized dose reduction techniques using automated exposure control or adjustment of mA and/or kV according to the patient''s size were employed. FINDINGS: CT ANGIOGRAM ABDOMEN AND PELVIS: The exam begins at the aortic bifurcation. The aortic bifurcation, common and external iliac vessels are unremarkable. The internal iliac vessels are patent. CTA RIGHT LOWER EXTREMITY: The femoral and popliteal vessels showed no significant stenosis or occlusion. There is occlusion of the right posterior tibial artery proximally with reconstitution of the artery just above the ankle. The dorsalis pedis artery is occluded in the hindfoot. CTA LEFT LOWER EXTREMITY: The femoral and popliteal vessels show no significant stenosis or occlusion. There is three-vessel runoff to the hindfoot. There is occlusion of the posterior tibial artery at the hindfoot. No focal mass is identified in either lower extremity. IMPRESSION: There is mild distal peripheral vascular disease as described, without significant vascular disease in the distal aorta iliac vessels, nor in the femoral or popliteal vessels. This study was performed using automated techniques to achieve radiation exposure as low as reasonably achievable Reviewed, Interpreted and Dictated by Vanesa Dixon MD Transcribed by Nay Vicente Authenticated and [facility]
[2024-10-14] MEDS: SODIUM CHLORIDE 0.9% 10ML SYR (RAD ONLY) 10 ML IV (13:56)
[2024-10-14] MEDS: 0.9 % SODIUM CHLORIDE 50 ML VIAL 100 ML IV (13:56)
[2024-10-14] MEDS: IOPAMIDOL-370 (76%);100ML BOTTLE 120 ML IV (13:56)
== END 2024-10-14 23:59 | disposition home or self-care (01) ==
LOC: RAD 12:41
PROVIDERS: PCP Internal Medicine; Visit Provider Internal Medicine
DX: L81.9 Disorder of pigmentation, unspecified (principal); R68.89 Other general symptoms and signs; I73.9 Peripheral vascular disease, unspecified; R60.0 Localized edema
CPT/HCPCS: 75635; Q9967

== ENCOUNTER 2025-01-03 10:03 | Outpatient (RCR) | payer MEDICARE, MEDICAID, SELFPAY ==
--- NOTE | 2025-01-03 17:20 | HMH.OPLYMPH ---
Rehab Inpt Wound Evaluation Rehab OP Lymphedema Evaluation Start: 01/03/25 17:01 Freq: Status: Active Protocol: Document 01/03/25 17:02 LANDEN (Rec: 01/03/25 17:20 PHOMICA [id number]) E-signed By Jan Nichols, PT Subjective/History History History This is the initial PT lymphedema eval for Sofía Alonzo, 84-year-old female with past medical history of hypertension, chronic diastolic congestive heart failure, chronic venous insufficiency/lymphedema, venous stasis dermatitis, radiation proctitis, chronic urinary incontinence, yeast intertrigo, hyperlipidemia, cardiac pacemaker for treatment of sick sinus syndrome , paroxysmal atrial fibrillation, history of IVC filter , factor V Leiden, degenerative arthritis, obstructive sleep apnea, morbid obesity, intermittent asthma, history of DVT, hypothyroidism, small vessel arterial disease, and history of breast and anal cancers. She reports increased edema that fluctuates for many years, but was worse for the past several mos. She reports her edema has decreased over the past week due to taking the diuretic medications she was prescribed by her physician. She is concerned about the papillomas that are present on her lower legs B, btu she reports no c/o pain or tenderness at this time. Subjective Subjective No pain, 0/10, or TTP noted in B lower legs. Moderate lipodermartosclerosis with significant increased erythema and hemosiderin staining noted. Most recen GAVIN shows mild to moderate LE PAD. Lymphedema Eval Classification of Lymphedema Secondary Lymphedema Yes Stemmer's sign Stemmer's Sign no Stage of Lymphedema Lymphedema stages Stage II (Pitting edema, increased fibrosis w/ decreased pitting) Skin Changes Dry Skin Yes Taut, Shiny Skin Yes Papillomatosis Yes Redness Yes Wounds Yes Discoloration of Yes Skin Other Changes Yes Radiation Therapy Has received yes radiation therapy Chemo Therapy Has received chemo yes therapy Affected Extremities Areas Affected by Right Lower Extremity,Left Lower Extremity Lymphedema/Edema Lower Extremity Measurements Right MTP Measurement (cm) 24.3 Heel Measurement (cm 34.0 ) 10 cm Proximal to 28.4 Lateral Malleoli Measurement (cm) 20 cm Proximal to 35.8 Lateral Malleoli Measurement (cm) 30 cm Proximal to 47.6 Lateral Malleoli Measurement (cm) 40 cm Proximal to 0 Lateral Malleoli Measurement (cm) 50 cm Proximal to 0 Lateral Malleoli Measurement (cm) 60 cm Proximal to 0 Lateral Malleoli Measurement (cm) Lower Extremity 170.1 Measurement Total ( cm) Left MTP Measurement (cm) 23.5 Heel Measurement (cm 34.5 ) 10 cm Proximal to 27.5 Lateral Malleoli Measurement (cm) 20 cm Proximal to 35.0 Lateral Malleoli Measurement (cm) 30 cm Proximal to 48.9 Lateral Malleoli Measurement (cm) 40 cm Proximal to 0 Lateral Malleoli Measurement (cm) 50 cm Proximal to 0 Lateral Malleoli Measurement (cm) 60 cm Proximal to 0 Lateral Malleoli Measurement (cm) Lower Extremity 169.4 Measurement Total ( cm) Manual Lymphatic Drainage Treatment Area MLD Treatment Area Right Lower Extremity,Left Lower Extremity Wound Problems/Impairments Impairments Problems/ Impaired Endurance,Impaired Transfers,Impaired Gait Impairmments Pattern,Impaired Walking,Impaired Standing,Impaired Household Care,Lymphedema Present,Impaired Self Care/ Self Management Prognosis Rehab Potential Good Comment Skilled therapy is indicated in order to aid pt reduction of overall B LE lymphedema in order to improve her overall QOL. Clinical Impression Consistent with Yes Diagnosis Lymphedema Patient Goals Lymphedema Patient Goals Lymphedema Short In 2 wks pt will: Term Patient Goals 1) Reduce circumferential measurements to B LE by 3 cm ea Lymphedema Television Tube Inspector In 4 wks pt will: Patient Goals 1) Reduce circumferential measurements to B LE by 6 cm ea 2) Reduce edema to NO pitting edema to B LE 3) Reduce edema to NO fibrotic edema in B LE 4) Be independent with donning/doffing compression garments Outpatient Therapy Plan of Care Treatment Plan May Include Therapeutic Exercise Yes Including Home Exercise Program Manual Therapy Yes Techniques Neuromuscular Re- Yes education Therapeutic Yes Activities to Return to Previous Functional/Work Level ADL/Self Care Yes Education Orthotics/Bracing/ Yes Splinting Manual Lymphatic Yes Drainage Eval/Re-Eval Yes Frequency Times per week 1 Duration Number of Weeks 4 Addendums This patient is a No candidate for social or vocational rehab ? Patient/Guardian Yes verbally acknowledges understanding of treatment program and consents to further treatment? Patient/Guardian Yes verbally acknowledges understanding of diagnosis, prognosis and goals for treatment? Eval Complexity PT Charges 07713 - High Complexity PHYSICIAN CERTIFICATION: I certify the specified therapy services for Sofía Haro Alonzo are required, authorized, and reviewed every 30 days.
== END 2025-01-03 23:59 | disposition home or self-care (01) ==
LOC: PT 10:03
PROVIDERS: PCP Internal Medicine; Visit Provider Nurse Practitioner
DX: I87.2 Venous insufficiency (chronic) (peripheral) (principal); I89.0 Lymphedema, not elsewhere classified
CPT/HCPCS: 97140; 97163

== ENCOUNTER 2025-03-08 12:52 | Outpatient (CLI) | payer MEDICARE, MEDICAID, SELFPAY ==
--- OUTSIDE RECORDS SUMMARY | 2025-03-08 12:54 | XMS_ITS | Encounter Summary ---
Author Organization Healthcare Address [address] [place] [address] Care Team Providers Care Mutton Puncher Name Role Phone Jsoe Bernal MD Primary Care Provider [phone] Encounter Details Date Type Department Care Team ([facility] st Contact Info) Description 03/22/2024 Orders Only External Location [address] [place] [address] Provider, External Social History Tobacco Use Types Packs/Day Years Used Date Smoking Tobacco: Never Assessed Comments Unknown Sex and Gender Information Value Date Recorded Sex Assigned at Not on file Legal Sex Female 8:48 PM EDT Gender Identity Not on file Sexual Orientation Not on file documented as of this encounter Plan of Treatment Not on file documented as of this encounter Procedures Procedure Name Priority Date/Time Associated Diagnosis Comments CT THORACIC OUTSIDE IMAGES 03/22/2024 2:36 PM EDT documented in this encounter Results * CT THORACIC OUTSIDE IMAGES (03/22/2024 2:36 PM EDT) Anatomical Region Laterality Modality Computed Tomogra phy 03/22/2024 2:36 PM EDT us External Provider IMG CT PROCEDURES Final Result documented in this encounter Visit Diagnoses Not on filedocumented in this encounter Care Teams Mutton Puncher Relationship Specialty Start Date End Date Jose Bernal MD [address] [facility] [address] [place] [id number] PCP - General 12/07/24 documented as of this encounter
--- OUTSIDE RECORDS SUMMARY | 2025-03-08 12:54 | XMS_ITS | Clinical Summary ---
Author Organization [facility] Address [address] [place] [id number] Care Team Providers Care Tongsman Name Role Phone Jose Bernal MD Primary Care Provider [phone] Allergies Active Allergy Reactions Criticality Noted Date Comments Lidocaine Rash Low 12/04/2015 Metaxalone Rash Low 12/04/2015 Morphine And Codeine Rash Low 12/04/2015 Oxycodone-Acetaminophen Rash Low 12/04/2015 Oxytetracycline Rash Low 12/04/2015 Bc-Sljbre-Thtbtsba-Scopolamine Rash Low 12/03 Sulfa Drugs Rash Low 12/04/2015 Medications anastrozole (Arimidex) 1 MG chemo tablet Take 1 tablet (1 mg total) by mouth daily. 5 Active Eliquis 5 MG tablet Take 1 tablet by mouth 2 times a day. 5 Active Farxiga 10 MG tablet 5 Active rosuvastatin (Crestor) 20 MG tablet Take 1 tablet by mouth nightly. 5 Active metoprolol succinate XL (Toprol-XL) 25 MG 24 hr tablet Take 1 tablet by mouth daily. 5 Active losartan (Cozaar) 50 MG tablet Take 1.5 tablets by mouth daily. 5 Active famotidine (Pepcid) 20 MG tablet Take 1 tablet by mouth daily. 5 Active topiramate 50 MG tablet 1 tablet. 5 Active alpha tocopherol (Vitamin E) 1000 units capsule Take 1 capsule by mouth 1 time each day. Active levothyroxine (Synthroid, Levoxyl) 112 MCG tablet Take 1 tablet by mouth daily before breakfast. Active spironolactone (Aldactone) 25 MG tablet Take 1 tablet by mouth daily. Active diphenoxylate-a tropine (Lomotil) 2.5-0.025 MG tablet TAKE ONE TABLET BY MOUTH FOUR TIMES DAILY NEEDED FOR DIARRHEA MAY CAUSE DROWSINESS Active cyanocobalamin 1000 MCG tablet Take 1 tablet by mouth daily. Active Active Problems Problem Noted Date Diagnosed Date Lymphedema 12/07/2024 Encounters Date Type Department Care Team Description 12/09/2024 Telephone [facility] [place] Carlos Enrique [address] [place] [address] Lisbet Mann 12/07/2024 1:00 PM EDT [facility] [address] [place] [address] Jane Arboleda PA Lymphedema (Primary Dx) 12/07/2024 Travel from Last 3 Months Social History Tobacco Use Types Packs/Day Years Used Date Smoking Tobacco: Never Passive Smoke Exposure: Never Smokeless Tobacco: Never Tobacco Cessation:Counseling Given: Not Answered Alcohol Use Standard Drinks/Week Comments Never 0 (1 standard drink = 0.6 oz pur e alcohol) AUDIT-C Answer Date Recorded Q1: How often do you have a drink containing alcohol? Never 12/07/2024 Q2: How many drinks containi ng alcohol do you have on a typical day when you are drinking? Patient does not drink Q3: How often do you have si x or more drinks on one occasion? Never 12/07/2024 Comments Unknown Sex and Gender Information Value Date Recorded Sex Assigned at Not on file Legal Sex Female 8:48 PM EDT Gender Identity Not on file Sexual Orientation Not on file Last Filed Vital Signs Vital Sign Reading Time Taken Comments Blood Pressure 122/79 12/07/2024 1:03 PM EDT Pulse 64 12/07/2024 12:36 PM EDT Temperature 36.6 C (97.8 F) 12/07/2024 12:36 PM EDT Respiratory Rate - - Oxygen Saturation 95% 12/07/2024 12:36 PM EDT Inhaled Oxygen Concentration - - Weight 125 kg (276 lb 0.3 oz) 12/07/2024 1:03 PM EDT Height 172.7 cm (5' 8 ) 12/07/2024 12:36 PM EDT Body Mass Index 41.97 12/07/2024 12:36 PM EDT Plan of Treatment Health Maintenance Due Date Last Done Comments [facility]-Bone Density Scan 1940 [facility]-Depression Screening 1940 [facility]-Medicare Annual Wellness (AWV) 1940 [facility]-/Child/Adol SDOH Screenings 1940 [id number] Vaccine (#1) 01/10/1945 [facility]- SDOH Screenings 01/10/1958 [facility]-Adult SDOH Screenings 01/10/1958 [facility]-DTaP,Tdap,and Td Vaccine s (1 - Tdap) 01/10/1959 [facility]-Pneumococcal Vaccine: 50 + Years (1 of 1 - PCV) 01/10/1990 [facility]-Zoster Vaccines (1 of 2) 01/10/1990 [facility]-RSV Vaccine: 60+ Years o r (1 - 1-dose 75+ series) 01/10/2015 [facility]-Influenza Vaccine (#1) 2025 03/08/2015 [facility]-Obesity Intervention Completed 12/07/2024 HPV Vaccines Aged Out No longer eligi ble based on patient's age to complete this topic [facility]-HIB Vaccines Aged Out No longer e ligible based on patient's age to complete this topic [facility]-Hepatitis A Vaccines Aged Out No longer eligible based on patient's age to complete this topic [facility]-IPV Vaccines Aged Out No longer e ligible based on patient's age to complete this topic [facility]-Rotavirus Vaccines Aged Out No lo nger eligible based on patient's age to complete this topic Insurance [facility] MEDICARE MEDICAID-[place] Care Teams Tongsman Relationship Specialty Start Date End Date Jose Bernal MD [address] [facility] [address] [place] [address] PCP - General 12/07/24
--- OUTSIDE RECORDS SUMMARY | 2025-03-08 12:54 | XMS_ITS | Encounter Summary ---
Author Organization [facility] Address [address] [place] [address] Care Team Providers Care Vendor Relationship Manager Name Role Phone Jose Bernal MD Primary Care Provider [phone] Encounter Details Date Type Department Care Team (Late st Contact Info) Description 06/23/2013 Conversion Encounter [facility] [address] [place] [address] Interface, See Report Social History Tobacco Use Types Packs/Day Years Used Date Smoking Tobacco: Never Assessed Comments Unknown Sex and Gender Information Value Date Recorded Sex Assigned at Not on file Legal Sex Female 10:09 AM EDT Gender Identity Not on file Sexual Orientation Not on file documented as of this encounter Consult Notes * Interface, See Report - 06/23/2013 8:20 AM EST CONSULTATION NOTE - AMENDED RE. PATIENT: SOFÍA PRECIADO MED. 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 REFERRING PHYSICIAN: Dr. Jesus Alberto Moyer MEDICAL ONCOLOGIST: Dr. Yusef Koch PRIMARY CARE PHYSICIAN: Dr. Pk Alcazar SURGEON: Dr. Atilio Brown UROLOGIST: Dr. Willy Hernandez HISTORY: The patient is a very pleasant 73-year-old female who developed rectal bleeding in 11/2012. She has had abdominal pain. She said she has never really had normal stool. She has had chronic constipation and some days diarrhea. She has had bright red blood per rectum. She has also had dysuria and has been recently on an antibiotic for increased frequency of urination, hesitancy to urinate, and increased urgency. She said she keeps a constant bladder infection and wears a pad all the time because of urinary incontinence. She was found to have a sessile polypoid lesion just above the dentate line, and pathology was positive for severe squamous epithelial dysplasia. Dr. Atilio Brown evaluated the patient and a pathology revealed invasive moderately differentiated squamous cell carcinoma. She takes Coumadin daily for a history of factor V Leiden disorder. Her colonoscopy on 02/24/2013 showed sessile multilobular polypoid area above the dentate line that was biopsied. After the initial colonoscopy the patient was later seen by Dr. Atilio Brown on 06/04/2013. He found a 3 x 3 cm indurated neoplastic lesion at the verge and extending outward. Biopsies were obtained and concurrent chemoradiotherapy was recommended by Dr. Brown. 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 She has done well and had no further problems with her breast. PREVIOUS MEDICAL HISTORY: Hyperlipidemia, arthritis, bladder problems as per HPI, cataracts in her right eye (a small one), diverticulitis, hypertension, she has a pacemaker, thyroid disease, pulmonary embolism in 2008, hiatal hernia, and atrial fibrillation. PREVIOUS SURGICAL HISTORY: Cholecystectomy, bladder suspension x4, laparoscopic vaginal hysterectomy, embolectomy of pulmonary artery 2008, IVC filter placed, pacemaker, cardiac cath, tubal ligation, breast lumpectomy in 2009, and hemorrhoidectomy in 2007. FAMILY HISTORY: Her father had emphysema, congestive heart failure, myocardial infarction, and at age 69. Her mother had colon cancer, arthritis, renal disease, atrial fibrillation, and at age 99. Her sister is age 65 and has breast cancer. She has two brothers. SOCIAL HISTORY: The patient is a . HERBICIDE SPRAYER HISTORY: She underwent menses at age 16. She does not remember when her last menstrual period was. First live was age 16. She is 1, para 1, aborta zero. MEDICATIONS: Medication reconciliation for the patient was reviewed and confirmed in the electronic medical record. ALLERGIES: LIDOCAINE, SULFA DRUGS, , MORPHINE, PERCOCET. REVIEW OF SYSTEMS: There is a complete and thorough review of systems documented in the chart. It is positive for: Chills. Itchy, dry eyes. She said she had epistaxis last week. Constant sinusitis and dripping from her nose. Dry cough. Gastrointestinal and genitourinary as per HPI. Chronic low back pain. Headaches in the morning. Rash and itching. Bruises easily. Rectal bleeding. Sometimes discharge from the left breast. She has dentures. Wears corrective lenses. Has a pacemaker. PHYSICAL EXAMINATION: GENERAL: She is a well-developed, well-nourished female in no distress. ECoG score 1-2. VITAL SIGNS: Height 69 inches. Weight 267.7. Temperature 97.5. Blood pressure 143/54. Pulse 70. HEENT: Head is normocephalic, atraumatic. Extraocular muscles are intact. Sclerae anicteric. LYMPHATICS: No cervical or supraclavicular lymphadenopathy. LUNGS: Clear to auscultation bilaterally. HEART: Normal S1, S2 with no murmurs, rubs, or gallops. ABDOMEN: Obese. Nontender, nondistended with no hepatosplenomegaly. SKIN: She has irritation and erythema in the skin folds in the groin and under her pannus. She has no inguinal lymphadenopathy. RECTAL: Exam reveals an approximately 3 to 4 cm area of tumor extending from the dentate line out on to the surface of the perianal area. It runs from the 12:00 to 3:00-4:00 position of the anus. There is excoriation in the area from urine, that is erythematous and angry appearing. The rectum is negative. 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 RECOMMENDATIONS: I recommend combined chemoradiotherapy on IGR regimen. The pros and cons, risks and benefits of treatment were discussed with the patient and her [id number] and she wants to undergo therapy. We will simulate the doyle today to try to get started as soon as possible. I recommend cotton material in the folds under the pannus and in the groin to help with the irritation. I recommend AandD ointment to the perineal region to act as a barrier against the urinary incontinence. We went over skin care staging and side effects at length. According to NCCN guidelines we will treat the pelvis from L5 to S1 with 30.6 Gy and then reduce the top field for an additional 14.4 Gy in 8 fractions and treat the node negative inguinal region to 36 Gy. We will then treat to 45 Gy and boost the lesion if there is residual disease. We cannot utilize IMRT treatment planning as she is too large. Thank you very much for allowing me to participate in her care. ADDENDUM: Due to the patient's size I did not think we would be able to utilize IMRT treatment planning but fortunately we are and I recommend IMRT because the tumor is irregular and in close proximity to critical structures. We can decrease the dose to bowel utilizing IMRT treatment planning. We can more efficiently treat the groin nodes without increasing the dose to the femoral heads. Sincerely, Halle Dukes M.D.* [facility] [place] Voice Rec ID: #[id number] Original Voice Rec ID: #[id number] Document ID: #[id number] Rev. #2 cc: Jesus Alberto Moyer M.D.* Yusef Koch M.D.* Pk Alcazar D.O.* Atilio Brown M.D.* Willy Hernandez M.D.* DO NOT TEXT EDIT THIS LINE :HARD ROCK MINER:[id number]: Authenticated by HALLE DUKES M.D. On 07/11/2013 04:18:38 PM documented in this encounter Plan of Treatment Not on file documented as of this encounter Visit Diagnoses Not on filedocumented in this encounter Care Teams Vendor Relationship Manager Relationship Specialty Start Date End Date Jose Bernal MD [address] [facility] [address] [place] [address] PCP - General Internal Medicine 08/21/17 documented as of this encounter
--- OUTSIDE RECORDS SUMMARY | 2025-03-08 12:54 | XMS_ITS | Clinical Summary ---
Author Organization [facility] Address [address] [place] [address] Phone Care Team Providers Care Home Health Care Worker Name Role Phone Pk Payton MD [ ] Conditions or Problems Problem Name Problem Code Onset Date Status Entry Date Provider Comment Standard Description Annotate HX OF ANTINEOPLASTIC CHEMOTHERAPY 705794327 (SNOMED CT) 09/17 Active 09/17 Mary Lou Julio H/O: chemotherapy HX OF ALLERGY TO SULFONAMIDES Z88.2 (ICD-10-CM ) 09/17 Active 09/17 Mary Lou Julio Allergy status to sulfonamides C. DIFF COLITIS A04.7 (ICD-10-CM ) 09/17 Active 09/17 Mary Lou Julio Enterocolitis due to Clostridium difficile Urinary Tract Infection 13202483 (SNOMED CT) 09/17 Active 09/17 Mary Lou Julio Urinary tract infectious disease E. COLI INFECTION B96.20 (ICD-10-CM ) 09/17 Active 09/17 Mary Lou Kim Unspecified Escherichia coli [E. 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 Provider KARENOR-CON CR-TABS POTASSIUM CHLORIDE CR-TABS 22217941089 Rukhsana Kelly LEVOTHYROXINE SODIUM TABS LEVOTHYROXINE SODIUM TABS 88204544798 Rukhsana Kelly OSTEO BI-FLEX ADV DOUBLE ST ORAL TABLET [facility] [place] [place] 91193775898 Rukhsana Kelly ATENOLOL TABS ATENOLOL TABS 92426125749 Rukhsana Kelly VANCOMYCIN HCL 250 MG CAPS VANCOMYCIN HCL 61146072343 Rukhsana Kelly METRONIDAZOLE 500 MG TABS METRONIDAZOLE 87811033086 Rukhsana Kelly METROCREAM 0.75 % CREA METRONIDAZOLE 39000599458 Rukhsana Kelly MICATIN 2 % EXTERNAL CREAM MICONAZOLE NITRATE 78619210131 Rukhsana Kelly CVS MELATONIN 5 MG TABS MELATONIN 86785953240 Rukhsana Kelly CVS MELATONIN 5 MG TABS MELATONIN 42274765068 Nori Bradshaw ZOFRAN 4 MG ORAL TABLET ONDANSETRON HCL 90332207572 Nori Bradshaw VASOLEX EXTERNAL OINTMENT TRYPSIN-CASTOR OIL-STANLEY BALSAM 46395450784 Nori Bradshaw NYAMYC 746363 UNIT/GM POWD NYSTATIN 85130411113 Nori Bradshaw MICATIN 2 % EXTERNAL CREAM MICONAZOLE NITRATE 20116612551 Nori Bradshaw METROCREAM 0.75 % CREA METRONIDAZOLE 86230227706 Nori Bradshaw SYNTHROID 88 MCG TABS LEVOTHYROXINE SODIUM 38173246284 Nori Bradshaw METRONIDAZOLE 500 MG TABS METRONIDAZOLE 53900553043 Nori Bradshaw ALPH-E 400 UNIT ORAL CAPSULE VITAMIN E 04039027434 Nori Bradshaw MAGNESIUM OXIDE 400 MG TABS MAGNESIUM OXIDE 94084643568 Nori Bradshaw VANCOMYCIN HCL 250 MG CAPS VANCOMYCIN HCL 10194395661 Nori Bradshaw COUMADIN TABLET WARFARIN SODIUM TABS 41588021359 Nori Bradshaw BETAPACE 120 MG TABS SOTALOL HCL 36899591549 Nori Bradshaw MYRBETRIQ 50 MG [id number] MIRABEGRON 48812852962 Nori Bradshaw RA PROBIOTIC DIGESTIVE CARE ORAL CAPSULE LACTOBACILLUS RHAMNOSUS (GG) 84476894711 Nori Bradshaw OSTEO BI-FLEX ADV DOUBLE ST ORAL TABLET [facility] [place] [facility] 22224384428 Nori Bradshaw Medications Administered No information available. Allergies, Adverse Reactions, Alerts Allergy Name Reaction Description Start Date Severity Status Provider CELEBREX Moderate No Longer Active Rukhsana Crance PENICILLIN V POTASSIUM Moderate No Longer Active Rukhsana Crance TERRAMYCIN Moderate Active Nori Bradshaw SKELAXIN Moderate Active Nori Bradshaw PROPOXYPHENE HYDROCHLORIDE Moderate Active Nori Bradshaw PERCOCET Moderate Active Nori Rbadshaw PENICILLIN V POTASSIUM Moderate No Longer Active Nori Bradshaw OXYTETRACYCLINE HCL Moderate Active Nori Bradshaw MORPHINE SULFATE Moderate Active Pa uline Bradshaw LIDOCAINE Moderate Active Nori Bradshaw Moderate Active Nori Bradshaw CELEBREX Moderate No Longer Active Nori Bradshaw SULFA Moderate Active Nori Bradshaw Results Date Name Value Unit Range Flag Description Clinical Lists Update: Prelo ad SMOK STATUS 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 Office Visit: [id number] MEDS REVIEW Done Documenta tion of current medications (procedure) Chart Maintenance: Lab updat e 05/18/14 BASO# 0.0 Basophils [#/ volume] in Blood BASOPHIL % 0.2 % Basophils/ 100 leukocytes in Blood by Manual count EOS ABSLT 0.1 10*3/uL Eosinophils [#/volume] in Blood % EOS AUTO 1.7 % Eosinophil s/100 leukocytes in Blood by Automated count MONOSCT AUTO 0.80 10*3/uL Monocyte s [#/volume] in Blood by Automated count MONOCYTE % 12.5 % Monocytes/ 100 leukocytes in Blood by Automated count LYMPHCT AUTO 1.38 10*3/mm3 Lymphoc ytes [#/volume] in Blood by Automated count LYMPHS % 21.6 % Lymphocytes/ 100 leukocytes in Blood by Automated count ABS NEUTROPH 4.05 10*3/uL Neutroph ils [#/volume] in Blood PMN % 63.5 % Neutrophils/1 00 leukocytes in Blood by Automated count PLATELETS 231 10*3/mm3 Platelets [#/volume] in Blood by Automated count HCT 45.4 % Hematocrit [V olume Fraction] of Blood by Automated count HGB 15 g/dL Hemoglobin [Mass/volume] in Blood RBC 5.22 10*6/mm3 Erythrocytes [#/volume] in Blood by Automated count WBC 6.4 10*3/mm3 Leukocytes [ #/volume] in Blood by Automated count Chart Maintenance: lab updat e for 07/08/14 INR 1.98 INR in [place] et poor plasma by Coagulation assay PT PATIENT 20.1 s Prothrombi n time (PT) Plan of Care Type Date Detail Pending order C-Diff PCR Procedures No information available. Vital Signs Date Name Value Unit Description BMI (Body Mass Index) 38.05 kg/m2 Bod y Mass Index (Ratio) Body Temperature 97.5 [degF] temperat ure E&M BP Diastolic 76 mm[Hg] blood pressu re, diastolic BP Systolic 142 mm[Hg] blood pressur e, systolic Heart Rate 72 /min pulse rate Height 70 [in_us] height E&M Respiratory Rate 16 /min respirat ory rate E&M Weight Measured 264.2 [lb_av] weight E& M Weight Measured 264.2 [lb_av] weight E& M Immunizations No information available. Advance Directives No information available.
--- OUTSIDE RECORDS SUMMARY | 2025-03-08 12:55 | XMS_ITS | Encounter Summary ---
Author Organization [facility] Address [address] [place] [address] Care Team Providers Care [employer] Name Role Phone Jose Bernal MD Primary Care Provider [phone] Encounter Details Date Type Department Care Team (Late st Contact Info) Description 06/18/2013 Conversion Encounter [facility] HISTORICAL CONV [address] [place] [address] Interface, See Report Social History Tobacco Use Types Packs/Day Years Used Date Smoking Tobacco: Never Assessed Comments Unknown Sex and Gender Information Value Date Recorded Sex Assigned at Not on file Legal Sex Female 10:09 AM EDT Gender Identity Not on file Sexual Orientation Not on file documented as of this encounter H&P Notes * Interface, See Report - 06/18/2013 12:39 PM EST Aitlio Phan M.D. ' Jared Koch M.D. ' Peterson Rahman M.D. ' Marilee Moore M.D. ' Anabel Quintanilla M.D. ' JENNIE Robles BUSINESS OFFICE ASSOCIATE [address] [facility], [address] [place] [address] [facility] NEW PATIENT EVALUATION AAKASH ALONZO : 1940 DATE OF VISIT: 06/18/2013 REFERRING PHYSICIAN: Dr. Jesus Alberto Moyer PRIMARY CARE PHYSICIAN: Dr. Pk Alcazar PROBLEM LIST: 1. 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 2. 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 a. Lumpectomy July 2009. 3. Factor V Leiden with history of the pulmonary embolus January 2009. 4. Hypertension. 5. Hypothyroidism. 6. Osteoarthritis. CHIEF COMPLAINT: Rectal bleeding. HISTORY OF PRESENT ILLNESS: Ms. Alonzo is a 73-year-old female with a history of rectal bleeding since November 2012. She reports having some difficulty with constipation and frequent passing of blood with straining stools. She had a colonoscopy 02/24/2013 and was found to have a sessile polypoid area just above the dentate line. Pathology came back severe squamous epithelial dysplasia. She was referred to Dr. Atilio Brown for evaluation. Pathology obtained from the specimen on 06/10/2013 showed squamous carcinoma in situ, no definitive evidence of invasion. Invasive, moderately differentiated squamous cell carcinoma. Ms. Alonzo has a history of factor V Leiden disorder and takes Coumadin daily. This is managed by Dr. Pk Alcazar. PAST MEDICAL HISTORY: 1. Hyperlipidemia. 2. Hypothyroidism. 3. Pacemaker. 4. Osteoarthritis. 5. Factor V Leiden mutation. 6. Hiatal hernia. 7. Atrial fibrillation. 8. Hypertension. 9. Cataract. 10. Diverticulosis. IMMUNIZATIONS: She has had her influenza A vaccination, pneumococcal vaccination, as well as a tetanus booster. PAST SURGICAL HISTORY: 1. Cholecystectomy. 2. Bladder suspension x4. 3. Laparoscopic vaginal hysterectomy. 4. Embolectomy of pulmonary artery January 2009, inferior vena cava filter placement. 5. Pacemaker implant 12/2012. 6. Cardiac catheterization 2008. 7. Tubal ligation. 8. Left breast lumpectomy 07/[address] Moyer. 9. Hemorrhoidectomy [address] Brown. DIAGNOSTIC STUDIES: 1. Colonoscopy 04/14/2013. 2. Colonoscopy [address] Cedeño. 3. Mammogram 04/07/2013, next due 09/2013. FAMILY HISTORY: Father with history of emphysema, congestive heart failure and DC, at age 69. Mother with history of colon cancer, arthritis, renal disease, atrial fibrillation, at age 99. Sister age 65 with breast cancer. Two brothers with no history of cancer. SOCIAL HISTORY: Ms. Alonzo is . She has one child that she gave up for adoption when she was 16. She has no other children. She is retired. 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 She is not a cigarette smoker, does not drink alcohol, or use illicit drugs. MEDICATIONS: 1. Warfarin 4 mg p.o. q. day. 2. Lisinopril 5 mg p.o. q. day. 3. Myrbetriq 25 mg p.o. q. day. 4. Sotalol 120 mg p.o. 2 times a day. 5. Levothyroxine 88 mcg p.o. q. day. 6. Bumetanide 1 mg p.o. q. day. 7. Klor-Con 10 mEq p.o. q. day. 8. Magnesium oxide 400 mg p.o. twice a day. 9. Ketoconazole 2% cream topically p.r.n. as needed. 10. Osteo Bi-Flex p.o. twice a day. 11. Vitamin E p.o. once a day. 12. Multivitamin once a day. ALLERGIES: 1. Lidocaine rash. 2. Morphine rash. 3. Percocet rash. 4. Sulfa drugs rash. REVIEW OF SYSTEMS: GENERAL: No changes in weight. No weakness, fever, chills, night sweats. Positive for fatigue. SKIN: No changes in skin, hair, or nail. No sores, lumps, or moles. Positive for occasional nahun rash under her breast. HEAD: No trauma, nausea, vomiting, or visual changes. Occasional stress headaches. She wears corrective lenses. No blurriness, tearing, itching, or acute visual loss. Has a history of cataract in the right eye. EARS: No hearing loss, tinnitus, vertigo, discharge, or earache. NOSE/SINUSES: Occasional rhinorrhea. No stuffiness, sneezing, itching, allergy, or epistaxis. MOUTH/THROAT/NECK: No bleeding gums, hoarseness, sore throat, swollen neck. BREAST: No recent skin changes, masses, lumps, pain discharge. She does have a history of lumpectomy for DCIS in 2010. CARDIAC: History of hypertension. No angina, palpitations, dyspnea on exertion, orthopnea. RESPIRATORY: Positive for a dry nonproductive cough. No wheezing, shortness of air, or hemoptysis. GI: Positive for abdominal pain, rectal bleeding, bloody stools, changes in bowel habits, and constipation. No history of appetite loss, nausea, vomiting, dysphagia, dyspepsia. REVIEW OF SYSTEMS - continued: URINARY: She has a recent history of urinary frequency, urgency, and dysuria. She was diagnosed with urinary tract infection. She was prescribed Keflex but sent this prescription to a mail-in pharmacy and is still waiting for the prescription. VASCULAR: No claudication, varicose veins, thrombosis. MUSCULOSKELETAL: No muscle weakness, pain, joint stiffness, range of motion, joint redness, or swelling. She does have some chronic low back pain. NEUROLOGIC: No loss of sensation, numbness, tingling, tremors, weakness, or paralysis or seizures. HEMATOLOGIC: She does have the factor V Leiden. ENDOCRINE: No heat or cold intolerance, excessive sweating, polyuria, polydipsia, polyphagia. She does have hypothyroidism. PSYCHIATRIC: No mood, anxiety, depression, or memory problems. PHYSICAL EXAM: GENERAL: She is an alert adult female who seems comfortable. VITAL SIGNS: Temperature 97.8. Heart rate 80. Blood pressure 128/66. Respiratory rate 18. Weight 266 pounds. Performance status zero. HEENT: Sclerae are anicteric. Extraocular movements intact. Pupils equal and reactive to light. Oral mucosa is pink without ulcers or nahun. HEART: Regular rhythm and rate. LUNGS: Clear to auscultation bilaterally. No rubs, crackles, or wheezes. ABDOMEN: Normal bowel sounds. Soft, nontender, without masses or organomegaly. EXTREMITIES: Without edema. Joints had no erythema or effusion. No calf tenderness. SKIN: No rashes or purpura. NODES: There were no cervical, supraclavicular, axillary, or inguinal nodes felt. NEUROLOGIC: She is alert and answers all questions appropriately. She moves all extremities normally. She has normal gait and station. COMPLETION: Per Dr. Jared Koch: PHYSICAL EXAMINATION - continued: LUNGS: No rub, crackles or wheezes. ABDOMEN: Soft without masses or organomegaly. There were no cervical, supraclavicular, axillary, or inguinal lymph nodes felt. LABS: Her path report showed invasive moderately differentiated squamous carcinoma was reviewed. IMPRESSION: Squamous anal carcinoma. This is in the setting of her other health problems. PLAN: 1. I reviewed with Ms. Alonzo and her [id number] my recommendation for combined radiation and chemotherapy using 5-FU and mitomycin. I reviewed with her the rationale, potential risks and benefits, and the most common side effects, and she seems to understand this well. She has been gathering some information about this. She has seen Dr. Dukes previously and we will ask Dr. Dukes to see her about her radiation. 2. She will need a PICC line for her chemotherapy and we will schedule this. 3. She will continue her warfarin since she does have both a history of pulmonary embolus and factor V Leiden mutation, as well as her atrial fibrillation. 4. I will coordinate the timing of her chemoradiation with Dr. Dukes. Lisbet Mendoza NP* Jared Koch M.D. SA/rxalamos; RICKYE/rxalw Doc. ID [id number] Rev. #1 cc: Atilio Brown M.D.* Pk Alcazar D.O.* Jesus Alberto Moyer M.D.* Stefan Holly M.D.* AAKASH ALONZO : 1940 DATE OF VISIT: 06/18/2013 Page 2 of 5 Page 1 of 5 DO NOT TEXT EDIT THIS LINE :COSH:841: Authenticated and Edited by LISBET MENDOZA APRN On 06/23/13 4:20:10 PM * Interface, See Report - 06/18/2013 12:39 PM EST Atilio Phan M.D. ' Jared Koch M.D. ' Peterson Rahman M.D. ' Marilee Moore M.D. ' Anabel Quintanilla M.D. ' Tasia Mills APRN ' Lisbet Mendoza APRN [facility] [facility], [address] [place] [address] [facility] OFFICE NOTE AAKASH ALONZO : 1940 DATE OF VISIT: 06/25/2013 PROBLEM LIST: 1. Squamous cell carcinoma of the anus. 2. History of DCIS left breast. 3. Factor V Leiden mutation with history of a pulmonary embolus in January 2009. She is now on warfarin for this. CHIEF COMPLAINT: Followup of anal carcinoma. HISTORY: Ms. Alonzo has continued to have some bleeding with her bowel movements. This was increased yesterday. She has seen Dr. Dukes and is planned for her radiation. She does not have any new symptoms. She is anxious about her treatment plan. REVIEW OF SYSTEMS: As in the present illness. No orthostatic dizziness, palpitations, chest pain, or syncope to suggest increased anemia. MEDICATIONS: Her medication list was examined and medication reconciliation for the patient reviewed in the electronic medical record. PHYSICAL EXAM: GENERAL: She is comfortable appearing. HEENT: Sclerae are anicteric. Oral mucosa is normal. HEART: Regular rhythm and rate. LUNGS: No rub, crackles or wheezes. ABDOMEN: Soft without masses or organomegaly. EXTREMITIES: Without edema or cords. NODES: There were no lymph nodes felt. : Exam of the anus shows the polyploid mass. There was no bleeding during the examination. IMPRESSION: Squamous carcinoma of the anus in a patient who is on warfarin. PLAN: 1. We will plan to give her combined chemoradiation. I have discussed this with Dr. Dukes who plans to start her radiation next week. We will do mitomycin and 5-FU infusion. We will plan a PICC line for her chemotherapy. 2. We did discuss the drug interaction of warfarin and 5-FU. I will check her pro-time of next week and every Friday. We will probably need to do this until all of her chemotherapy is completed. 3. I reviewed with her the use of her antiemetics and I will have our nursing staff go over this more with her. 4. I will see her back in a couple of weeks and we will monitor her closely during treatment. Jared Koch M.D.* RME/rxblt Doc. ID [id number] Rev. #0 cc: Atilio Brown M.D.* Pk Alcazar D.O.* Stefan Holly M.D.* ALONZOAAKASH CABRAL : 1940 DATE OF VISIT: 06/25/2013 Page 2 of 2 Page 1 of 2 DO NOT TEXT EDIT THIS LINE :[id number]: Authenticated by JARED KOCH M.D. On 07/01/2013 03:56:10 PM * Interface, See Report - 06/18/2013 12:39 PM EST Atilio Phan M.D. ' Jared Koch M.D. ' Peterson Rahman M.D. ' Marilee Moore M.D. ' Anabel Quintanilla M.D. ' Tasia Mills APRN ' Lisbet Mendoza APRN [address] [facility], [address] [place] [id number] [facility] OFFICE NOTE AAKASH ALONZO : 1940 DATE OF VISIT: 07/12/2013 PROBLEM LIST: 1. Squamous cell carcinoma of the anus. 2. History of DCIS left breast. 3. Factor V Leiden mutation with history of a pulmonary embolus in January 2009. She is now on warfarin for this. CHIEF COMPLAINT: Fatigue. HISTORY: Ms. Alonzo reports her rectal bleeding has improved with her radiation treatments. She started radiation on 06/30/2013 and is scheduled for 6 weeks of radiation. She experienced several days of diarrhea but has started to use Imodium and has seen improvement. She also complains of increased fatigue related to her radiation and chemotherapy treatment. She is being followed by her urologist concerning frequent urinary tract infections. She most recently saw her urologist on 07/09/2013. She continues to have some nausea but reports the Zofran helps. No recent fevers, chills, night sweats, or unintentional weight loss. No nose bleeding, gum bleeding, or unusual bruising. REVIEW OF SYSTEMS: As mentioned in HPI. No cough, shortness of air, or hemoptysis. No chest pain, palpitations, orthopnea. MEDICATIONS: Her medication list was examined and medication reconciliation for the patient has been reviewed in the electronic medical records. PHYSICAL EXAMINATION: GENERAL: She is comfortable appearing. VITAL SIGNS: Temperature 97.5. Heart rate 110. Blood pressure 90/63. Respiratory rate 18. Weight 266 pounds. Performance status 1. HEENT: Sclera anicteric, oral mucosa normal. HEART: Regular rhythm, rate tachycardic. LUNGS: Clear to auscultation bilaterally. No rubs, crackles, or wheezes. ABDOMEN: Normal bowel sounds. Soft, nontender, without masses or organomegaly. EXTREMITIES: Without edema. No calf tenderness. NODES: There were no lymph nodes felt. DIAGNOSTIC DATA: CT scan of abdomen and pelvis from 07/01/2013: Diffuse thickening of the rectal and anal mucosa. IVC filter. Subcentimeter left renal angiomyolipoma. IMPRESSION: Squamous carcinoma of the anus. She is currently tolerating adjuvant chemotherapy and radiation. PLAN: 1. I will continue her mitomycin and 5-FU as planned. 2. I will obtain labs today, CBC, PT and INR. We will adjust her Coumadin as needed. She will obtain a PT and INR weekly on Mondays. 3. I will see her back in 2 weeks. She has been instructed to contact us in the interim if any new symptoms arise. Lisbet Mendoza NP* SA/rxbella Doc. ID [id number] Rev. #0 cc: Atilio Brown MD* Pk Alcazar D.O.* Stefan Holly M.D.* AHMET ALONZOT : 1940 DATE OF VISIT: 07/12/2013 Page 2 of 2 Page 1 of 2 DO NOT TEXT EDIT THIS LINE :[facility]:841: Authenticated and Edited by LISBET MENDOZA APRN On 07/16/13 9:50:09 AM documented in this encounter Plan of Treatment Not on file documented as of this encounter Visit Diagnoses Not on filedocumented in this encounter Care Teams [employer] Relationship Specialty Start Date End Date Jose Bernal MD [address] [facility] [address] [place] [address] PCP - General Internal Medicine 08/21/17 documented as of this encounter
--- OUTSIDE RECORDS SUMMARY | 2025-03-08 12:55 | XMS_ITS | Clinical Summary ---
Author Organization [facility] Address [address] [address] Care Team Providers Care Foam Molder Name Role Phone Jose Bernal MD Primary Care Provider Allergies Active Allergy Reactions Criticality Noted Date Comments Fs-Zzlitm-Rgynozfv-Scopolamine Rash Low 12/03 Lidocaine Rash Low 12/04/2015 Morphine And Codeine Rash Low 12/04/2015 Oxycodone-Acetaminophen Rash Low 12/04/2015 Metaxalone Rash Low 12/04/2015 Sulfa Antibiotics Rash Low 12/04/2015 Oxytetracycline Rash Low 12/04/2015 Medications atenolol (TENORMIN) 25 MG tablet 10/24/2015 Active bumetanide (BUMEX) 1 MG tablet 09/29/2015 Active indapamide (LOZOL) 2.5 MG tablet Take 5 mg by mouth Every Other Day. 09/11/2015 Active levothyroxine (SYNTHROID, LEVOTHROID) 88 MCG tablet 09/29/2015 Active potassium chloride (K-DUR,KLOR-CON ) 20 MEQ CR tablet 12/01/2015 Active topiramate (TOPAMAX) 50 MG tablet Take 50 mg by mouth At Night As Needed. 11/17/2015 Active warfarin (COUMADIN) 3 MG tablet 10/31/2015 Active Docusate Calcium (STOOL SOFTENER PO) Take 1 tablet by mouth every other day. Active Loperamide HCl (IMODIUM PO) Take by mouth as needed. Active Mirabegron ER (MYRBETRIQ) 25 MG tablet sustained-relea se 24 hour Take by mouth. Active vitamin E 1000 UNIT capsule Take 1,000 Units by mouth daily. Active CALCIUM CITRATE PO Take 1 tablet by mouth daily. Active cephalexin (KEFLEX) 500 MG capsule Take 1 capsule by mouth 4 (Four) Times a Day. 0 11/04/2016 Active VOLTAREN 1 % gel gel 08/12/2016 Active anastrozole (ARIMIDEX) 1 MG tabletIndicatio ns:Malignant neoplasm of upper-outer quadrant of left female breast TAKE 1 TABLET EVERY DAY 90 tablet 3 08/15/2017 Active Active Problems Problem Noted Date Diagnosed Date Warfarin anticoagulation 12/18/2015 Factor 5 Leiden mutation, heterozygous 6 Malignant neoplasm of anus 12/15/2015 Cancer Staging:Clinical stage from 06/18/2013:Stage II(T2, N0, M0) - Signed by Lisbet Mendoza APRN on 12/15/2015 Pathologic: Unsigned Malignant neoplasm of upper- outer quadrant of left female breast 12/15/2015 Cancer Staging:Pathologic stage from 08/02/2014:Stage Unknown(T1c, NX, cM0) - Signed by Lisbet Mendoza APRN on 12/15/2015 Clinical: Unsigned Immunizations Immunization Administration Dates Next Due FluMist 2-49yrs 03/08/2015 Family History Medical History Relation Name Comments Hypertension Father Cancer Mother Breast cancer Sister 1 Breast cancer Sister 2 BRCA 1/2 Neg Hx Endometrial cancer Neg Hx Ovarian cancer Neg Hx Relation Name Status Comments Father Mother Sister 1 Sister 2 Social History Tobacco Use Types Packs/Day Years Used Date Smoking Tobacco: Never Smokeless Tobacco: Never Alcohol Use Standard Drinks/Week Comments No 0 (1 standard drink = 0.6 oz pur e alcohol) Abuse Screen Answer Date Recorded Unsafe at Home or Work/School Not on file Feels Threatened by Someone? Not on file 01/2023 Does Anyone Keep You from Co ntacting Others or Doint Things Outside the Home? Not on file 03/03/2023 Physical Sign of Abuse Present Not on file 1 Housing Stability Answer Date Recorded Current Living Arrangements Not on file 01/2023 Potentially Unsafe Housing Conditions Not on asiya e 03/03/2023 Family and Community Support Answer Abimael e Recorded Help with Day-to-Day Activities Not on file 03/03/2023 Lonely or Isolated Not on file 03/03/2023 Employment Answer Date Recorded Do you want help finding or keeping work or a kevin b? Not on file 03/03/2023 Disabilities Answer Date Recorded Concentrating, Remembering, or Making Decisions Difficulty Not on file 03/03/2023 Doing Errands Independently Difficulty Not on fi le 03/03/2023 Education Answer Date Recorded Help with school or training? Not on file Preferred Language Not on file 03/03/2023 Comments No Sex and Gender Information Value Date Recorded Sex Assigned at Not on file Legal Sex Female 10:09 AM EDT Gender Identity Not on file Sexual Orientation Not on file Last Filed Vital Signs Vital Sign Reading Time Taken Comments Blood Pressure 131/67 11/18/2016 10:19 AM EDT right forearm Pulse 96 11/18/2016 10:19 AM EDT Temperature 36.6 C (97.9 F) 11/18/2016 10:19 AM EDT Respiratory Rate 28 11/18/2016 10:1 9 AM EDT Oxygen Saturation 94% 11/18/2016 10: 19 AM EDT room air Inhaled Oxygen Concentration - - Weight 117 kg (258 lb) 11/18/2016 10:19 AM EDT Height 175.3 cm (5' 9 ) 11/18/2016 10:1 9 AM EDT Body Mass Index 38.1 11/18/2016 10:19 AM EDT Plan of Treatment Health Maintenance Due Date Last Done Comments TDAP/TD VACCINES (1 - Tdap) 01/10/1959 Pneumococcal Vaccine 50+ (1 of 1 - PCV) 01/10/1990 RSV Vaccine - Adults (1 - 1- dose 75+ series) 01/10/2015 DXA SCAN 04/13/2016 04/13/2014 ANNUAL PHYSICAL 11/18/2016 ZOSTER VACCINE (2 of 2) 06/09/2018 04/14/2018 INFLUENZA VACCINE 12/24/2024 03/11/2018, 03/08/2015 COVID-19 Vaccine (1 - 2023-2 5 season) 2025 MAMMOGRAM Discontinued 08/24/2018, 10/0 05/2017, 08/21/2017, Additional history exists Procedures Procedure Name Priority Date/Time Associated Diagnosis Comments MAMMO DIAGNOSTIC DIGITAL TOMOSYNTHESIS BILATERAL W CAD Routine 08/24/2018 1:56 PM EDT Abnormal mammogram DEXA BONE DENSITY AXIAL Routine 04/13/2014 8:31 AM EST from Last 3 Months or Most Recently Relevant to Health Maintenance Results * Mammo Diagnostic Digital Tomosynthesis Bilateral With CAD (08/24/2018 1:56 PM EDT) Anatomical Region Laterality Modality Breast Bilateral Mammography 08/24/2018 1:40 PM EDT Impressions 08/24/2018 1:42 PM EDT Stable bilateral mammogram BI-RADS CATEGORY: 2, BENIGN RECOMMENDATION: Return to screening mammography CAD was utilized. The standard false-negative rate of mammography is between 10% and 25%. Complex patterns or increased breast density will markedly elevate the false-negative rate of mammography. A letter, in lay terminology, with the results of this exam was given to the patient at the time of the visit. This report was finalized on 08/24/2018 1:[address] Ramin Magaña MD. Narrative 08/24/2018 1:42 PM EDT BILATERAL DIAGNOSTIC MAMMOGRAM CLINICAL INDICATION: 78-year-old female post lumpectomy 08/02/2014 and a benign biopsy 08/24/2015. The exam is a 6 month follow-up ordered from the exam 02/23/2018. TECHNIQUE: 2-D 3-D MLO and CC views bilaterally COMPARISON: Prior exams, dating back to 2013 FINDINGS: The breasts are heterogeneously dense, which may obscure small masses.. Postsurgical changes are stable. Calcifications bilaterally are stable. There is no new mass, group of calcifications, or distortion either breast to suggest malignancy. Jose Bernal MD IMG MAMMOGRAPHY ORDERABLES Fin al Result * DEXA BONE DENSITY AXIAL (04/13/2014 8:31 AM EST) Anatomical Region Laterality Modality Wrist, Hip, L-spine N/A Radiographic Imaging 04/13/2014 8:31 AM EST Narrative 04/14/2014 8:57 AM EST DUAL-ENERGY X-RAY ABSORPTIOMETRY (DXA) INDICATION: 74-year-old female for bone mineral densitometry COMPARISON: 11/07/2009 PROCEDURE: A DXA scan was performed using a Fan TV densitometer. The lumbar spine L1-L4 was evaluated as well as the right total hip. The T-score compares the patient's bone mineral density with the peak bone mass of young normal patients. According to criteria established by the World Health Organization, patients with T-scores between 1.0 and 2.5 standard deviations BELOW the mean are osteopenic (low bone mass). Patients with T-scores EQUAL TO OR GREATER than 2.5 standard deviations below the mean are osteoporotic. The Z-score compares the patient bone mineral density with age and sex matched peers. According to the International Society for Clinical Densitometry's 2007 consensus conference: In women prior to menopause and men less than age 50, Z-scores, not T-scores are preferred. A Z-score of -2.0 or lower is defined as below the expected range for age and a Z-score above -2.0 is within the expected range for age. The WHO diagnostic criteria may be applied in women in the menopausal transition. Osteoporosis cannot be diagnosed in men under age 50 on the basis of BMD alone. TECHNICAL QUALITY: The study is of good technical quality. RESULTS: Lumber Spine: The BMD measured in the L1-L4 region is 1.557 g/cm2. The average T-score is 3.1. The Z-score is 3.7. Total Hip: The BMD measured at the right total proximal femur is 0.854 g/cm2. The T-score is -1.2. The Z-score is -0.4. Femoral Neck: The BMD measured at the right femoral neck is 0.770 g/cm2. The T-score is -1.9. The Z-score is -0.8. IMPRESSION- Normal bone mineral density in the lumbar spine. Osteopenia in the right hip The ten year fracture risk assessment is calculated at 18.7% for major systemic osteoporotic fracture and 9.2% for a hip fracture. Less than 3% risk in the [place] for hip fracture and less than 20% risk of any systemic osteoporotic fracture is considered less than the threshold for where pharmacological therapy is recommended by the National Osteoporosis Foundation. All the treatment decisions require clinical judgment and consideration of individual patient factors, including patient preferences, co-morbidities, previous drug use, risk factors not captured in the FRAX model (frailty, falls, vitamin D deficiency, increased bone turnover, interval significant decline in bone density) and possible under or over estimation of fracture risk by FRAX. Approaches to reduce osteoporosis related fracture risk include optimizing calcium and vitamin D status, appropriate weight bearing exercises and fall-prevention measurements. The National Osteoporosis Foundation recommends (http://www.nof.org/hcp/practice/pqzgoxoi-uvn-mfiamazz-guidelines/clinic ans-guide) that FDA-approved medical therapies be considered in postmenopausal women and men aged equal or greater than 50 years with : a) hip or vertebral (clinical or morphometric) fracture; b) T-score of -2.5 or less at the spine or hip; c) Ten-year fracture probability by FRAX of greater than 3% for hip fracture of greater than 20% for major osteoporotic fracture. Secondary causes of bone loss should be evaluated if clinically indicated since the etiology of low BMD cannot be determined by BMD measurement alone. FOLLOWUP: Consider repeating the study in 2-3 years to reassess the patient's status or sooner if there is some new clinical indication. INTERVAL CHANGE: The bone mineral density in the lumbar spine has worsened by 9.8 percentage points. The bone mineral density in the right hip has worsened by 15.8 percentage points. At this facility, the least significant change in the BMD at the right hip with 95% confidence is 0.012 gm/cm2 and and 0.010 g/cm2 at the lumbar spine. Reading Radiologist- RAMIN CHAVIRA Releasing Radiologist- RAMIN CHAVIRA Released Date Time- 04/14/14 0904 Alberene Stone Setter- Lemuel Pk Alcazar DO [place] DXA ORDERABLES Final Re sult from Last 3 Months or Most Recently Relevant to Health Maintenance [facility] Care Teams Foam Molder Relationship Specialty Start Date End Date Jose Bernal MD [facility] [address] [place] [address] PCP - General Internal Medicine 08/21/17
--- NOTE | 2025-03-08 13:00 | MM_ITS ---
PROCEDURE INFORMATION: Exam: MG Bilateral Screening 3D Mammography Exam date and time: 03/08/2025 1:02 PM Age: 85 years old Clinical indication: Screening examination. TECHNIQUE: Imaging protocol: Bilateral Screening tomosynthesis and 2D mammography including computer-aided detection (CAD) when performed. Best images possible, patient in wheelchair. COMPARISON: 1. MG MM DIG SCREENING MAMM BI W/CAD 03/03/2024 9:50 AM 2. MG MM DIG SCREENING MAMM BI W/CAD 02/20/2023 9:48 AM FINDINGS: MAMMOGRAPHY: Breast composition: There are scattered areas of fibroglandular density. Mass: None. Architectural distortion: Stable findings in the left breast. Calcifications: No suspicious calcifications. Asymmetric density: None. Skin thickening: None. Axillary adenopathy: None. Other findings: The power pack overlies the left chest wall. Limited study secondary to patient mobility. Correlation with a physical exam is important. IMPRESSION: No mammographic evidence of malignancy. Annual screening is recommended unless otherwise clinically indicated. ASSESSMENT: BI-RADS Category 2: Benign.
== END 2025-03-08 23:59 | disposition home or self-care (01) ==
LOC: RAD 12:52
PROVIDERS: PCP Internal Medicine; Visit Provider Internal Medicine
DX: Z12.31 Encounter for screening mammogram for malignant neoplasm of breast (principal); R92.323 Mammographic fibroglandular density, bilateral breasts
CPT/HCPCS: 77063; 77067

== ENCOUNTER 2025-03-08 13:32 | Outpatient (CLI) | payer MEDICARE, MEDICAID, SELFPAY ==
--- OUTSIDE RECORDS SUMMARY | 2025-03-08 13:36 | XMS_ITS | Clinical Summary ---
Author Organization [facility] Address [address] [place] [address] Care Team Providers Care Sound Editor Name Role Phone Jose Bernal MD Primary Care Provider [phone] Allergies Active Allergy Reactions Criticality Noted Date Comments Qw-Sgcnmw-Mdhntmob-Scopolamine Rash Low 12/03 Lidocaine Rash Low 12/04/2015 [...] A DXA scan was performed using a Victoria Plumb densitometer. The lumbar spine L1-L4 was evaluated [...] fall-prevention measurements. The National Osteoporosis Foundation recommends (http://www.nof.org/hcp/practice/hswelplp-cta-dlbfctix-guidelines/clinic ans-guide) that FDA-approved medical therapies be considered [...] RAMIN CHAVIRA Released Date Time- 04/14/14 0904 Customer Service Analyst- Lemuel Pk Alcazar DO [place] DXA ORDERABLES Final Re sult from Last 3 Months or Most Recently Relevant to Health Maintenance [facility] Care Teams Sound Editor Relationship Specialty Start Date End Date Jose Bernal MD [facility] [address] [place] [address] PCP - General Internal Medicine 08/21/17
--- OUTSIDE RECORDS SUMMARY | 2025-03-08 13:36 | XMS_ITS | Encounter Summary ---
Author Organization [facility] Address [address] [place] [address] Care Team Providers Care Improvement Nurse Name Role Phone Jose Bernal MD Primary Care Provider [phone] Encounter Details Date Type Department Care Team (Late st Contact Info) Description 06/18/2013 Conversion Encounter [facility] HISTORICAL CONV [address] [place] [address] Interface, See Report Social History [...] ' Anabel Quintanilla M.D. ' JENNIE Robles DOUBLE END PRODUCTION GRINDER [address], [address] [place] [address] Aktana NEW PATIENT EVALUATION AAKASH ALONZO : 1940 [...] history of emphysema, congestive heart failure and [place], at age 69. Mother with history of colon cancer, arthritis, renal disease, atrial fibrillation, at age 99. Sister age 65 with breast cancer. Two brothers with no history of cancer. SOCIAL HISTORY: Ms. Alonzo is . She has one child that she gave up for adoption when she was 16. She has no other children. She is retired. 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 She is not a [...] I reviewed with Ms. Alonzo and her [id number] my recommendation for combined radiation and chemotherapy [...] Jared Koch M.D. SA/rxalamos; RICKYE/rxalw Doc. ID [id number] Rev. #1 cc: Atilio Brown M.D.* Pk [...] Tasia Mills APRN ' Lisbet Mendoza APRN [facility] [facility] [address], [address] [place] [address] Aktana OFFICE NOTE AAKASH ALONZO : 1940 DATE [...] treatment. Jared Koch M.D.* RME/rxblt Doc. ID [id number] Rev. #0 cc: Atilio Brown M.D.* Pk Alcazar D.O.* Stefan Holly M.D.* ALONZOAAKASH CABRAL : 1940 DATE OF VISIT: 06/25/2013 Page 2 of 2 Page 1 of 2 DO NOT TEXT EDIT THIS LINE :COS:[id number]: Authenticated by JARED KOCH M.D. On 07/01/2013 03:56:10 PM * Interface, See Report - 06/18/2013 12:39 PM EST Atilio Phan M.D. ' Jared Koch M.D. ' Peterson Rahman M.D. ' Marilee Moore M.D. ' Anabel Quintanilla M.D. ' Tasia Mills APRN ' Lisbet Mendoza APRN [address] [facility] [address], [address] [place] [id number] Aktana OFFICE NOTE AAKASH ALONZO : 1940 DATE [...] arise. Lisbet Mendoza NP* SA/rxbella Doc. ID [id number] Rev. #0 cc: Atilio Brown MD* Pk Alcazar D.O.* Stefan Holly M.D.* AHMET ALONZOT : 1940 DATE OF VISIT: 07/12/2013 Page 2 of 2 Page 1 of 2 DO NOT TEXT EDIT THIS LINE :[facility]:841: Authenticated and Edited by LISBET MENDOZA APRN On 07/16/13 9:50:09 AM documented in this encounter Plan of Treatment Not on file documented as of this encounter Visit Diagnoses Not on filedocumented in this encounter Care Teams Improvement Nurse Relationship Specialty Start Date End Date Jose Bernal MD [address] [facility] [address] [place] [address] PCP - General Internal Medicine 08/21/17 documented as of this encounter
--- OUTSIDE RECORDS SUMMARY | 2025-03-08 13:36 | XMS_ITS | Encounter Summary ---
Author Organization [facility] Address [address] [place] [address] Care Team Providers Care Laboratory Scientist Name Role Phone Jose Bernal MD Primary Care Provider [phone] Encounter Details Date Type Department Care Team ([facility] st Contact Info) Description 03/22/2024 Orders Only External Location [address] [place] [address] Provider, External Social History Tobacco Use Types [...] on filedocumented in this encounter Care Teams Laboratory Scientist Relationship Specialty Start Date End Date Jose Bernal MD [address] [facility] [address] [place] [id number] PCP - General 12/07/24 documented as of this encounter
--- OUTSIDE RECORDS SUMMARY | 2025-03-08 13:36 | XMS_ITS | Encounter Summary ---
Author Organization [facility] Address [address] [place] [address] Care Team Providers Care Bobbin Collector Name Role Phone Jose Bernal MD Primary Care Provider [phone] Encounter Details Date Type Department Care Team (Late st Contact Info) Description 06/23/2013 Conversion Encounter [facility] HISTORICAL CONV [address] [place] [address] Interface, See Report Social History [...] AMENDED RE. PATIENT: SOFÍA PRECIADO MED. 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 [...] rectum is negative. 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 RECOMMENDATIONS: I recommend combined chemoradiotherapy on IGR regimen. The pros and cons, risks and benefits of treatment were discussed with the patient and her lajkab-ga-ghw and she wants to undergo therapy. We [...] the femoral heads. Sincerely, Halle Dukes M.D.* [facility] Voice Rec ID: #[id number] Original Voice Rec ID: #[id number] Document ID: #[id number] Rev. #2 cc: Jesus Alberto Moyer M.D.* Yusef Koch M.D.* Pk Alcazar D.O.* Atilio Brown M.D.* Willy Hernandez M.D.* DO NOT TEXT EDIT THIS LINE :SEAL EXTRUSION OPERATOR:[id number]: Authenticated by HALLE DUKES M.D. On 07/11/2013 04:18:38 PM documented in this encounter Plan of Treatment Not on file documented as of this encounter Visit Diagnoses Not on filedocumented in this encounter Care Teams Bobbin Collector Relationship Specialty Start Date End Date Jose Bernal MD [address] [facility] [address] [place] [address] PCP - General Internal Medicine 08/21/17 documented as of this encounter
--- OUTSIDE RECORDS SUMMARY | 2025-03-08 13:36 | XMS_ITS | Clinical Summary ---
Author Organization [facility] Address [address] [place] [address] Phone Care Team Providers Care Zone Manager Name Role Phone Pk Payton MD [phone] [ ] Conditions or Problems Problem Name Problem Code Onset Date Status Entry Date Provider Comment Standard Description Annotate HX OF ANTINEOPLASTIC CHEMOTHERAPY 954596057 (SNOMED CT) 09/17 Active 09/17 Mary Lou Julio H/O: chemotherapy HX OF ALLERGY TO SULFONAMIDES Z88.2 (ICD-10-CM ) 09/17 Active 09/17 Mary Lou Julio Allergy status to sulfonamides C. DIFF COLITIS A04.7 (ICD-10-CM ) 09/17 Active 09/17 Mary Lou Julio Enterocolitis due to Clostridium difficile Urinary Tract Infection 27890596 (SNOMED CT) 09/17 Active 09/17 Mary Lou Julio Urinary tract infectious disease E. COLI INFECTION B96.20 (ICD-10-CM ) 09/17 Active 09/17 Mary Lou Kim Unspecified Escherichia coli [E. 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 ) 09/17 Active 09/17 Mary Louhaylee Kim Carcinoma in situ of rectum Factor V Leiden Mutation 731601626 (SNOMED CT) 09/17 Active 09/17 Mary Lou Julio Factor V Leiden mutation Medications Medication Instructions Start Date Stop Date Generic Name [facility] Provider KARENOR-CON CR-TABS POTASSIUM CHLORIDE CR-TABS 31617414095 Rukhsana Kelly LEVOTHYROXINE SODIUM TABS LEVOTHYROXINE SODIUM TABS 45605294965 Rukhsana Kelly OSTEO BI-FLEX ADV DOUBLE ST ORAL TABLET [facility] NATURAL PRODUCTS 85120350435 Rukhsana Kelly ATENOLOL TABS ATENOLOL TABS 79391690829 Rukhsana Kelly VANCOMYCIN HCL 250 MG CAPS VANCOMYCIN HCL 23746712901 Rukhsana Kelly METRONIDAZOLE 500 MG TABS METRONIDAZOLE 99779587356 Rukhsana Kelly METROCREAM 0.75 % CREA METRONIDAZOLE 97872640186 Rukhsana Kelly MICATIN 2 % EXTERNAL CREAM MICONAZOLE NITRATE 70593859858 Rukhsana Kelly CVS MELATONIN 5 MG TABS MELATONIN 78362650165 Rukhsana Kelly CVS MELATONIN 5 MG TABS MELATONIN 80916104791 Nori Bradshaw ZOFRAN 4 MG ORAL TABLET ONDANSETRON HCL 69587794617 Nori Bradshaw VASOLEX EXTERNAL OINTMENT TRYPSIN-CASTOR OIL-STANLEY BALSAM 38337721181 Nori Bradshaw NYAMYC 839252 UNIT/GM POWD NYSTATIN 58782279725 Nori Bradshaw MICATIN 2 % EXTERNAL CREAM MICONAZOLE NITRATE 54194022610 Nori Bradshaw METROCREAM 0.75 % CREA METRONIDAZOLE 34884691750 Nori Bradshaw SYNTHROID 88 MCG TABS LEVOTHYROXINE SODIUM 44151672185 Nori Bradshaw METRONIDAZOLE 500 MG TABS METRONIDAZOLE 72500425410 Nori Bradshaw ALPH-E 400 UNIT ORAL CAPSULE VITAMIN E 83939746462 Nori Bradshaw MAGNESIUM OXIDE 400 MG TABS MAGNESIUM OXIDE 93549539911 Nori Bradshaw VANCOMYCIN HCL 250 MG CAPS VANCOMYCIN HCL 34398626045 Nori Bradshaw COUMADIN TABLET WARFARIN SODIUM TABS 03599433792 Nori Bradshaw BETAPACE 120 MG TABS SOTALOL HCL 97867344642 Nori Bradshaw MYRBETRIQ 50 MG [id number] MIRABEGRON 79296086841 Nori Bradshaw RA PROBIOTIC DIGESTIVE CARE ORAL CAPSULE LACTOBACILLUS RHAMNOSUS (GG) 82729952847 Nori Bradshaw OSTEO BI-FLEX ADV DOUBLE ST ORAL TABLET [facility] NATURAL PRODUCTS 93726859280 Nori Bradshaw Medications Administered No information available. Allergies, Adverse Reactions, Alerts Allergy Name Reaction Description Start Date Severity Status Provider CELEBREX Moderate No Longer Active Rukhsana Crance PENICILLIN V POTASSIUM Moderate No Longer Active Rukhsana Crance TERRAMYCIN Moderate Active Nori Bradshaw SKELAXIN Moderate Active Nori Bradshaw PROPOXYPHENE HYDROCHLORIDE Moderate Active Nori Bradshaw PERCOCET Moderate Active Nori Bradshaw PENICILLIN V POTASSIUM Moderate No Longer Active Nori Bradshaw OXYTETRACYCLINE HCL Moderate Active Nori Bradshaw MORPHINE SULFATE Moderate Active Pa uline Bradshaw LIDOCAINE Moderate Active Nori Bradshaw Moderate Active Nori Bradshaw CELEBREX Moderate No Longer Active Nori Bradshaw SULFA Moderate Active Nori Bradshaw Results Date Name Value Unit Range Flag Description Clinical Lists Update: Prelo ad SMOK STATUS never smoker Toba digital account 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
--- OUTSIDE RECORDS SUMMARY | 2025-03-08 13:36 | XMS_ITS | Clinical Summary ---
Author Organization [facility] Address [address] [id number] Care Team Providers Care Physical Testing Supervisor Name Role Phone Jose Bernal MD Primary Care Provider [phone] Allergies Active Allergy Reactions Criticality Noted Date Comments Lidocaine Rash Low 12/04/2015 Metaxalone Rash Low 12/04/2015 Morphine And Codeine Rash Low 12/04/2015 Oxycodone-Acetaminophen Rash Low 12/04/2015 Oxytetracycline Rash Low 12/04/2015 Fv-Ztefxx-Etgngzlr-Scopolamine Rash Low 12/03 Sulfa Drugs Rash Low [...] Type Department Care Team Description 12/09/2024 Telephone [facility] Carlos Enrique [address] [place] [address] Lisbet Mann 12/07/2024 1:00 PM EDT Office Visit [facility] [address] [place] [address] Jane Arboleda PA Lymphedema (Primary Dx) 12/07/2024 [...] Wellness (AWV) 1940 [facility]-/Child/Adol SDOH Screenings 1940 [id number] Vaccine (#1) 01/10/1945 [facility]- SDOH Screenings 01/10/1958 [...] patient's age to complete this topic Insurance [facility] MEDICARE [place]ICAID[place] Care Teams Physical Testing Supervisor Relationship Specialty Start Date End Date Jose Bernal MD [address] [address] [place] [address] PCP - General 12/07/24
[2025-03-08] MEDS: 0.9 % SODIUM CHLORIDE 50 ML 25 ML IV (14:11)
[2025-03-08] MEDS: ZOLEDRONIC ACID/MANNITOL-WATER 5 MG/100 ML PGGYBK.BTL 400 MG IV (14:11)
[2025-03-08 14:30] VITALS: BP 124/68; PULSE 76; RESP 18; TEMP 36.4; O2SAT 96
== END 2025-03-08 23:59 | disposition home or self-care (01) ==
LOC: INF 13:33
PROVIDERS: PCP Internal Medicine; Visit Provider Internal Medicine
DX: M81.0 Age-related osteoporosis without current pathological fracture (principal)
CPT/HCPCS: 96374; J3489